=== PATIENT | female | born 1955 | race Caucasian/White ===

== ENCOUNTER 2020-09-01 14:34 | Outpatient (CLI) | payer BC, SELFPAY ==
--- NOTE | 2020-09-01 14:49 | XRR_ITS ---
PROCEDURE INFORMATION: Exam: XR Lumbosacral Spine, 2 or 3 Views Exam date and time: 09/01/2020 2:52 PM Age: 65 years old Clinical indication: Pain and injury or trauma; Blunt trauma (contusions or hematomas); Low back pain; Injury details: Frequent falls i the last 6 weeks; Prior surgery; Additional info: Acute back pain TECHNIQUE: Imaging protocol: XR of the lumbosacral spine, 2 or 3 views. COMPARISON: MRI Lumbar Spine w/o [id number] 05/10/2016 7:16 AM FINDINGS: Bones/joints: Extensive surgical hardware is seen in the lower lumbar spine. Anterior surgical fusion seen in the L4 and L5 and L5-S1 levels. Metallic screws are seen in the anterior aspect of these levels. Posterior transpedicular screws and rods are in place posterior to the L4-L5 and S1 levels. No acute fracture. Normal alignment. Soft tissues: Unremarkable. XR/XR lumbar spine 2-3V* [id number] IMPRESSION: 1. Extensive orthopedic hardware is seen in the lumbar spine. 2. Otherwise negative for acute bony abnormality
== END 2020-09-01 14:35 | disposition home or self-care (01) ==
LOC: RAD 14:46
PROVIDERS: Family Provider Family Medicine; PCP Family Medicine; Visit Provider Family Medicine
DX: M54.5 Low back pain (principal)
CPT/HCPCS: 72100

== ENCOUNTER 2020-11-02 15:57 | Emergency (ER) | payer BC, SELFPAY ==
[2020-11-02 16:09] VITALS: BP 158/117; PULSE 147; RESP 22; TEMP 36.6; O2SAT 95; BMI 37.8
--- NOTE | 2020-11-02 16:14 | XRR_ITS ---
PROCEDURE INFORMATION: Exam: XR Chest Exam date and time: 11/02/2020 4:18 PM Age: 65 years old Clinical indication: Shortness of breath; Additional info: Arrythmia, SOB TECHNIQUE: Imaging protocol: XR of the chest Views: 1 view. COMPARISON: No relevant prior studies available. FINDINGS: Lungs: The lungs are somewhat hyperinflated with increased interstitial markings, likely representing COPD. No evidence of focal consolidation to suggest pneumonia. Pleural spaces: Unremarkable. No pleural effusion. No pneumothorax. Heart/Mediastinum: Unremarkable. No cardiomegaly. Bones/joints: Unremarkable. XR/XR chest 1V portable [id number] IMPRESSION: No evidence of focal consolidation. COPD changes.
--- NOTE | 2020-11-02 16:19 | ECG_ITS ---
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 Measurements Intervals [place] Rate: 146 P: MI: QRS: 72 QRSD: 110 T: 78 QT: 318 QTc: 496 Interpretive Statements ATRIAL FLUTTER/TACHYCARDIA WITH RAPID VENTRICULAR RESPONSE ST DEPRESSION, CONSIDER SUBENDOCARDIAL INJURY [0.1+ mV ST DEPRESSION] INTERPRETATION BASED ON A DEFAULT AGE OF 40 YEARS No previous ECG available for comparison Electronically Signed On 11-02-2020 22:49:39 CDT by Lacy Kauffman M.D. [id number] f
--- NOTE | 2020-11-02 16:24 | W.ED.ARRPALP ---
HPI - Arrhythmia/Palpitations General: Chief Complaint: Arrhythmia/Palpitations Stated Complaint: SOB AND HIGH HEART RATE Time Seen by Provider: 11/02/20 16:13 Source: patient and family Mode of arrival: ambulatory Limitations: no limitations History of Present Illness: HPI narrative: Remote history of [id number] female woke up from a nap less than an hour ago with palpitations, lightheadedness, and shortness of breath. She has a history of SVT >5 years ago, was treated with metoprolol for period of time, but it was discontinued over 3 years ago. She currently is wearing a Holter monitor because of frequent palpitations. Denies any caffeine, [id number] decongestants, or other triggers. Has not been ill recently with GI or respiratory symptoms. No recent change in medications. She denies chest pain, diaphoresis, nausea/vomiting. She does have a remote history of DVT X 1, occured >20 years ago. smoked cigarettes at that time. MD complaint: rapid heart beat, heart racing , skipped beats , palpitations and irregular heart beat Onset (ago): hour(s) Duration: constant Severity: severe Context: occurred during rest and awoke with symptoms Arrhythmia history: SVT Associated symptoms: Reports pre-syncope and short of breath; Deny cough, diaphoresis, nausea, syncope or vomiting Treatments prior to arrival: vagal maneuvers Review of Systems General: Reports: 10 or more systems reviewed and unremarkable except in HPI and below Const: Denies: fever(s), chills, body aches, change in appetite, change in weight, fatigue, malaise, night sweats, diaphoresis or change in sleep pattern Eyes: Denies: change in vision, blurry vision or blind spots ENMT: Denies: odynophagia, disequilibrium, nasal congestion or nasal obstruction Card: Reports: palpitations, irregular heart rhythm, lightheadedness, pre-syncope, dyspnea on exertion and orthopnea; Denies: chest pain, edema, swelling of feet/ankles or syncope Resp: Reports: dyspnea; Denies: productive cough, non-productive cough, pain on inspiration or chest congestion GI: Denies: abdominal pain, nausea or vomiting : Denies: difficulty voiding, dysuria or urinary frequency Musc: Denies: neck pain, back pain, extremity pain or extremity swelling Skin/Breast: Denies: rash, pruritus or erythema Neuro: Denies: headache(s), numbness in extremities, weakness in extremities or lack of coordination PFSH ED PFSH: Medical History Anxiety Chronic GERD DVT (deep venous thrombosis) Hypercholesteremia Lichen sclerosus et atrophicus Spinal stenosis SVT (supraventricular tachycardia) Surgical History 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 Dx with endometriosis History of cholecystectomy (~1996) History of lumbar fusion (08/18/16) History of lung surgery (~2004) Social History Smoking and tobacco status: former smoker Quit status (tobacco): has quit using tobacco Year quit tobacco: 1989 Alcohol intake: current Physical Exam Const: COMMON NORMALS: patient oriented x3 and no limitations EXAM LIMITATIONS: altered mental status GENERAL APPEARANCE: cooperative, anxious and ill appearing; not frail appearing, not Limp noted, not diaphoretic and not Edematous ORIENTATION/CONSCIOUSNESS: Yes awake, Yes oriented to person, Yes oriented to place and Yes oriented to time HENMT: COMMON NORMALS: normocephalic and atraumatic HEAD & SCALP: normal to inspection, normocephalic and atraumatic FACE & SINUS: normal facial exam and face symmetric Eye: COMMON NORMALS: Equal, round and reactive pupils present, EOMs intact bilaterally, conjunctivae normal and no scleral icterus CONJUNCTIVA: Yes conjunctivae normal SCLERA: sclerae normal PUPIL: Yes Equal, round and reactive pupils present Neck/C-Spine: COMMON NORMALS: full ROM, no lymphadenopathy, supple, no JVD and Thyroid normal THYROID: Thyroid normal Chest: COMMONS NORMALS: normal inspection of the chest and normal palpation of entire chest wall Resp: COMMON NORMALS: normal respiratory effort, No use of accessory muscles and clear to auscultation bilaterally EFFORT & INSPECTION: Yes able to speak in complete sentences, No tachypneic, No respiratory distress, No labored, No stridor and No Actively coughing AUSCULTATION: clear to auscultation bilaterally Cardio: COMMON NORMALS: no JVD JUGULAR VENOUS DISTENTION: no JVD RATE: tachycardic RHYTHM: abnormal rhythm irregularly irregular GI: COMMON NORMALS: Normal to inspection, nondistended, normoactive bowel sounds present, Soft to palpation and non-tender PALPATION: Yes Soft to palpation Extremity: COMMON NORMALS: normal to inspection, full ROM, no clubbing, cyanosis or edema and no pedal edema Neuro: COMMON NORMALS: patient oriented x3, CN's II-XII intact bilaterally, moves all extremities, no focal motor deficits and no sensory deficits noted SENSORIUM/ORIENTATION: Yes oriented to person, Yes oriented to place and Yes oriented to time Skin: COMMON NORMALS: no rashes or lesions noted, no wounds and turgor normal GENERAL SKIN EXAM: no rashes or lesions noted and turgor normal Course Vital Signs: Vital signs: Vital Signs Temperature 97.9 F 11/02/20 16:09 Pulse Rate 62 11/02/20 18:19 Respiratory Rate 18 11/02/20 18:19 Blood Pressure 112/66 11/02/20 18:19 Pulse Oximetry 94 11/02/20 18:19 MDM - Arrhythmia/Palpitations MDM Narrative: Medical decision making narrative: 65-year-old female presenting with palpitations and lightheadedness that woke her up from a nap shortly before coming to the ED. Initial EKG showed atrial A. fib/flutter with RVR, rates in 140-160. Hypertensive. I reviewed the chest x-ray: No acute infiltrates, pleural effusions, or cardiomegaly. Given metoprolol 5 mg IV x1, with good results, but she was given a p.o. dose of 50 mg. She remained in sinus rhythm with heart rates 50-80 and normal blood pressure, symptoms resolved. Lab work otherwise unremarkable. TSH normal. UA clear. Normal troponin. Instructed to call her commercial insurance underwriter to schedule an appointment first thing tomorrow morning. Start metoprolol 25 mg twice daily. The onset of her arrhythmia was during sleep; so she may want to inquire about getting a sleep study. Lab Data: Labs: Lab Results 11/02/20 11/02/20 11/02/20 Range/Units 16:13 16:13 16:13 WBC 9.2 (4.0-10.0) 10^3/ uL RBC 4.47 (4.1-5.3) 10^6/u L Hgb 15.0 (11.5-15.3) g/dL Hct 44.2 (37.0-47.0) % MCV 98.9 (81-99) fL MCH 33.6 (28.0-34.0) pg MCHC 33.9 (30.0-36.0) g/dL RDW 13.4 (12.1-15.1) % Plt Count 254 (130-400) 10^3/c mm MPV 9.7 (7.4-10.4) fL Neut % (Auto) 52.3 % Lymph % (Auto) 33.6 % [place] % (Auto) 9.6 % Eos % (Auto) 3.8 % Baso % (Auto) 0.5 % Neut # (Auto) 4.80 (1.8-7.7) 10^3/u L Lymph # (Auto) 3.1 (0.8-4.8) 10^3/u L [place] # (Auto) 0.9 (0.2-0.9) 10^3/u L Eos # (Auto) 0.4 (0.0-0.8) 10^3/u L Baso # (Auto) 0.1 (0.0-0.1) 10^3/u L Nucleated RBC % (a uto) 0 % Nucleated RBCs # 0.0 /100WBC PT 13.70 (12.1-14.9) SECO NDS INR 1.02 (0.8-1.2) D-Dimer 0.47 (0-0.59) ug/mIFE U Sodium 143 (136-145) mmol/L Potassium 3.9 (3.5-5.1) mmol/L Chloride 109 H (98-107) mmol/L Carbon Dioxide 22 (22-29) mmol/L Anion Gap 15.9 (5-19) BUN 27 H (8-23) mg/dL Creatinine 0.5 (0.5-0.9) mg/dL GFR Calculation 123.8 (90-130) mL/min Glucose 109 (65-115) mg/dL Calculated Osmolal ity 302 H (285-295) mOsm/k g Calcium 9.5 (8.5-10.5) mg/dL Magnesium 1.9 (1.7-2.3) mg/dL Total Bilirubin 0.5 (0.15-1.2) mg/dL AST 15 (0-32) U/L ALT 12 (0-33) U/L Alkaline Phosphata se 77 (35-105) IU/L Troponin T Baselin e (0-10) ng/L Troponin T 120 Min hughes (0-10) ng/L Delta Troponin T (0-10) ABS# NT-Pro-B Natriuret Pep 70 (0-125) pg/mL Total Protein 6.5 L (6.6-8.7) g/dL Albumin 4.4 (3.5-5.2) g/dL Globulin 2.1 (1.3-4.6) g/dL TSH 1.09 (0.27-4.20) uIU/ mL Urine Color (Yellow) Urine Appearance (CLEAR) Urine pH (5-7) Ur Specific Gravit y (1.005-1.030) Urine Protein (Negative) Urine Glucose (UA) (Normal) Urine Ketones (Negative) Urine Blood (Negative) Urine Nitrate (Negative) Urine Bilirubin (Negative) Urine Urobilinogen (Negative) mg/dL Ur Leukocyte Katlyn ase (Negative) 11/02/20 11/02/20 11/02/20 Range/Units 16:13 16:47 18:30 WBC (4.0-10.0) 10^3/ uL RBC (4.1-5.3) 10^6/u L Hgb (11.5-15.3) g/dL Hct (37.0-47.0) % MCV (81-99) fL MCH (28.0-34.0) pg MCHC (30.0-36.0) g/dL RDW (12.1-15.1) % Plt Count (130-400) 10^3/c mm MPV (7.4-10.4) fL Neut % (Auto) % Lymph % (Auto) % [place] % (Auto) % Eos % (Auto) % Baso % (Auto) % Neut # (Auto) (1.8-7.7) 10^3/u L Lymph # (Auto) (0.8-4.8) 10^3/u L [place] # (Auto) (0.2-0.9) 10^3/u L Eos # (Auto) (0.0-0.8) 10^3/u L Baso # (Auto) (0.0-0.1) 10^3/u L Nucleated RBC % (a uto) % Nucleated RBCs # /100WBC PT (12.1-14.9) SECO NDS INR (0.8-1.2) D-Dimer (0-0.59) ug/mIFE U Sodium (136-145) mmol/L Potassium (3.5-5.1) mmol/L Chloride (98-107) mmol/L Carbon Dioxide (22-29) mmol/L Anion Gap (5-19) BUN (8-23) mg/dL Creatinine (0.5-0.9) mg/dL GFR Calculation (90-130) mL/min Glucose (65-115) mg/dL Calculated Osmolal ity (285-295) mOsm/k g Calcium (8.5-10.5) mg/dL Magnesium (1.7-2.3) mg/dL Total Bilirubin (0.15-1.2) mg/dL AST (0-32) U/L ALT (0-33) U/L Alkaline Phosphata se (35-105) IU/L Troponin T Baselin e 8 (0-10) ng/L Troponin T 120 Min hughes 6.00 (0-10) ng/L Delta Troponin T -2.00 L (0-10) ABS# NT-Pro-B Natriuret Pep (0-125) pg/mL Total Protein (6.6-8.7) g/dL Albumin (3.5-5.2) g/dL Globulin (1.3-4.6) g/dL TSH (0.27-4.20) uIU/ mL Urine Color Colorless (Yellow) Urine Appearance Clear (CLEAR) Urine pH 6 (5-7) Ur Specific Gravit y 1.005 (1.005-1.030) Urine Protein Neg (Negative) Urine Glucose (UA) Norm (Normal) Urine Ketones Negative (Negative) Urine Blood Neg (Negative) Urine Nitrate Negative (Negative) Urine Bilirubin Neg (Negative) Urine Urobilinogen Norm (Negative) mg/dL Ur Leukocyte Katlyn ase Negative (Negative) Discharge Plan Discharge Patient Disposition: Home Clinical Impression: Palpitations, Ventricular premature beats Atrial flutter Qualifiers: Atrial flutter type: unspecified Qualified Code(s): I48.92 - Unspecified atrial flutter Condition: Stable Prescriptions: New metoprolol tartrate 25 mg tablet 25 mg PO BID Qty: 30 RF: 0 metoprolol tartrate 25 mg tablet 25 mg PO BID Qty: 30 RF: 0 Continued omeprazole 20 mg capsule,delayed release(DR/EC) 20 mg PO DAILY RF: 0 acetaminophen [Tylenol Extra Strength] 500 mg tablet 500 mg PO Q6H PRNRF: 0 glucosamine-chondroitin 900 mg tablet PO RF: 0 tramadol 50 mg tablet 50 mg PO DAILY RF: 0 alprazolam [Xanax] 0.5 mg tablet 0.5 mg PO DAILY PRNRF: 0 multivitamin Capsule 1 cap PO DAILY RF: 0 meloxicam 15 mg tablet,disintegrating 15 mg PO DAILY RF: 0 clobetasol 0.05 % ointment 1 applic TOPICAL BID 14 Days Qty: 45 RF: 2 fluconazole [Diflucan] 150 mg tablet 150 mg PO Q3D Qty: 2 RF: 0 Discharge Orders: Discharge ED (Routine); Ordered 11/02/20 Ordered By: Mary Cabrera Referrals: Malcolm Somers MD [Primary Care Provider] - Discharge Diet: Advance as tolerated Discharge Activity: Increase activity as tolerated Patient Instructions: Supraventricular Tachycardia (ED), Palpitations (ED), Opioid Safety Activity Restrictions/Additional Instructions: Call your commercial insurance underwriter tomorrow morning to request a follow-up appointment as soon as possible. Until then take metoprolol 25 mg twice daily. Avoid caffeine, decongestants, or other triggers. Ask about getting a sleep study. Return immediately to the ER if you develop chest pain, recurrent palpitations or dizziness, difficulty breathing, nausea, vomiting, or any other worsening symptoms. Coding Level of Care Code ED Payloader Machine Operator for Dianelys Fwd Exam Comprehensive
[2020-11-02 16:29] LABS: Basophils # 0.1 10^3/uL (0.0-0.1); Basophils % 0.5 %; Eosinophils # 0.4 10^3/uL (0.0-0.8); Eosinophils % 3.8 %; Hematocrit 44.2 % (37.0-47.0); Lymphocytes # 3.1 10^3/uL (0.8-4.8); Lymphocytes % 33.6 %; Mean Corpuscular HGB Conc 33.9 g/dL (30.0-36.0); Mean Corpuscular Hemoglobin 33.6 pg (28.0-34.0); Mean Corpuscular Volume 98.9 fL (81-99); Mean Platelet Volume 9.7 fL (7.4-10.4); Monocytes # 0.9 10^3/uL (0.2-0.9); Monocytes % 9.6 %; Neutrophils % 52.3 %; Nucleated Red Blood Cells % 0 %; Platelet Count 254 10^3/cmm (130-400); Red Blood Count 4.47 10^6/uL (4.1-5.3); Red Cell Distribution Width 13.4 % (12.1-15.1); White Blood Count 9.2 10^3/uL (4.0-10.0)
[2020-11-02] MEDS: metoprolol tartrate 1 mg/1 mL SDV 5 mL 5 MG IV (16:32)
[2020-11-02 16:38] LABS: INR 1.02 (0.8-1.2)
[2020-11-02 16:42] LABS: D Dimer 0.47 ug/mIFEU (0-0.59)
[2020-11-02 16:55] LABS: Add Urine Microscopic? NO
[2020-11-02 16:56] LABS: Bilirubin Urine Neg (Negative); Blood Urine Neg (Negative); Glucose Urine UA Norm (Normal); Ketones Urine Negative (Negative); Leukocyte Esterase Urine Negative (Negative); Nitrate Urine Negative (Negative); Protein Urine Neg (Negative); Specific Gravity, Urine 1.005 (1.005-1.030); Urine Appearance Clear (CLEAR); Urine Color Colorless (Yellow); Urobilinogen Urine Norm (Negative); pH Urine 6 (5-7)
[2020-11-02 16:58] LABS: Alanine Aminotransferase 12 U/L (0-33); Albumin Level 4.4 g/dL (3.5-5.2); Alkaline Phosphatase 77 IU/L (35-105); Anion Gap 15.9 (5-19); Aspartate Amino Transferase 15 U/L (0-32); Blood Urea Nitrogen 27 mg/dL (8-23); Calcium 9.5 mg/dL (8.5-10.5); Carbon Dioxide 22 mmol/L (22-29); Chloride 109 mmol/L (98-107); Globulin 2.1 g/dL (1.3-4.6); Glomerular Filtration Rate 123.8 mL/min (90-130); Glucose 109 mg/dL (65-115); Magnesium 1.9 mg/dL (1.7-2.3); NT Pro B Type Natriuretic Pept 70 pg/mL (0-125); Osmolality Calculated 302 mOsm/kg (285-295); Potassium 3.9 mmol/L (3.5-5.1); Sodium 143 mmol/L (136-145); Thyroid Stimulating Hormone 1.09 uIU/mL (0.27-4.20); Total Bilirubin 0.5 mg/dL (0.15-1.2); Total Protein 6.5 g/dL (6.6-8.7)
[2020-11-02] MEDS: metoprolol tartrate 50 mg Tablet PO (17:10)
[2020-11-02 17:15] VITALS: BP 115/73; PULSE 73; RESP 18; O2SAT 98
[2020-11-02 17:27] LABS: Troponin(5th) Baseline 8 ng/L (0-10)
[2020-11-02 18:19] VITALS: BP 112/66; PULSE 62; RESP 18; O2SAT 94
[2020-11-02 19:15] VITALS: BP 110/74; PULSE 70; RESP 18; O2SAT 98
== END 2020-11-02 19:16 | disposition home or self-care (01) ==
PROVIDERS: Emergency Provider Family Medicine; PCP Family Medicine
DX: I49.3 Ventricular premature depolarization (principal); I48.92 Unspecified atrial flutter; Z87.891 Personal history of nicotine dependence
CPT/HCPCS: 71045; 80053; 81003; 83735; 83880; 84443; 84484; 85025; 85378; 85610; 93005; 96374; 99284; J3490

== ENCOUNTER 2020-11-06 09:29 | Outpatient (CLI) | payer BC, SELFPAY ==
[2020-11-06 10:29] VITALS: BMI 39.1
--- NOTE | 2020-11-06 10:29 | ECG_ITS ---
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 Interpretive Statements NAME OF STUDY: LEXISCAN SESTAMIBI STRESS TEST INDICATION: Chest Pain, PROCEDURE: At the baseline, the EKG revealed sinus bradycardia with a rate of 55 bpm. 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 The baseline blood pressure was 130/80 mm Hg with a heart rate of 55 beats/min. Lexiscan was infused over a period of 20 seconds. A total of 0.4 milligrams of Lexiscan was infused. The stress phase was continued for a total of 5 minutes. Heart rate at the end of the stress phase was 73 with a blood pressure 119/72. The EKG at the peak infusion revealed no significant changes. Sestamibi was injected 20 seconds after the Lexiscan infusion. Blood pressure at the end of the recovery phase was 116/70 with a heart rate of 70 per minute. CONCLUSION: 1. No significant EKG changes with the LexiScan infusion 2. No LexiScan induced chest pain or cardiac arrhythmia 3. Normal blood pressure and heart rate response 4. Sestamibi/sestamibi perfusion scan pending; see separate report. Electronically Signed On 11-10-2020 23:22:00 CDT by Lacy Kauffman M.D. [id number]
--- NOTE | 2020-11-06 10:30 | NMCV_ITS ---
NM edwin perf SPECT r/s* [id number] BarrazaNathan Age: 65 Gender: F : 1955 Exam Date: 11/06/2020 11:06 Ordering Phys: Malcolm Somers MD Technologist: BASIA Fuller Exam Location: [facility] Indications: CHEST PAIN STRESS TEST [facility] IMAGE PROTOCOL Rest/Stress 1 Lexiscan Day Radiopharmaceutical Dose (mCi) Administration Site Administered by Rest: Tc-99m 10.8 IV BASIA Gupta Sestamibi Stress:Tc-99m 32.6 IV BASIA Fuller Sestamiyoanna Rest: 06-Nov-2020 60 Discovery 630 Stress: 06-Nov-2020 30 Discovery 630 0.4mg Lexiscan. Images obtained in supine and prone position. SPECT RESULTS Technical Quality: Excellent Raw Data Analysis: Normal Image Corrections: No attenuation or motion correction applied Summed Stress Score: 1 Summed Rest Score: 0 Summed Difference Score: 1 PERFUSION FINDINGS A small area of decreased tracer uptake in the LV apex with reversibility, based on the polar plots. However no reversible defects were noted with the SPECT imaging. No other significant perfusion abnormalities were noted . FUNCTIONAL RESULTS (calculated via Gated SPECT) Stress Image LV EF (%): 75 Stress EDV (mL):71 TID: 0.89 Stress ESV (mL):18 FUNCTIONAL FINDINGS: Segmental wall motion analysis revealed mild hypokinesia of the LV apex IMPRESSIONS 1. Myocardial perfusion imaging revealing a very small area of inconsistent reversible defect in the LV apex, most likely artifactual. 2. Normal LV ejection fraction of 75%. 3. LV wall motion analysis revealing mild hypokinesia of the LV apex. 4. Normal LV volume. Possibly no significant coronary ischemia, based on the above findings Dr Lacy Kauffman MD [facility]IN [facility] (Electronically Signed) Final Date: 06 November 2020 20:12 S
[2020-11-06 12:02] VITALS: BP 116/70; PULSE 70
[2020-11-06] MEDS: regadenoson 0.4 Mg/5 ml Syringe IVP (12:04)
== END 2020-11-06 09:30 | disposition home or self-care (01) ==
PROVIDERS: PCP Family Medicine; Visit Provider Family Medicine
DX: R07.9 Chest pain, unspecified (principal)
CPT/HCPCS: 78452; 93017; A9500; J2785

== ENCOUNTER 2020-11-20 19:37 | Inpatient (IN) | payer BC, MEDICARE, SELFPAY ==
[2020-11-20] VITALS (8 sets, daily range): BP systolic 93–157; BP diastolic 61–81; PULSE 84–125; RESP 16–21; TEMP 36.3; O2SAT 95–99; BMI 38.2
--- NOTE | 2020-11-20 20:00 | ECG_ITS ---
[facility] Test Date: 2020-11-20 Pat Name: Nathan Barraza Department: Room: Gender: Female Arch Support Maker: : 1955 Requested By: Delvis Gonzalez Order Number: [id number] Wall MD: Renetta Petty M.D. Measurements Intervals [place] Rate: 127 P: MS: QRS: 60 QRSD: 88 T: -49 QT: 282 QTc: 411 Interpretive Statements ATRIAL FIBRILLATION WITH RAPID VENTRICULAR RESPONSE NONSPECIFIC ST & T-WAVE ABNORMALITY Compared to ECG 11/02/2020 16:03:05 T-wave abnormality now present Atrial flutter no longer present ST (T wave) deviation no longer present Electronically Signed On 11-22-2020 5:21:03 CDT by Renetta Petty M.D. [id number] f
--- NOTE | 2020-11-20 20:00 | XR_ITS ---
WS: [id number] Portable AP upright chest, 11/20/2020 Clinical Data: palpitations Comparison: Portable chest, 11/02/2020. Findings: No nodules, masses or effusions are seen. The heart is normal. The pulmonary vascularity is not increased. No pneumonia or pneumothorax is seen. XR/XR chest 1V portable [id number] Impression: Negative chest.
--- NOTE | 2020-11-20 20:18 | W.ED.ARRPALP ---
HPI - Arrhythmia/Palpitations General: Chief Complaint: Arrhythmia/Palpitations Stated Complaint: RACING HEART, LIGHT HEADED Time Seen by Provider: 11/20/20 20:04 History of Present Illness: HPI narrative: The patient is a 65-year-old female with past medical history of coronary artery disease and remote history of SVT comes to the ER complaining of symptomatic palpitations. She was seen here earlier this month and diagnosed with A. fib RVR, given a single dose of metoprolol which converted her heart rhythm to normal sinus rhythm. She was discharged with metoprolol 50 mg twice daily. 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 Kauffman reduce that to 25 mg twice daily. She has been fine until 7 PM today she began to have palpitations again. On arrival to the ER she is in atrial fibrillation with a rate in the 130s. Denies chest pain. complaint: palpitations Duration: constant Severity: moderate Arrhythmia history: atrial fibrillation and SVT Associated symptoms: Reports no associated symptoms; Deny anxiety Review of Systems General: Reports: 10 or more systems reviewed and unremarkable except in HPI and below Const: Denies: fatigue Eyes: Denies: change in vision, blurry vision or eye redness ENMT: Denies: throat pain, swelling of lips/tongue, ear or mastoid pain or nasal congestion Card: Reports: palpitations; Denies: chest pain, irregular heart rhythm, edema, dyspnea on exertion or orthopnea Resp: Denies: dyspnea, productive cough or non-productive cough GI: Denies: abdominal pain, diarrhea or GI cramping : Denies: flank pain, difficulty voiding, urinary frequency or urinary urgency Musc: Denies: neck pain, back pain, extremity pain, joint pain, joint redness, limited range of motion or muscle weakness Skin/Breast: Denies: rash, pruritus, erythema, skin pain or skin tenderness Neuro: Denies: headache(s), numbness in extremities, weakness in extremities, sensory changes, difficulty walking, dizziness, confusion or Slurred speech present Psych: Denies: anxiety or depression Endo: Denies: polyuria All/Imm: Denies: urticaria, throat swelling or tongue swelling PFSH ED PFSH: Medical History Anxiety Chronic GERD DVT (deep venous thrombosis) Dyspnea on exertion Endometriosis Fatigue Gastric cardia ulcer Hypercholesteremia Lichen sclerosus et atrophicus Palpitations Spinal stenosis SVT (supraventricular tachycardia) Trigeminal neuralgia Weakness Surgical History 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 Dx with endometriosis History of cholecystectomy (~1996) History of lumbar fusion (08/18/16) History of lung surgery (~2004) Family History Mother Cancer Sister Cancer Schizophrenia Father Stroke CAD (coronary artery disease) Brother CAD (coronary artery disease) Bleeding disorder Clotting disorder Brother CAD (coronary artery disease) Grandmother Stroke Denies family history of Diabetes Dementia Chronic kidney disease (CKD) Suicide Anesthesia complication Lung disease Social History Smoking and tobacco status: former smoker Quit status (tobacco): has quit using tobacco Year quit tobacco: 1989 Alcohol intake: current Physical Exam Const: COMMON NORMALS: no acute distress, average body habitus, patient oriented x3, no limitations, healthy appearing, alert and well nourished GENERAL APPEARANCE: cooperative, comfortable, well kempt, well developed and anxious ORIENTATION/CONSCIOUSNESS: Yes awake, Yes oriented to person, Yes oriented to place and Yes oriented to time HENMT: COMMON NORMALS: normocephalic, external ears normal and Normal external nose present HEAD & SCALP: normal to inspection and normocephalic NOSE: Normal external nose present EXTERNAL EAR: Yes external ears normal MOUTH: Normal oral and palatal mucosa present THROAT: posterior oropharynx normal Eye: COMMON NORMALS: Equal, round and reactive pupils present and EOMs intact bilaterally GENERAL EYE: appearance normal, both eyes and all related structures PUPIL: Yes Equal, round and reactive pupils present Neck/C-Spine: COMMON NORMALS: full ROM, no lymphadenopathy, no meningeal signs and no JVD GENERAL: Yes normal visual inspection Lymph: LYMPHATIC: no lymphadenopathy noted Chest: COMMONS NORMALS: normal inspection of the chest and normal palpation of entire chest wall Resp: COMMON NORMALS: normal respiratory effort, No retractions, No use of accessory muscles, clear to auscultation bilaterally and percussion normal EFFORT & INSPECTION: Yes able to speak in complete sentences AUSCULTATION: clear to auscultation bilaterally PERCUSSION: percussion normal Cardio: COMMON NORMALS: no JVD, S1 normal heart sound present, S2 normal heart sound present and Peripheral pulses 2+ throughout RATE: tachycardic RHYTHM: abnormal rhythm irregularly irregular HEART SOUNDS: S1 normal heart sound present and S2 normal heart sound present PERIPHERAL PULSES: Peripheral pulses 2+ throughout OTHER: A. fib RVR rate 120s to 130s. GI: COMMON NORMALS: Normal to inspection, nondistended, normoactive bowel sounds present, Soft to palpation, non-tender and no masses INSPECTION: Yes normal to inspection PALPATION: Yes Soft to palpation : COMMON NORMALS: Yes no CVA tenderness BLADDER/KIDNEY EXAM: Yes no CVA tenderness Back/Pelvis: COMMON NORMALS: no CVA tenderness, thoracic and lumbar spine normal to inspection, no thoracic nor lumbar tenderness and thoraco-lumbar ROM normal Extremity: COMMON NORMALS: normal to inspection, full ROM, capillary refill normal, no joint enlargement and no pedal edema GENERAL: Yes normal exam except as noted Neuro: COMMON NORMALS: patient oriented x3, CN's II-XII intact bilaterally, moves all extremities, no focal motor deficits, no sensory deficits noted and gait normal SENSORIUM/ORIENTATION: Yes alert, Yes oriented to person, Yes oriented to place and Yes oriented to time MENINGEAL SIGNS: Yes no meningeal signs Psych: COMMON NORMALS: mental status grossly normal, Normal thought process present, cooperative, normal affect and speech normal APPEARANCE: Yes well kempt ATTITUDE: Yes calm SPEECH: Yes normal speech THOUGHT PROCESS: Normal thought process present Skin: COMMON NORMALS: no rashes or lesions noted GENERAL SKIN EXAM: no rashes or lesions noted Course Vital Signs: Vital signs: Vital Signs Temperature 97.4 F L 11/20/20 19:50 Pulse Rate 84 11/20/20 23:06 Respiratory Rate 20 H 11/20/20 23:06 Blood Pressure 122/81 11/20/20 23:06 Pulse Oximetry 98 11/20/20 23:06 MDM - Arrhythmia/Palpitations MDM Narrative: Medical decision making narrative: Patient came to the ER complaining of palpitations which she is symptomatic of. She has a history of coronary artery disease and recently had a nuclear stress test which did show a small area of reversible ischemia at the apex versus artifact. She came in in A. fib RVR and was recently seen for the same complaint, given a dose of IV metoprolol and discharged with 50 mg twice daily of metoprolol. The dose had since been reduced to 25 mg twice daily as it made her feel lethargic at the higher dose. Today her symptoms started and she was in A. fib with rapid ventricular rate. She was given a fluid bolus which did reduce her rate to the low 100s. Discussed with Dr. Petty who recommended giving her an amiodarone bolus and admitting to the CSU. This was done and Dr. Heath accepted to CSU. Lab Data: Labs: Lab Results 11/20/20 11/20/20 11/20/20 Range/Units 20:30 20:30 20:30 WBC 10.7 H (4.0-10.0) 10^3/ uL RBC 4.39 (4.1-5.3) 10^6/u L Hgb 14.4 (11.5-15.3) g/dL Hct 43.2 (37.0-47.0) % MCV 98.4 (81-99) fL MCH 32.8 (28.0-34.0) pg MCHC 33.3 (30.0-36.0) g/dL RDW 13.2 (12.1-15.1) % Plt Count 259 (130-400) 10^3/c mm MPV 10.0 (7.4-10.4) fL Neut % (Auto) 57.7 % Lymph % (Auto) 30.7 % [place] % (Auto) 8.1 % Eos % (Auto) 2.7 % Baso % (Auto) 0.5 % Neut # (Auto) 6.16 (1.8-7.7) 10^3/u L Lymph # (Auto) 3.3 (0.8-4.8) 10^3/u L [place] # (Auto) 0.9 (0.2-0.9) 10^3/u L Eos # (Auto) 0.3 (0.0-0.8) 10^3/u L Baso # (Auto) 0.1 (0.0-0.1) 10^3/u L Nucleated RBC % (a uto) 0 % Nucleated RBCs # 0.0 /100WBC D-Dimer 0.38 (0-0.59) ug/mIFE U Sodium 141 (136-145) mmol/L Potassium 3.8 (3.5-5.1) mmol/L Chloride 106 (98-107) mmol/L Carbon Dioxide 26 (22-29) mmol/L Anion Gap 12.8 (5-19) BUN 23 (8-23) mg/dL Creatinine 0.7 (0.5-0.9) mg/dL GFR Calculation 84.0 L (90-130) mL/min Glucose 138 H (65-115) mg/dL Calculated Osmolal ity 298 H (285-295) mOsm/k g Calcium 8.9 (8.5-10.5) mg/dL Total Bilirubin 0.3 (0.15-1.2) mg/dL AST 20 (0-32) U/L ALT 22 (0-33) U/L Alkaline Phosphata se 85 (35-105) IU/L Creatine Kinase 95 (26-192) U/L Troponin T Baselin e (0-10) ng/L Troponin T 120 Min [place] (0-10) ng/L Delta Troponin T (0-10) ABS# NT-Pro-B Natriuret Pep 116 (0-125) pg/mL Total Protein 6.0 L (6.6-8.7) g/dL Albumin 4.1 (3.5-5.2) g/dL Globulin 1.9 (1.3-4.6) g/dL Urine Color (Yellow) Urine Appearance (CLEAR) Urine pH (5-7) Ur Specific Gravit y (1.005-1.030) Urine Protein (Negative) Urine Glucose (UA) (Normal) Urine Ketones (Negative) Urine Blood (Negative) Urine Nitrate (Negative) Urine Bilirubin (Negative) Urine Urobilinogen (Negative) mg/dL Ur Leukocyte Kat[place] ase (Negative) Urine RBC (0-2) /hpf Urine WBC (0-5) /hpf Ur Squamous Epith Cells (0-5) /hpf Amorphous Sediment Urine Bacteria (NONE) /hpf 11/20/20 11/20/20 11/20/20 Range/Units 20:30 20:45 22:36 WBC (4.0-10.0) 10^3/ uL RBC (4.1-5.3) 10^6/u L Hgb (11.5-15.3) g/dL Hct (37.0-47.0) % MCV (81-99) fL MCH (28.0-34.0) pg MCHC (30.0-36.0) g/dL RDW (12.1-15.1) % Plt Count (130-400) 10^3/c mm MPV (7.4-10.4) fL Neut % (Auto) % Lymph % (Auto) % [place] % (Auto) % Eos % (Auto) % Baso % (Auto) % Neut # (Auto) (1.8-7.7) 10^3/u L Lymph # (Auto) (0.8-4.8) 10^3/u L [place] # (Auto) (0.2-0.9) 10^3/u L Eos # (Auto) (0.0-0.8) 10^3/u L Baso # (Auto) (0.0-0.1) 10^3/u L Nucleated RBC % (a uto) % Nucleated RBCs # /100WBC D-Dimer (0-0.59) ug/mIFE U Sodium (136-145) mmol/L Potassium (3.5-5.1) mmol/L Chloride (98-107) mmol/L Carbon Dioxide (22-29) mmol/L Anion Gap (5-19) BUN (8-23) mg/dL Creatinine (0.5-0.9) mg/dL GFR Calculation (90-130) mL/min Glucose (65-115) mg/dL Calculated Osmolal ity (285-295) mOsm/k g Calcium (8.5-10.5) mg/dL Total Bilirubin (0.15-1.2) mg/dL AST (0-32) U/L ALT (0-33) U/L Alkaline Phosphata se (35-105) IU/L Creatine Kinase (26-192) U/L Troponin T Baselin e 10 (0-10) ng/L Troponin T 120 Min [place] 9.24 (0-10) ng/L Delta Troponin T -0.76 L (0-10) ABS# NT-Pro-B Natriuret Pep (0-125) pg/mL Total Protein (6.6-8.7) g/dL Albumin (3.5-5.2) g/dL Globulin (1.3-4.6) g/dL Urine Color Yellow (Yellow) Urine Appearance Clear (CLEAR) Urine pH 5 (5-7) Ur Specific [place]it y 1.015 (1.005-1.030) Urine Protein Neg (Negative) Urine Glucose (UA) Norm (Normal) Urine Ketones Negative (Negative) Urine Blood Neg (Negative) Urine Nitrate Negative (Negative) Urine Bilirubin Neg (Negative) Urine Urobilinogen Norm (Negative) mg/dL Ur Leukocyte [place] ase 1+ H (Negative) Urine RBC 0-4 H (0-2) /hpf Urine WBC 0-4 H (0-5) /hpf Ur Squamous Epith Cells Rare (0-5) /hpf Amorphous Sediment Not Reportable Urine Bacteria Trace (NONE) /hpf Discharge Plan Discharge Patient Disposition: Admitted As Inpatient Clinical Impression: Atrial fibrillation with rapid ventricular response Condition: Stable Coding Level of Care Code ED Topstitcher Lockstitch for Dianelys Fisher
[2020-11-20 20:37] LABS: Basophils # 0.1 10^3/uL (0.0-0.1); Basophils % 0.5 %; Eosinophils # 0.3 10^3/uL (0.0-0.8); Eosinophils % 2.7 %; Hematocrit 43.2 % (37.0-47.0); Hemoglobin 14.4 g/dL (11.5-15.3); Lymphocytes # 3.3 10^3/uL (0.8-4.8); Lymphocytes % 30.7 %; Mean Corpuscular HGB Conc 33.3 g/dL (30.0-36.0); Mean Corpuscular Hemoglobin 32.8 pg (28.0-34.0); Mean Corpuscular Volume 98.4 fL (81-99); Monocytes # 0.9 10^3/uL (0.2-0.9); Monocytes % 8.1 %; Neutrophils # 6.16 10^3/uL (1.8-7.7); Neutrophils % 57.7 %; Nucleated Red Blood Cells % 0 %; Platelet Count 259 10^3/cmm (130-400); Red Blood Count 4.39 10^6/uL (4.1-5.3); Red Cell Distribution Width 13.2 % (12.1-15.1); White Blood Count 10.7 10^3/uL (4.0-10.0)
[2020-11-20 20:58] LABS: Add Urine Microscopic? YES; Bilirubin Urine Neg (Negative); Blood Urine Neg (Negative); Glucose Urine UA Norm (Normal); Ketones Urine Negative (Negative); Leukocyte Esterase Urine 1+ (Negative); Nitrate Urine Negative (Negative); Protein Urine Neg (Negative); Specific Gravity, Urine 1.015 (1.005-1.030); Urine Appearance Clear (CLEAR); Urine Color Yellow (Yellow); Urobilinogen Urine Norm (Negative); pH Urine 5 (5-7)
[2020-11-20 20:59] LABS: Troponin(5th) Baseline 10 ng/L (0-10)
[2020-11-20 21:00] LABS: Add Urine Culture? No; RBC Urine 0-4 /hpf (0-2); Squamous Epithelial Cell Urine RARE /hpf (0-5); WBC Urine 0-4 /hpf (0-5)
[2020-11-20 21:08] LABS: Alanine Aminotransferase 22 U/L (0-33); Albumin Level 4.1 g/dL (3.5-5.2); Alkaline Phosphatase 85 IU/L (35-105); Anion Gap 12.8 (5-19); Aspartate Amino Transferase 20 U/L (0-32); Blood Urea Nitrogen 23 mg/dL (8-23); Calcium 8.9 mg/dL (8.5-10.5); Carbon Dioxide 26 mmol/L (22-29); Chloride 106 mmol/L (98-107); Creatine Phosphokinase 95 U/L (26-192); Globulin 1.9 g/dL (1.3-4.6); Glucose 138 mg/dL (65-115); NT Pro B Type Natriuretic Pept 116 pg/mL (0-125); Osmolality Calculated 298 mOsm/kg (285-295); Potassium 3.8 mmol/L (3.5-5.1); Sodium 141 mmol/L (136-145); Total Bilirubin 0.3 mg/dL (0.15-1.2)
[2020-11-20] MEDS: sodium chloride 0.9% 1,000 ML 999 ML IV (21:18)
[2020-11-20 21:30] LABS: D Dimer 0.38 ug/mIFEU (0-0.59)
[2020-11-20 21:49] LABS: Bacteria Urine TRACE /hpf; Charge for UA Resulting for Rev
--- NOTE | 2020-11-20 22:00 | ECG_ITS ---
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 Measurements Intervals [place] Rate: 81 P: GA: QRS: 73 QRSD: 94 T: 52 QT: 365 QTc: 425 Interpretive Statements ATRIAL FIBRILLATION ABNORMAL RHYTHM ECG Compared to ECG 11/02/2020 16:03:05 Atrial flutter no longer present ST (T wave) deviation no longer present Electronically Signed On 11-22-2020 5:27:42 CDT by Renetta Petty M.D. [id number]
[2020-11-20] MEDS: amiodarone 50 mg/mL SDV 3 mL 150 MG IVP (22:41)
[2020-11-20 23:01] LABS: Troponin 5 2HR 9.24 ng/L (0-10)
[2020-11-20 23:11] LABS: Troponin 5 2HR Delta -0.76 ABS# (0-10)
--- NOTE | 2020-11-20 23:15 | PM.HP ---
Providers/Chief Complaint Primary Care Provider: Malcolm Somers MD Chief Complaint: RACING HEART, LIGHT HEADED History of Present Illness Nathan Barraza is a 65 year old female with past medical history of atrial flutter and atrial fibrillation, possible ischemic heart disease who presents to emergency room with complaints of palpitations for the last couple of days or so. On presentation EKG showed A. fib with RVR with heart rate of 130. She was given 1 L of IV fluids in the emergency room which improved her heart rate. Dr. Petty, cardiology was consulted by ER. She asked for amiodarone bolus and infusion. The patient currently feels much better. She denies any chest pain or shortness of breath. She reports tiredness for last several months at least and she thinks it was due to atrial fibrillation. Recently the dose of her metoprolol was decreased from 25 twice daily to 12.5 twice daily due to bradycardia. Her last stress test was done couple weeks ago and it showed possible ischemic defect in the apex. 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 Kauffman. Review of Systems General: Reports: 10 or more systems reviewed and unremarkable except in HPI and below Medications/Allergies Home Medications Medication Instructions Recorded Confirmed Last Taken Type acetaminophen 500 mg tablet 500 mg PO Q6H PRN 12/26/19 11/18/20 Unknown History antiarthritic combination no.2 900 mg PO 12/26/19 11/18/20 Unknown History mg tablet clobetasol 0.05 % topical ointment 1 applic TOPICAL BID 14 Days #45 gm 12/26/19 11/18/20 Unknown Rx meloxicam 15 mg disintegrating 15 mg PO DAILY 12/26/19 11/18/20 Unknown History tablet multivitamin 1 cap PO DAILY 12/26/19 11/18/20 Unknown History omeprazole 20 mg capsule,delayed 20 mg PO DAILY 12/26/19 11/18/20 Unknown History release tramadol 50 mg tablet 50 mg PO DAILY 12/26/19 11/18/20 Unknown History alprazolam 0.5 mg tablet 0.5 mg PO BID PRN tab 11/18/20 11/18/20 Unknown History cholecalciferol (vitamin D3) 25 50 mcg PO DAILY cap 11/18/20 11/18/20 Unknown History mcg (1,000 unit) capsule methocarbamol 500 mg tablet 500 mg PO BID tab 11/18/20 11/18/20 Unknown History metoprolol tartrate 25 mg tablet 12.5 mg PO BID tab 11/18/20 11/18/20 Unknown History pregabalin 50 mg capsule 50 mg PO DAILY 11/18/20 11/18/20 Unknown History Allergies Allergy/AdvReac Type Severity Reaction Status Date / Time ezetimibe [From Zetia] Allergy Severe unknown Verified 11/18/20 08:27 red yeast rice Allergy Severe unknown Verified 11/18/20 08:27 [id number] Reductase Allergy Severe unknown Verified 11/18/20 08:27 Inhibitor escitalopram [From Lexapro] Allergy Intermediate unknown Verified 11/18/20 08:27 gabapentin Allergy Intermediate unknown Verified 11/18/20 08:27 sulfamethoxazole Allergy Intermediate unknown Verified 11/18/20 08:27 [From Bactrim] trimethoprim [From Bactrim] Allergy Intermediate unknown Verified 11/18/20 08:27 codeine Allergy Unknown Verified 11/18/20 08:27 Penicillins Allergy Unknown Verified 11/18/20 08:27 prochlorperazine Allergy Unknown Verified 11/18/20 08:27 [From Compazine] simvastatin Allergy unknown Verified 11/18/20 08:27 Sulfa (Sulfonamide Allergy Unknown Verified 11/18/20 08:27 Antibiotics) verapamil Allergy unknown Verified 11/18/20 08:27 PFSH Acute PFSH: Medical History Anxiety Chronic GERD DVT (deep venous thrombosis) Dyspnea on exertion Endometriosis Fatigue Gastric cardia ulcer Hypercholesteremia Lichen sclerosus et atrophicus Palpitations Spinal stenosis SVT (supraventricular tachycardia) Trigeminal neuralgia Weakness Surgical History 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 Dx with endometriosis History of cholecystectomy (~1996) History of lumbar fusion (08/18/16) History of lung surgery (~2004) Family History Mother Cancer Sister Cancer Schizophrenia Father Stroke CAD (coronary artery disease) Brother CAD (coronary artery disease) Bleeding disorder Clotting disorder Brother CAD (coronary artery disease) Grandmother Stroke Denies family history of Diabetes Dementia Chronic kidney disease (CKD) Suicide Anesthesia complication Lung disease Social History Smoking and tobacco status: former smoker Quit status (tobacco): has quit using tobacco Year quit tobacco: 1989 Alcohol intake: current Vitals/I&O/Wt Last Vital Signs Temp 97.4 F L 11/20/20 19:50 Pulse 84 11/20/20 23:06 Resp 20 H 11/20/20 23:06 BP 122/81 11/20/20 23:06 Pulse Ox 98 11/20/20 23:06 11/20/20 11/20/20 11/21/20 14:59 22:59 06:59 Intake Total 1000 / 1000 Balance 1000 / 1000 Weight last 48 hrs Weight 101.151 kg Physical Exam Narrative: EXAM NARRATIVE: Awake alert oriented. No acute distress. Mood and affect are appropriate. Responses are adequate. Skin is warm and dry. Moist mucous nares Neck supple. No JVD Lungs clear to auscultation bilaterally. No wheeze or crackles Heart S1, S2, irregularly irregular Abdomen soft, nontender, bowel sounds are present Extremities no edema cyanosis or calf tenderness bilaterally Neurologic examination is nonfocal. Data : 11/20/20 20:30 11/20/20 20:30 Other Labs: Laboratory Results WBC 10.7 10^3/uL (4.0-10.0) H 11/20/20 20:30 RBC 4.39 10^6/uL (4.1-5.3) 11/20/20 20:30 Hgb 14.4 g/dL (11.5-15.3) 11/20/20 20:30 Hct 43.2 % (37.0-47.0) 11/20/20 20:30 MCV 98.4 fL (81-99) 11/20/20 20:30 MCH 32.8 pg (28.0-34.0) 11/20/20 20:30 MCHC 33.3 g/dL (30.0-36.0) 11/20/20 20:30 RDW 13.2 % (12.1-15.1) 11/20/20 20:30 Plt Count 259 10^3/cmm (130-400) 11/20/20 20:30 MPV 10.0 fL (7.4-10.4) 11/20/20 20:30 Neut % (Auto) 57.7 % 11/20/20 20:30 Lymph % (Auto) 30.7 % 11/20/20 20:30 Early % (Auto) 8.1 % 11/20/20 20: Eos % (Auto) 2.7 % 11/20/20 20: Baso % (Auto) 0.5 % 11/20/20 20: Neut # (Auto) 6.16 10^3/uL (1.8-7.7) 11/20/20 20: Lymph # (Auto) 3.3 10^3/uL (0.8-4.8) 11/20/20 20: Early # (Auto) 0.9 10^3/uL (0.2-0.9) 11/20/20 20: Eos # (Auto) 0.3 10^3/uL (0.0-0.8) 11/20/20 20: Baso # (Auto) 0.1 10^3/uL (0.0-0.1) 11/20/20 20: Nucleated RBC % (auto) 0 % 11/20/20 20: Nucleated RBCs # 0.0 /100WBC 11/20/20 20:30 D-Dimer 0.38 ug/mIFEU (0-0.59) 11/20/20 20:30 Sodium 141 mmol/L (136-145) 11/20/20 20: Potassium 3.8 mmol/L (3.5-5.1) 11/20/20 20: Chloride 106 mmol/L (98-107) 11/20/20 20: Carbon Dioxide 26 mmol/L (22-29) 11/20/20 20: Anion Gap 12.8 (5-19) 11/20/20 20:30 BUN 23 mg/dL (8-23) 11/20/20 20:30 Creatinine 0.7 mg/dL (0.5-0.9) 11/20/20 20: GFR Calculation 84.0 mL/min (90-130) L 11/20/20 20:30 Glucose 138 mg/dL (65-115) H 11/20/20 20:30 Calculated Osmolality 298 mOsm/kg (285-295) H 11/20/20 20: Calcium 8.9 mg/dL (8.5-10.5) 11/20/20 20:30 Total Bilirubin 0.3 mg/dL (0.15-1.2) 11/20/20 20: AST 20 U/L (0-32) 11/20/20 20:30 ALT 22 U/L (0-33) 11/20/20 20:30 Alkaline Phosphatase 85 IU/L (35-105) 11/20/20 20: Creatine Kinase 95 U/L (26-192) 11/20/20 20: Troponin T Baseline 10 ng/L (0-10) 11/20/20 20: Troponin T 120 Minute 9.24 ng/L (0-10) 11/20/20 22:36 Delta Troponin T -0.76 ABS# (0-10) L 11/20/20 22:36 NT-Pro-B Natriuret Pep 116 pg/mL (0-125) 11/20/20 20: Total Protein 6.0 g/dL (6.6-8.7) L 11/20/20 20: Albumin 4.1 g/dL (3.5-5.2) 11/20/20 20: Globulin 1.9 g/dL (1.3-4.6) 11/20/20 20:30 Urine Color Yellow (Yellow) 11/20/20 20:45 Urine Appearance Clear (CLEAR) 11/20/20 20:45 Urine pH 5 (5-7) 11/20/20 20:45 Ur Specific [place] 1.015 (1.005-1.030) 11/20/20 20:45 Urine Protein Neg (Negative) 11/20/20 20:45 Urine Glucose (UA) Norm (Normal) 11/20/20 20:45 Urine Ketones Negative (Negative) 11/20/20 20:45 Urine Blood Neg (Negative) 11/20/20 20:45 Urine Nitrate Negative (Negative) 11/20/20 20:45 Urine Bilirubin Neg (Negative) 11/20/20 20:45 Urine Urobilinogen Norm mg/dL (Negative) 11/20/20 20:45 Ur Leukocyte Esterase 1+ (Negative) H 11/20/20 20:45 Urine RBC 0-4 /hpf (0-2) H 11/20/20 20:45 Urine WBC 0-4 /hpf (0-5) H 11/20/20 20:45 Ur Squamous Epith Cells Rare /hpf (0-5) 11/20/20 20:45 Amorphous Sediment Not Reportable 11/20/20 20:45 Urine Bacteria Trace /hpf (NONE) 11/20/20 20:45 A&P Additional A&P Information 65-year-old female with past medical history of atrial flutter and fibrillation, possible ischemic heart disease who presents with complaints of palpitations and is found to have A. fib with RVR. Tachycardia improved with IV fluids. Currently the patient is being initiated on amiodarone protocol. Cardiology is called. A. fib with RVR. We will continue amiodarone drip after the bolus. Will wait for additional recommendations from the cardiology. She has recent history of bradycardia induced by beta-blockers. We will check her TSH. DVT prophylaxis. Lovenox. CODE STATUS. She wants to be full code. The plan of care was discussed with the patient and the family member. They verbalized understanding and agreement. Attestations Medical Necessity Statement*: Based on my assessment of her current condition and presenting findings I expect that the patient will spend more than 3 days in the hospital. Coding Level of Care Code Acute Sonography Technologist for Dianelys Fisher
[2020-11-21] VITALS (22 sets, daily range): BP systolic 107–142; BP diastolic 59–81; PULSE 54–101; RESP 15–24; TEMP 36.4–36.7; O2SAT 91–99
[2020-11-21] MEDS: enoxaparin 40 mg/0.4 mL Syringe SUBCUT (00:51)
--- NOTE | 2020-11-21 02:00 | ECG_ITS ---
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 Measurements Intervals [place] Rate: 62 P: 59 AL: 154 QRS: 68 QRSD: 95 T: 42 QT: 438 QTc: 445 Interpretive Statements SINUS RHYTHM Compared to ECG 11/20/2020 23:34:31 Atrial fibrillation no longer present Electronically Signed On 11-22-2020 5:27:19 CDT by Renetta Petty M.D. [id number]
[2020-11-21] MEDS: sodium chloride 0.9% 1,000 ML 75 ML IV (02:56)
[2020-11-21 02:59] LABS: Troponin 5 6HR 11.56 ng/L (0-10); Troponin 5 6HR Delta 1.56 ng/L (0-12)
[2020-11-21 03:06] LABS: Anion Gap 11.5 (5-19); Blood Urea Nitrogen 19 mg/dL (8-23); Calcium 8.1 mg/dL (8.5-10.5); Carbon Dioxide 26 mmol/L (22-29); Chloride 107 mmol/L (98-107); Glomerular Filtration Rate 123.8 mL/min (90-130); Glucose 114 mg/dL (65-115); Magnesium 1.7 mg/dL (1.7-2.3); Osmolality Calculated 295 mOsm/kg (285-295); Potassium 3.5 mmol/L (3.5-5.1); Sodium 141 mmol/L (136-145); Thyroid Stimulating Hormone 1.26 uIU/mL (0.27-4.20)
--- NOTE | 2020-11-21 03:06 | PC.NURSE ---
Report received from ED. Pt is A/O x4. Patient does not complain of pain or any other needs at this time. Amiodarone drip running at 1mg/min until 5 am. Currently NSR, rate 55-65. Dr. Heath informed. Received VORB to continue Amiodarone.
--- NOTE | 2020-11-21 09:00 | PM.CONSULT ---
Providers/Reason For Consult Consulting Physican/Specialty*: Dr. Petty, Cardiology Reason for Consult*: Symptomatic Atrial fibrillation Attending Physician: Yousif Lakhani MD Primary Care Provider: Malcolm Somers MD History of Present Illness History of Present Illness Nathan Barraza is a 65 year old female with PMHx of SVT for about 30 years ago, hypertension, fatigue, h/o trigeminal neuralgia, high cholesterol, periphearl neuropathy,lichen sclerosis and gastric ulcers severe years back. She was previously on a beta-piper and was taken off this medication as she had no recurrent SVT episodes.She was experiencing dizziness and low blood pressure and hence was placed on bus driver/monitor by Dr. Sanchez. She had a prolonged episode of palpitation on the october for which she was seen in the emergency room. The EKG performed at that time revealed atrial flutter with rapid ventricular rate. She was given 5 mg of IV Lopressor and she converted to sinus rhythm in the emergency room. Subsequently she was discharged from the emergency room with a metoprolol 50 mg p.o. twice daily. According the patient, she got extremely fatigued with the 50 mg dose of metoprolol. For that reason, the dose was cut back to 25 mg p.o. twice daily and then 2 days back to 12.5 mg twice a day. Her myocardial perfusion imaging revealed an area of inconsistent reversible defect in the left ventricular apex. The event monitor was completed last week and was reviewed and there is no recurrent episode since 11/02. Full report pending. She has gained around 42 pounds over the last 1 year Patient has a strong family history for premature atherosclerotic heart disease. One of her brothers had a myocardial infarction at the age of 38. Another brother had open heart surgery at age of 42. Father had open heart surgeries in his 40s and at the age of 55. Around 7 pm she felt palpitations and SOB and presented to ER for further evaluation. She was in atrial flutter with RVR and received fluid. She was started on amiodarone gtt and converted to NSR/SB. She feels well this morning. Review of Systems General: Reports: 10 or more systems reviewed and unremarkable except in HPI and below Const: Reports: change in weight and snoring; Denies: fever(s) or chills Eyes: Denies: blurry vision or eye redness ENMT: Denies: nasal congestion or epistaxis Card: Reports: palpitations, irregular heart rhythm and dyspnea on exertion; Denies: chest pain, edema or swelling of feet/ankles Resp: Denies: non-productive cough, wheezing or hemoptysis GI: Denies: abdominal pain, hematochezia, melena or mucus in stool : Denies: dysuria or hematuria Musc: Denies: extremity pain or extremity swelling Skin/Breast: Denies: rash Neuro: Denies: frequent falls, dizziness or Slurred speech present Psych: Reports: anxiety; Denies: depression Endo: Denies: tired all the time Richie/Lymph: Denies: easy bruising or easy bleeding Meds/Allergies Home Medications and Allergies Home Medications Medication Instructions Recorded Confirmed Last Taken Type clobetasol 0.05 % topical ointment 1 applic TOPICAL BID 14 Days #45 gm 12/26/19 11/21/20 11/20/20 Rx omeprazole 20 mg capsule,delayed 20 mg PO DAILY 12/26/19 11/21/20 11/20/20 08:00 History release tramadol 50 mg tablet 50 mg PO DAILY 12/26/19 11/21/20 11/20/20 12:00 History alprazolam 0.5 mg tablet 0.5 mg PO BID PRN tab 11/18/20 11/21/20 11/20/20 08:00 History cholecalciferol (vitamin D3) 25 50 mcg PO DAILY cap 11/18/20 11/21/20 11/20/20 08:00 History mcg (1,000 unit) capsule methocarbamol 500 mg tablet 500 mg PO BID tab 11/18/20 11/21/20 10/22/20 History metoprolol tartrate 25 mg tablet 12.5 mg PO BID tab 11/18/20 11/21/20 11/20/20 21:00 History biotin 10,000 mcg PO DAILY 11/21/20 11/21/20 11/20/20 08:00 History meloxicam 15 mg PO DAILY 11/21/20 11/21/20 11/20/20 08:00 History multivitamin 1 tab PO DAILY 11/21/20 11/21/20 11/20/20 08:00 History pregabalin [Lyrica] 50 mg PO BEDTIME 04/11/21/20 11/19/20 21:00 History vit [id number] 1 tab PO DAILY 11/21/20 11/21/20 11/20/20 08:00 History [Bioflex] Allergies Allergy/AdvReac Type Severity Reaction Status Date / Time ezetimibe [From Zetia] Allergy Severe unknown Verified 11/18/20 08:27 red yeast rice Allergy Severe unknown Verified 11/18/20 08:27 [id number]-Fqh-Xth Reductase Allergy Severe unknown Verified 11/18/20 08:27 Inhibitor escitalopram [From Lexapro] Allergy Intermediate unknown Verified 11/18/20 08:27 gabapentin Allergy Intermediate unknown Verified 11/18/20 08:27 sulfamethoxazole Allergy Intermediate unknown Verified 11/18/20 08:27 [From Bactrim] trimethoprim [From Bactrim] Allergy Intermediate unknown Verified 11/18/20 08:27 codeine Allergy Unknown Verified 11/18/20 08:27 Penicillins Allergy Unknown Verified 11/18/20 08:27 prochlorperazine Allergy Unknown Verified 11/18/20 08:27 [From Compazine] simvastatin Allergy unknown Verified 11/18/20 08:27 Sulfa (Sulfonamide Allergy Unknown Verified 11/18/20 08:27 Antibiotics) verapamil Allergy unknown Verified 11/18/20 08:27 Current Medications Current Medications Generic Name Dose Route Start Last Admin Trade Name Freq PRN Reason Stop Dose Admin Enoxaparin Sodium 40 mg 11/20/20 23:15 11/21/20 00:51 Enoxaparin 40 Mg/0.4 Ml Syringe SUBCUT 40 mg Q24H JACK Administration Amiodarone HCl 900 mg/ 518 mls @ 0 mls/hr 11/20/20 22:30 11/21/20 04:57 Dextrose/ IV Miscellaneous IV 0.5 mg/min Supplies .Q0M JACK 17.3 mls/hr Titration Protocol Per Protocol Sodium Chloride 1,000 mls @ 75 mls/hr 11/20/20 23:15 11/21/20 02:56 Sodium Chloride 0.9% IV 75 mls/hr .[id number] JACK Administration PFSH Acute PFSH: Medical History Anxiety Chronic GERD DVT (deep venous thrombosis) Dyspnea on exertion Endometriosis Fatigue Gastric cardia ulcer Hypercholesteremia Lichen sclerosus et atrophicus Palpitations Spinal stenosis SVT (supraventricular tachycardia) Trigeminal neuralgia Weakness Surgical History 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 Dx with endometriosis History of cholecystectomy (~1996) History of lumbar fusion (08/18/16) History of lung surgery (~2004) Family History Mother Cancer Sister Cancer Schizophrenia Father Stroke CAD (coronary artery disease) Brother CAD (coronary artery disease) Bleeding disorder Clotting disorder Brother CAD (coronary artery disease) Grandmother Stroke Denies family history of Diabetes Dementia Chronic kidney disease (CKD) Suicide Anesthesia complication Lung disease Social History Smoking and tobacco status: former smoker Quit status (tobacco): has quit using tobacco Year quit tobacco: 1989 Alcohol intake: current Vitals/I&O/Wt Last Vital Signs Temp 97.6 F 11/21/20 07:29 Pulse 64 11/21/20 07:29 Resp 17 11/21/20 07:29 BP 133/73 11/21/20 07:29 Pulse Ox 98 11/21/20 07:29 11/20/20 11/21/20 11/21/20 22:59 06:59 14:59 Intake Total 1000 / 1000 207.575 / 1207.575 Balance 1000 / 1000 207.575 / 1207.575 Weight last 48 hrs Weight 223 lb Physical Exam Narrative: EXAM NARRATIVE: Gen: obese white woman sitting in NAD HEENT: PERRL, EOMI, No JVD Chest: No scar or reproducible chest pain CVS: S1, S2 regular; No murmur or gallop RS: CTAB/L, No wheezing or rales PA: soft, NTND, BS+ EXECUTIVE RECRUITER: AAOx 3, No FND Skin: No rash or lesions Psych: Normal mood and affect A&P Assessment and plan (1) Atrial flutter by electrocardiogram: Paroxysmal A flutter: [id number]= 2/, 1 for age and 1 for female sex -start on Flecainide 50 mg twice a day -Possibly add low dose metoprolol if BP and HR allows. -f/u on echo; Normal TSH. -Possible discharge tomorrow morning if she remain in SR. -A flutter/fib ablation was discussed in detail. She would like to be referred to Dr. Bernabe Schrader at [facility] in -I will plan for the referral as outpatient from our office. Status: Acute (2) Atrial fibrillation with rapid ventricular response: Status: Acute (3) SVT (supraventricular tachycardia): Status: Acute Additional A&P Information Obesity : advised on weight loss Anxiety Family h/o CAD Suspect sleep apnea based on symptoms : plan for home sleep study as outpatient. Thank you for allowing me to participate in patient' care. Please feel free to call with questions or concerns. Consult Attestations Time Spent in Patient Care: Greater than 35 minutes (>than 50% of time spent in counselling and/or direct pt care on unit). Coding Level of Care Code Acute Film Processing Shift Supervisor for Dianelys Fisher Diagnoses Atrial flutter by electrocardiogram I48.92 Atrial fibrillation with rapid ventricular response I48.91 SVT (supraventricular tachycardia) I47.1
--- NOTE | 2020-11-21 09:40 | USCV_ITS ---
Nathan Barraza Age: 65 Gender: F : 1955 Exam Date: 11/21/2020 14:47 Ordering Phys: Renetta Petty MD Technologist: Charisma Gauthier Exam Location: [facility] [place] Indication: AFIB BP: / HR: Rhythm: Sinus Technical Quality: Adequate MEASUREMENTS (Male / Female) Normal Values 2D ECHO LV Diastolic Diameter PLAX 3.3 cm 4.2 - 5.9 / 3.9 - 5.3 cm LV Systolic Diameter PLAX 2.4 cm IVS Diastolic Thickness 1.2 cm 0.6 - 1.0 / 0.6 - 0.9 cm IVS Systolic Thickness 1.1 cm LVPW Diastolic Thickness 2.0 cm 0.6 - 1.0 / 0.6 - 0.9 cm LVPW Systolic Thickness 1.9 cm LVOT Diameter 2.0 cm LV Ejection Fraction 2D Teich 55.4 % LV Ejection Fraction MOD 2C 66.0 % LV Ejection Fraction 2C AL 67.3 % LA Diameter 2.9 cm LA Width 2.7 cm LA Height 4.6 cm RA Width 2.8 cm RA Height 3.6 cm Aorta at Sinotubular Diameter 1.8 cm M-MODE LV Diastolic Diameter MM 4.6 cm 4.2 - 5.9 / 3.9 - 5.3 cm LV Systolic Diameter MM 2.7 cm LV Ejection Fraction MM Teich 72.9 % IVS Diastolic Thickness MM 0.8 cm 0.6 - 1.0 / 0.6 - 0.9 cm IVS Systolic Thickness MM 1.2 cm LVPW Diastolic Thickness MM 0.6 cm 0.6 - 1.0 / 0.6 - 0.9 cm LVPW Systolic Thickness MM 1.3 cm Aortic Annulus Diameter 2.4 cm LA Ao Ratio MM 1.3 MV E Point Septal Separation 0.6 cm DOPPLER AV Peak Velocity 169.0 cm/s LVOT Peak Velocity 120.7 cm/s AV Area Cont Eq vti 2.2 cm squared AV Area Cont Eq pk 2.3 cm squared MV Area PHT 3.1 cm squared Mitral E to A Ratio 1.0 MV E' Velocity 53.0 cm/s Mitral E to MV E' Ratio 7.6 Mitral E to LV E' Lateral Ratio 7.4 Mitral E to LV E' Septal Ratio 7.9 TR Peak Velocity 192.5 cm/s TR Peak Gradient 14.8 mmHg TV Peak E Velocity 62.0 cm/s Right Atrial Pressure 3.0 mmHg Pulmonary Artery Systolic Pressu 17.8 mmHg PV Peak Velocity 101.0 cm/s RV Acceleration Time 0.2 s RV Ejection Time 0.4 s RV AcT/ET 0.5 FINDINGS Left Ventricle Normal left ventricular size, systolic function and wall thickness, with no regional wall motion abnormalities. Left ventricular ejection fraction is estimated at 65-70 %. Normal diastolic function. Right Ventricle Normal right ventricular size and systolic function. Right ventricular systolic pressure 17.8 mmHg. Right Atrium Normal right atrial size. Left Atrium Normal left atrial size. Mitral Valve Structurally normal mitral valve. No mitral valve stenosis. Trace mitral valve regurgitation. Aortic Valve Mildly thickened trileaflet aortic valve. No aortic valve stenosis. No aortic valve regurgitation. Tricuspid Valve Structurally normal tricuspid valve. No tricuspid valve stenosis. Trace tricuspid valve regurgitation. Pulmonic Valve Pulmonic valve not well visualized. No pulmonary valve stenosis. Trace pulmonary valve regurgitation. Pericardium No pericardial effusion. Aorta Normal size aortic root and proximal ascending aorta. CONCLUSIONS 1. Normal left ventricular size, systolic function and wall thickness, with no regional wall motion abnormalities. Left ventricular ejection fraction is estimated at 65-70 %. Normal diastolic function. 2. Normal right ventricular size and systolic function. 3. No significant valvular abnormality. 4. Normal pulmonary artery pressure. 5. No prior similar studies to compare. Renetta Petty MD (Electronically Signed) Final Date: 21 November 2020 16:03 S
--- NOTE | 2020-11-21 09:43 | PC.NURSE ---
Amiodarone on hold Dr. Petty discuss to stop amiodarone drip.
[2020-11-21] MEDS: TRAMadol 50 mg Tablet PO (10:50)
[2020-11-21] MEDS: pantoprazole DR 40 mg Tablet PO (10:51)
[2020-11-21] MEDS: pregabalin 50 mg Capsule PO ×2 (10:51→20:42)
--- NOTE | 2020-11-21 11:11 | PM.PN ---
Subjective Subjective: Interval history: Admitted overnight. Patient got an amiodarone bolus in the ER. On examination patient has converted back to normal sinus rhythm. Avenue infusion not started. Examination patient walking around without any difficulty breathing, headache, dizziness. Currently in sinus rhythm 70 bpm. Vitals/I&O/Wt Last Vital Signs Temp 97.6 F 11/21/20 07:29 Pulse 64 11/21/20 07:29 Resp 17 11/21/20 07:29 BP 133/73 11/21/20 07:29 Pulse Ox 98 11/21/20 07:29 11/20/20 11/21/20 11/21/20 22:59 06:59 14:59 Intake Total 1000 / 1000 207.575 / 1207.575 80.157 / 80.157 Balance 1000 / 1000 207.575 / 1207.575 80.157 / 80.157 Weight last 48 hrs Weight 101.151 kg Physical Exam Narrative: EXAM NARRATIVE: Gen: obese white woman sitting in NAD HEENT: PERRL, EOMI, No JVD Chest: No scar or reproducible chest pain CVS: S1, S2 regular; No murmur or gallop RS: CTAB/L, No wheezing or rales PA: soft, NTND, BS+ SUPERVISOR PARACHUTE MANUFACTURING: AAOx 3, No FND Skin: No rash or lesions Psych: Normal mood and affect Data : 11/20/20 20:30 11/21/20 02:22 A&P Assessment and plan (1) Palpitations: Status: Acute (2) Atrial fibrillation with rapid ventricular response: Status: Acute (3) Atrial flutter by electrocardiogram: Status: Acute (4) Obesity: Status: Acute Additional A&P Information Atrial fibrillation and flutter with rapid ventricular response: Converted to sinus rhythm on examination. Cardiology recommendations appreciated. Echocardiogram ordered results awaited. TSH normal. Started on flecainide 50 mg twice a day. Derrek vas score 2/9: Start patient on aspirin 81 mg daily. Patient is already had a talk with Dr. Kauffman who is outpatient heat engineering teacher regarding no anticoagulation for now. Patient requesting referral to see custodial services manager in [place]. Continue other chronic medication including methocarbamol, alprazolam as needed, pregabalin, tramadol as needed. Full code. Cardiac diet. Lovenox for DVT prophylaxis. Attestations Medical Necessity Statement*: Patient referred hospitalization for management of atrial fibrillation flutter while starting on new antiarrhythmic medications. Time Spent in Patient Care: Greater than 35 minutes (>than 50% of time spent in counselling and/or direct pt care on unit). Coding Level of Care Code Acute Collar Padder Blindstitch for Gabyg Fwd Diagnoses Palpitations R00.2 Atrial fibrillation with rapid ventricular response I48.91 Atrial flutter by electrocardiogram I48.92 Obesity E66.9
[2020-11-21] MEDS: flecainide 100 mg Tablet 50 MG PO ×2 (12:05→20:40)
[2020-11-21] MEDS: aspirin 81 mg EC Tablet PO (12:08)
--- NOTE | 2020-11-21 12:26 | PC.NURSE ---
to [facility] for hida scan.
--- NOTE | 2020-11-21 13:08 | PC.CHAP ---
Pastoral Care Encounter/Spiritual Assessment Type of Contact [] Declined credit control manager visit [] Patient/Family/Request visit [] Outpatient visit [] Follow-up visit [] Physician referral [] Code/Alert [xx] Routine visit [] Staff referral [] Actively dying [] Patient sleeping [] Family support [] [] Out of room [] Palliative care [] [] Receiving care in room [] Pre-surgical visit [] Trauma [] Long length of stay [] ICU visit [] Other: Relational/Emotional Strength [xx] Patient feels connected with others/family/visitors/staff [] Distress [] Loneliness/isolation [] Abandonment Spirituality of Patient [xx] Person of Sophia [xx] Attends Church of their Sophia [xx] Believes in Prayer [xx] Reads Bible or Protestant materials [] There are Spiritual issues to be addressed Equities Analyst Interventions [xx] Prayer [xx] Active listening [xx] Non-anxious presence [] Spiritual/emotional support [] Crisis/trauma care [] Spiritual counseling [] Bereavement support [] Provided bereavement packet [] Provided Bible/devotional materials [] Provided toy/stuffed animal, coloring book to patient or family member [] Provided Communion [] Anointing/[place] [] Salvation [xx] Completed spiritual assessment [] Other: Impact on Illness or Injury [] Angry [] Fearful [] Anxious [] Often cries [] Exhaustion [] Unable to work [] Unable to attend nondenominational [] Unable to walk/stand [] Unable to read [] Unable to drive [] Unable to eat/drink [] Unable to sleep [] Unable to be with family [] Patient intubated [] Other: Summary Patient's spouse, Jeison, was present. First thing, patient requested credit control manager find some blank paper so she could make notes before memory loss. Equities Analyst complied with copy paper from nurses' station. Once patient had written down her notes, she requested prayer for self and spouse. Equities Analyst also had a short visit with both people. Time spent with patient 7 minutes
[2020-11-21] MEDS: ALPRAZolam 0.5 mg Tablet PO (20:41)
[2020-11-22] VITALS (7 sets, daily range): BP systolic 117–140; BP diastolic 67–80; PULSE 59–82; RESP 13–18; TEMP 36.4–37.2; O2SAT 92–98
[2020-11-22] MEDS: enoxaparin 40 mg/0.4 mL Syringe SUBCUT (02:22)
[2020-11-22] MEDS: acetaminophen 325 mg Tablet 650 MG PO (04:22)
[2020-11-22] MEDS: pantoprazole DR 40 mg Tablet PO (08:31)
[2020-11-22] MEDS: aspirin 81 mg EC Tablet PO (08:31)
--- NOTE | 2020-11-22 09:31 | ECG_ITS ---
[facility] Test Date: 2020-11-22 Pat Name: Nathan Barraza Department: Room: 104 Gender: Female Prehemmer: : 1955 Requested By: Yousif Lakhani Order Number: [id number] Reading MD: IRINA GORDON Measurements Intervals Bivalve Rate: 67 P: 52 WV: 138 QRS: 53 QRSD: 85 T: 36 QT: 401 QTc: 426 Interpretive Statements SINUS RHYTHM Compared to ECG 11/21/2020 02:17:18 No significant changes Electronically Signed On 11-22-2020 19:19:41 CDT by IRINA GORDON [email or web address]
--- NOTE | 2020-11-22 10:22 | P.DS_ITS ---
Discharge Providers Date of Admission: 11/21/20 00:46 Date of Discharge: November 22, 2020 Attending Provider at Admission: All Heath Attending Provider at Discharge: Yousif Lakhani MD Consults: Cardiology: Dr. Petty Primary Care Provider: Malcolm Somers MD Diagnoses at Discharge Discharge Diagnosis (1) Palpitations: Status: Acute (2) Atrial fibrillation with rapid ventricular response: Status: Acute (3) Atrial flutter by electrocardiogram: Status: Acute (4) Obesity: Status: Acute Reason for Visit Reason for Visit: RACING HEART, LIGHT HEADED Hospital Course Hospital Course K Victoria Barraza is a 65 year old female with PMHx of SVT for about 30 years ago, hypertension, fatigue, h/o trigeminal neuralgia, high cholesterol, periphearl neuropathy,lichen sclerosis and gastric ulcers severe years back. She was previously on a beta-piper and was taken off this medication as she had no recurrent SVT episodes.She was experiencing dizziness and low blood pressure and hence was placed on monitoring manager by Dr. Sanchez. She had a prolonged episode of palpitation on the october for which she was seen in the emergency room. The EKG performed at that time revealed atrial flutter with rapid ventricular rate. She was given 5 mg of IV Lopressor and she converted to sinus rhythm in the emergency room. Subsequently she was discharged from the emergency room with a metoprolol 50 mg p.o. twice daily. According the patient, she got extremely fatigued with the 50 mg dose of metoprolol. For that reason, the dose was cut back to 25 mg p.o. twice daily and then 2 days back to 12.5 mg twice a day. Her myocardial perfusion imaging revealed an area of inconsistent reversible defect in the left ventricular apex. The event monitor was completed last week and was reviewed and there is no recurrent episode since 11/02. Full report pending. She has gained around 42 pounds over the last 1 year Patient has a strong family history for premature atherosclerotic heart disease. One of her brothers had a myocardial infarction at the age of 38. Another brother had open heart surgery at age of 42. Father had open heart surgeries in his 40s and at the age of 55. Around 7 pm she felt palpitations and SOB and presented to ER for further evaluation. She was in atrial flutter with RVR and received fluid. She was started on amiodarone gtt and converted to NSR/SB. She was admitted under observation in hospital at cardiac stepdown unit. She was started on new antiarrhythmic with flecainide. Overnight she remained normal sinus rhythm both at rest and on ambulation. Repeat EKG was done next morning to monitor for QTC and QRS intervals. Return provider within a week for possible sleep study as an outpatient and with Dr. Kauffman in 2 weeks. Physical Exam Narrative: EXAM NARRATIVE: Gen: obese white woman sitting in NAD HEENT: PERRL, EOMI, No JVD Chest: No scar or reproducible chest pain CVS: S1, S2 regular; No murmur or gallop RS: CTAB/L, No wheezing or rales PA: soft, NTND, BS+ NET SORTER: AAOx 3, No FND Skin: No rash or lesions Psych: Normal mood and affect Discharge Data Data Completed and Pending: Completed Studies During Hospitalization Category Date Time Status XR chest 1V jodi ble [id number] Stat Exams 11/20/20 20:00 Completed CV echo complete* [id number] Routine Ultrasound 11/21/20 09:40 Completed Addt'l Data from Hospital Stay: Laboratory Results WBC 10.7 10^3/uL (4.0 -10.0) H 11/20/20 20:30 RBC 4.39 10^6/uL (4.1 -5.3) 11/20/20 20:30 Hgb 14.4 g/dL (11.5-1 5.3) 11/20/20 20:30 Hct 43.2 % (37.0-47.0 ) 11/20/20 20:30 MCV 98.4 fL (81-99) 11/20/20 20:30 MCH 32.8 pg (28.0-34. 0) 11/20/20 20:30 MCHC 33.3 g/dL (30.0-3 6.0) 11/20/20 20:30 RDW 13.2 % (12.1-15.1 ) 11/20/20 20:30 Plt Count 259 10^3/cmm (130 -400) 11/20/20 20:30 MPV 10.0 fL (7.4-10.4 ) 11/20/20 20:30 Neut % (Auto) 57.7 % 11/20/20 20:30 Lymph % (Auto) 30.7 % 11/20/20 20:30 [place] % (Auto) 8.1 % 11/20/20 20:30 Eos % (Auto) 2.7 % 11/20/20 20:30 Baso % (Auto) 0.5 % 11/20/20 20:30 Neut # (Auto) 6.16 10^3/uL (1.8 -7.7) 11/20/20 20:30 Lymph # (Auto) 3.3 10^3/uL (0.8- 4.8) 11/20/20 20:30 [place] # (Auto) 0.9 10^3/uL (0.2- 0.9) 11/20/20 20:30 Eos # (Auto) 0.3 10^3/uL (0.0- 0.8) 11/20/20 20:30 Baso # (Auto) 0.1 10^3/uL (0.0- 0.1) 11/20/20 20:30 Nucleated RBC % (a uto) 0 % 11/20/20 20: Nucleated RBCs # 0.0 /100WBC 11/20/20 20:30 D-Dimer 0.38 ug/mIFEU (0- 0.59) 11/20/20 20:30 Sodium 141 mmol/L (136-1 45) 11/21/20 02:22 Potassium 3.5 mmol/L (3.5-5 .1) 11/21/20 02: Chloride 107 mmol/L (98-10 7) 11/21/20 02: Carbon Dioxide 26 mmol/L (22-29) 11/21/20 02:22 Anion Gap 11.5 (5-19) 11/21/20 02:22 BUN 19 mg/dL (8-23) 11/21/20 02:22 Creatinine 0.5 mg/dL (0.5-0. 9) 11/21/20 02:22 GFR Calculation 123.8 mL/min (90- 130) 11/21/20 02:22 Glucose 114 mg/dL (65-115 ) 11/21/20 02:22 Calculated Osmolal ity 295 mOsm/kg (285- 295) 11/21/20 02:22 Calcium 8.1 mg/dL (8.5-10 .5) L 11/21/20 02: Magnesium 1.7 mg/dL (1.7-2. 3) 11/21/20 02: Total Bilirubin 0.3 mg/dL (0.15-1 .2) 11/20/20 20:30 AST 20 U/L (0-32) 11/20/20 20:30 ALT 22 U/L (0-33) 11/20/20 20:30 Alkaline Phosphata se 85 IU/L (35-105) 11/20/20 20: Creatine Kinase 95 U/L (26-192) 11/20/20 20:30 Troponin T Baselin e 10 ng/L (0-10) 11/20/20 20: Troponin T 120 Min [place] 9.24 ng/L (0-10) 11/20/20 22:36 Delta Troponin T -0.76 ABS# (0-10) L 11/20/20 22:36 Troponin T Hi Sens 6Hr 11.56 ng/L (0-10) H 11/21/20 02: Troponin T Hi Sens 6Hr Delta 1.56 ng/L (0-12) 11/21/20 02: NT-Pro-B Natriuret Pep 116 pg/mL (0-125) 11/20/20 20:30 Total Protein 6.0 g/dL (6.6-8.7 ) L 11/20/20 20:30 Albumin 4.1 g/dL (3.5-5.2 ) 11/20/20 20: Globulin 1.9 g/dL (1.3-4.6 ) 11/20/20 20:30 TSH 1.26 uIU/mL (0.27 -4.20) 11/21/20 02: Urine Color Yellow (Yellow) 11/20/20 20:45 Urine Appearance Clear (CLEAR) 11/20/20 20:45 Urine pH 5 (5-7) 11/20/20 20:45 Ur Specific Gravit y 1.015 (1.005-1.0 30) 11/20/20 20:45 Urine Protein Neg (Negative) 11/20/20 20:45 Urine Glucose (UA) Norm (Normal) 11/20/20 20:45 Urine Ketones Negative (Negati ve) 11/20/20 20:45 Urine Blood Neg (Negative) 11/20/20 20:45 Urine Nitrate Negative (Negati ve) 11/20/20 20:45 Urine Bilirubin Neg (Negative) 11/20/20 20:45 Urine Urobilinogen Norm mg/dL (Negat carol) 11/20/20 20:45 Ur Leukocyte Katlyn ase 1+ (Negative) H 11/20/20 20:45 Urine RBC 0-4 /hpf (0-2) H 11/20/20 20:45 Urine WBC 0-4 /hpf (0-5) H 11/20/20 20:45 Ur Squamous Epith Cells Rare /hpf (0-5) 11/20/20 20:45 Amorphous Sediment Not Reportable 11/20/20 20:45 Urine Bacteria Trace /hpf (NONE) 11/20/20 20:45 Impressions Chest X-Ray 11/20/20 20:00 Impression: Negative chest. Echocardiogram: CONCLUSIONS 1. Normal left ventricular size, systolic function and wall thickness, with no regional wall motion abnormalities. Left ventricular ejection fraction is estimated at 65-70 %. Normal diastolic function. 2. Normal right ventricular size and systolic function. 3. No significant valvular abnormality. 4. Normal pulmonary artery pressure. 5. No prior similar studies to compare. Renetta Petty MD (Electronically Signed) Final Date: 21 November 2020 16:03 Vitals: Last Vital Signs Temp 97.5 F L 11/22/20 08:00 Pulse 69 11/22/20 10:15 Resp 13 11/22/20 08:00 BP 117/67 11/22/20 08:00 Pulse Ox 97 11/22/20 10:15 Discharge Plan Discharge Patient Disposition: Home Condition: Stable Prescriptions: New flecainide 100 mg Tablet 50 mg PO Q12H Qty: 60 RF: 0 aspirin 325 mg tablet,delayed release (DR/EC) 325 mg PO DAILY Qty: 30 RF: 0 Continued omeprazole 20 mg capsule,delayed release(DR/EC) 20 mg PO DAILY RF: 0 tramadol 50 mg tablet 50 mg PO DAILY RF: 0 clobetasol 0.05 % ointment 1 applic TOPICAL BID 14 Days Qty: 45 RF: 2 alprazolam [Xanax] 0.5 mg tablet 0.5 mg PO BID PRN (Reason: Anxiety) RF: 0 methocarbamol 500 mg tablet 500 mg PO BID RF: 0 cholecalciferol (vitamin D3) [Vitamin D3] 25 mcg (1,000 unit) capsule 50 mcg PO DAILY RF: 0 biotin 10,000 mcg Capsule 10,000 mcg PO DAILY RF: 0 Lyrica 50 mg Capsule 50 mg PO BEDTIME RF: 0 Bioflex [id number] mg Tablet 1 tab PO DAILY RF: 0 meloxicam 15 mg Tablet 15 mg PO DAILY RF: 0 multivitamin Tablet 1 tab PO DAILY RF: 0 Discontinued metoprolol tartrate 25 mg tablet 12.5 mg PO BID RF: 0 Discharge Orders: Discharge Order (Routine); Ordered 11/22/20 Ordered By: Yousif Lakhani Other Ambulatory Orders: Sleep Study W Sleep Stage (Routine) Timeframe: 1 Week Location: None Selected Ordered By: Yousif Lakhani Referrals: Lacy Kauffman MD [Physician] - 2 weeks Malcolm Somers MD [Primary Care Provider] - 1 week Discharge Diet: Cardiac Discharge Activity: Resume usual activity Patient Instructions: Opioid Safety Activity Restrictions/Additional Instructions: Please take flecainide as discussed. If you have palpitations again check your heart rate more than 120 you have been take 12.5 mg of metoprolol after that if your heart rate does not settle please come to the ER. Please follow-up with Dr. Kauffman in 2 weeks. Please follow-up with Dr. Somers in a week for possible sleep study as an outpatient. Discharge Attestations Time Spent in Discharge Care*: greater than 30 min Specific Discharge Activities: educating patient, educating and/or supporting family/caregiver, discussing with pcp/other providers, discussing with casework specialist/social workers/dc planners and evaluating patient/reviewing data Status at Discharge: Cognitive status at discharge: cognitively intact , Behavioral status at discharge: cooperative , Functional status at discharge: independent ambulation Overall status at discharge: patient is back to baseline Quality Metrics Clinical Quality Measures During this hospital stay, did patient experience: None Coding Level of Care Code Acute Chg FW DC note Diagnoses Palpitations R00.2 Atrial fibrillation with rapid ventricular response I48.91 Atrial flutter by electrocardiogram I48.92 Obesity E66.9
--- NOTE | 2020-11-22 10:28 | P.PN_ITS ---
Subjective Subjective: Interval history: Remains in sinus rhythm after flecainide. Twelve-lead EKG this morning performed did not show any prolongation of VA, QRS and QT interval. Vitals/I&O/Wt Last Vital Signs Temp 97.5 F L 11/22/20 08:00 Pulse 69 11/22/20 10:15 Resp 13 11/22/20 08:00 BP 117/67 11/22/20 08:00 Pulse Ox 97 11/22/20 10:15 11/21/20 11/22/20 11/22/20 22:59 06:59 14:59 Intake Total 240 / 680.157 240 / 240 Balance 240 / 680.157 240 / 240 Weight last 48 hrs Weight 223 lb Physical Exam Narrative: EXAM NARRATIVE: GENERAL: Patient is alert, awake and oriented x3. NECK: No jugular vein distension. HEENT: No cyanosis. No icterus. No pallor. HEART: Regular S1 and S2. No murmur, rub or gallop. LUNGS: Clear to auscultate bilaterally. ABDOMEN: Soft, nontender and nondistended. Positive bowel sounds. No guarding, rebound or tenderness. CENTRAL NERVOUS SYSTEM: Grossly nonfocal. EXTREMITIES: Lower extremities without edema bilaterally. Data : 11/20/20 20:30 11/21/20 02:22 A&P Assessment and plan (1) Atrial flutter by electrocardiogram: Patient is in sinus rhythm. Flecainide was started at 50 mg twice daily QRS complex VA interval and QT remained stable. Patient is walking around without any difficulty. [id number] score less than 2. Patient was offered anticoagulation, she declined and would like to only take full dose aspirin 325 mg. She understand the risk of stroke TIA. Discussed in detail regarding side effects of flecainide. Patient has been advised to follow-up with Dr. Kauffman. Status: Acute (2) SVT (supraventricular tachycardia): Patient remained sinus rhythm Status: Acute Additional A&P Information Obesity : advised on weight loss Anxiety Family h/o CAD Suspect sleep apnea based on symptoms : plan for home sleep study as outpatient. Thank you for allowing me to participate in patient' care. Please feel free to call with questions or concerns. Attestations Medical Necessity Statement*: Patient can be discharged home. Coding Level of Care Code Acute Director Dietetics Department for Chg Fwd History Detailed Exam Detailed Medical Decision Making Moderate Complexity Diagnoses Atrial flutter by electrocardiogram I48.92 SVT (supraventricular tachycardia) I47.1
[2020-11-22] MEDS: flecainide 100 mg Tablet 50 MG PO (11:01)
--- NOTE | 2020-11-22 12:46 | PC.NURSE ---
meds to bed they brought pt's new Rx at bedside.
[2020-11-22] MEDS: TRAMadol 50 mg Tablet PO (12:53)
[2020-11-22] MEDS: ALPRAZolam 0.5 mg Tablet PO (12:53)
--- NOTE | 2020-11-22 13:30 | PC.NURSE ---
Discharge to home w/caregiver Instructed pt to follow-up with her pcp and replenishment analyst. informed pt that she will have an outpt sleep study. 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 Discharge packet provided to pt.
== END 2020-11-22 13:15 | disposition home or self-care (01) | DRG 310 ==
LOC: ER 23:42 → CSU 11-21 00:47
PROVIDERS: Admitting Provider Internal Medicine; Emergency Provider Family Medicine; PCP Family Medicine; Visit Provider Student in an Organized Health Care Education/Training Program
DX: I48.91 Unspecified atrial fibrillation (principal); I48.92 Unspecified atrial flutter; I47.1 Supraventricular tachycardia; F41.9 Anxiety disorder, unspecified; K21.9 Gastro-esophageal reflux disease without esophagitis; M48.00 Spinal stenosis, site unspecified; E66.9 Obesity, unspecified; E78.00 Pure hypercholesterolemia, unspecified; L90.0 Lichen sclerosus et atrophicus; Z86.718 Personal history of other venous thrombosis and embolism; Z82.49 Family history of ischemic heart disease and other diseases of the circulatory system; Z87.891 Personal history of nicotine dependence; Z68.38 Body mass index [BMI] 38.0-38.9, adult; Z87.11 Personal history of peptic ulcer disease
CPT/HCPCS: 36415; 71045; 80048; 80053; 81001; 81003; 82550; 83735; 83880; 84443; 84484; 85025; 85378; 93005; 93306; 96361; 96365; 96372; 96375; 99285; J0282; J1650; J7030; J7060

== ENCOUNTER 2021-01-21 20:00 | Outpatient (CLI) | payer BC, SELFPAY | END 2021-01-21 20:01 | disposition home or self-care (01) | LOC: SLEEP 01-22 12:22 | PROVIDERS: PCP Family Medicine; Visit Provider Nurse Practitioner Family | DX: G47.10 Hypersomnia, unspecified (principal); R06.83 Snoring; R53.83 Other fatigue; G47.33 Obstructive sleep apnea (adult) (pediatric) | CPT/HCPCS: 95810 ==

== ENCOUNTER 2021-04-15 10:59 | Outpatient (CLI) | payer BC, SELFPAY ==
--- NOTE | 2021-04-15 11:09 | XR_ITS ---
WS: [id number] XR foot RT 2V [id number] REASON FOR EXAM: RT FOOT PAIN FINDINGS: Within the forefoot there is subluxation of the MIP joints, without weightbearing. There does not ronald ear to be significant arthropathy within these joints. No fracture or dislocation. Within the mid foot there is narrowing of the joint spaces with subchondral sclerosis. No erosions. N o soft tissue abnormality. No fracture or dislocation. The Lisfranc joint is not well visualized but appears intact. Joint spaces of the hindfoot are intact and relatively well-preserved. Enthesophytes from the calcane us at the Achilles tendon and plantar ligament insertion. XR/XR foot RT 2V [id number] IMPRESSION: Degenerative arthropathy with no acute abnormality identified.
--- NOTE | 2021-04-15 11:09 | XR_ITS ---
WS: [id number] XR ankle RT 2V [id number] REASON FOR EXAM: RIGHT FOOT PAIN FINDINGS: The ankle mortise is preserved but is somewhat narrowed anteriorly. Fragmented ossifications and enthesophytes adjacent to the malleolar regions are indicative of old me dial and lateral collateral ligament injuries. No fracture is identified. Massive lower right leg with subcutaneous varices identified. XR/XR ankle RT 2V [id number] IMPRESSION: Degenerative arthropathy in the ankle as above. No acute abnormality identified .
== END 2021-04-15 11:00 | disposition home or self-care (01) ==
PROVIDERS: PCP Family Medicine; Visit Provider Family Medicine
DX: M79.671 Pain in right foot (principal); M12.871 Other specific arthropathies, not elsewhere classified, right ankle and foot
CPT/HCPCS: 73600; 73620

== ENCOUNTER → 2021-06-15 08:57 | Outpatient (BNVA) | payer BC, SELFPAY | PROVIDERS: PCP Family Medicine; Visit Provider Internal Medicine Cardiovascular Disease | DX: E78.5 Hyperlipidemia, unspecified (principal) | CPT/HCPCS: 80061 ==

== ENCOUNTER 2021-07-06 08:24 | Outpatient (CLI) | payer BC, SELFPAY ==
--- NOTE | 2021-07-06 08:45 | USCV_ITS ---
Nathan Barraza Age: 66 Gender: F : 1955 Exam Date: 07/06/2021 09:15 Ordering Phys: Lacy Kauffman MD ([email or web address]) Technologist: Damian Ye Exam Location: [facility] [place] Indication: HISTORY: Diameter (cm) AP x Transverse x Length Velocity (cm/s) Waveform Prox Aorta: 2.06 x 2.08 x 53.70 Mid Aorta: 1.66 x 1.66 x 95.00 Distal Aorta: 1.23 x 1.65 x 80.20 Right Iliac Prox: 0.95 x 1.05 x 166.30 Left Iliac Prox: 0.91 x 1.15 x 188.50 Stent Prox Landing x x Aneurysmal Sac Max x x Lt Lat Sac Dim Rt Lat Sac Dim Stent Dist Landing x x Right Iliac Stent x x Left Iliac Stent x x Right Renal Art Left Renal Art FINDINGS: Normal abdominal aortic dimensions Normal proximal, iliac artery dimensions Near normal Doppler velocities CONCLUSIONS No evidence of any abdominal aortic aneurysm. No significant arterial obstruction in the proximal common iliac arteries, based on the above findings Dr Lacy Kauffman MD [facility] (Electronically Signed) Final Date: 06 July 2021 19:27 S
--- NOTE | 2021-07-06 09:30 | USCV_ITS ---
Nathan Barraza Age: 66 Gender: F : 1955 Exam Date: 07/06/2021 08:41 Ordering Phys: Lacy Kauffman MD ([email or web address]) Technologist: Damian Ye Exam Location: [facility] [place] Indication: CARDIOMYOPATHY BP: 104 / 70 HR: 62 Rhythm: Other Technical Quality: Adequate MEASUREMENTS (Male / Female) Normal Values 2D ECHO LV Diastolic Diameter PLAX 4.4 cm 4.2 - 5.9 / 3.9 - 5.3 cm LV Systolic Diameter PLAX 2.9 cm IVS Diastolic Thickness 0.8 cm 0.6 - 1.0 / 0.6 - 0.9 cm IVS Systolic Thickness 1.3 cm LVPW Diastolic Thickness 1.2 cm 0.6 - 1.0 / 0.6 - 0.9 cm LVPW Systolic Thickness 1.3 cm LVOT Diameter 2.0 cm LV Ejection Fraction 2D Teich 63.5 % LV Ejection Fraction MOD 2C 66.7 % LV Ejection Fraction 2C AL 66.1 % LA Diameter 3.0 cm LA Width 3.0 cm LA Height 4.5 cm RA Width 3.1 cm RA Height 4.2 cm Aorta at Sinotubular Diameter 2.2 cm M-MODE Aortic Annulus Diameter 2.5 cm LA Ao Ratio MM 1.2 MV E Point Septal Separation 0.8 cm FINDINGS Left Ventricle Normal left ventricular size and systolic function, EF 65 %. No regional wall motion abnormalities. Right Ventricle The right ventricle is normal in size and function. Right Atrium The right atrium is normal in size. Left Atrium The left atrium is normal in size. Mitral Valve Thickened mitral valve. Mild mitral annular calcification. Aortic Valve Thickened aortic valve. Tricuspid Valve No gross abnormalities noted Pulmonic Valve No gross abnormalities noted Pericardium Normal pericardium without effusion. Aorta Normal ascending aorta dimension. CONCLUSIONS Normal left ventricular size and systolic function, EF 65 %. No regional wall motion abnormalities. Thickened mitral valve. Mild mitral annular calcification. Thickened aortic valve. There is no pericardial effusion. There are no intracardiac masses. Compared to the previous study from 11/21/2020, there may not be a significant change Dr Lacy Kauffman MD [facility] (Electronically Signed) Final Date: 06 July 2021 19:25 S
== END 2021-07-06 08:25 | disposition home or self-care (01) ==
LOC: US 08:25
PROVIDERS: PCP Family Medicine; Visit Provider Internal Medicine Cardiovascular Disease
DX: I42.9 Cardiomyopathy, unspecified (principal); E78.5 Hyperlipidemia, unspecified; I08.0 Rheumatic disorders of both mitral and aortic valves
CPT/HCPCS: 93308; 93978

== ENCOUNTER 2021-07-16 20:55 | Emergency (ER) | payer BC, SELFPAY ==
[2021-07-16 21:09] VITALS: BP 153/78; PULSE 153; RESP 16; TEMP 36.3; O2SAT 98
--- NOTE | 2021-07-16 21:13 | XRR_ITS ---
PROCEDURE INFORMATION: Exam: XR Chest Exam date and time: 07/16/2021 9:13 PM Age: 66 years old Clinical indication: Dyspnea; Prior surgery; Surgery type: Lung in 2006 TECHNIQUE: Imaging protocol: XR of the chest. Views: 1 view. COMPARISON: CR XR chest 1V portable [id number] 11/20/2020 8:31 PM FINDINGS: Lungs: Calcified pulmonary nodule/nodules, consistent with prior granulomatous disease. Pleural spaces: Unremarkable. No pleural effusion. No pneumothorax. Heart/Mediastinum: Unremarkable. No cardiomegaly. Bones/joints: Unremarkable. XR/XR chest 1V portable [id number] IMPRESSION: No acute disease.
[2021-07-16] MEDS: metoprolol tartrate 50 mg Tablet PO (21:30)
--- NOTE | 2021-07-16 21:30 | ED_ITS ---
HPI - General Adult General: Chief complaint: Chest Pain Stated complaint: sob, A-fib Time Seen by Provider: 07/16/21 21:13 History of Present Illness: HPI narrative: Patient is a 66-year-old female with history of paroxysmal atrial fibrillation not on AC, anxiety, DVT presenting to the emergency room for evaluation of sudden onset of palpitations at 6 PM. Patient says that her heart appears to be racing decided come to the emergency room for evaluation. Patient has no complaints of lightheadedness, exertional chest pain or shortness breath, chest pain at rest, palpitation, history of thyroid issues, nausea/vomiting, diarrhea. Patient has a history a trial fibrillation in the past that responded to metoprolol. Of note, patient states that she has been going down her metoprolol dose to 12.5mg daily now. Patient denies any cough, runny nose, sore throat, diarrhea, melena/hematochezia, complaints or abdominal complaints at this time. Patient was able to look up at around 8:30 PM, patient noticed that her heart rate became atrial flutter on her iwatch. Onset: 6pm Duration:3 hrs ago Location:home Severity:moderate Review of Systems Narrative: Constitutional: No fever, no chills. HEENT: No vision changes CV: No chest pain, +palpitations PULM: no cough, no dyspnea. GI: No abdominal pain, no N/V/D. : No dysuria MSKEL: No muscle pain SKIN: No new rashes, no lesions. NEURO: No headache, no focal weakness. HEME: No visible bruises PSYCH: Normal mood PFSH ED PFSH: Medical History Anxiety Chronic GERD DVT (deep venous thrombosis) Dyspnea on exertion Endometriosis Fatigue Gastric cardia ulcer Hypercholesteremia Hypersomnolence Lichen sclerosus et atrophicus Malaise Palpitations Spinal stenosis SVT (supraventricular tachycardia) Trigeminal neuralgia Weakness Surgical History 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 Dx with endometriosis History of cholecystectomy (~1996) History of lumbar fusion (08/18/16) History of lung surgery (~2004) Family History Mother Cancer Sister Cancer Schizophrenia Father Stroke CAD (coronary artery disease) Brother CAD (coronary artery disease) Bleeding disorder Clotting disorder Brother CAD (coronary artery disease) Grandmother Stroke Denies family history of Diabetes Dementia Chronic kidney disease (CKD) Suicide Anesthesia complication Lung disease Social History Quit status (tobacco): has quit using tobacco Year quit tobacco: 1989 Alcohol intake: current Physical Exam Narrative: EXAM NARRATIVE: Head: Atraumatic Eyes: PERRL, conjunctiva without injection ENT: Mucous membrane moist NECK: Supple, ROM intact LUNGS: LCTAB, no crackles/rhonchi CV: Regular tachycardia ABDOMEN: Soft, nontender in all quadrants EXTREMITY: Normal ROM SKIN: No rash or erythema NEURO: Awake and alert, no focal motor deficits PSYCH: Normal mood and affect Course Vital Signs: Vital signs: Vital Signs Temperature 97.3 F L 07/16/21 21:09 Pulse Rate 72 07/16/21 22:39 Respiratory Rate 18 07/16/21 22:39 Blood Pressure 153/81 07/16/21 22:39 Pulse Oximetry 97 07/16/21 22:39 MDM - General Adult MDM Narrative: Medical decision making narrative: 66-year-old female presented to emergency room for evaluation of palpitation. On arrival, patient is irregular tachycardic to the 150s. EKG showed the patient is an 4:1 atrial flutter with rate of 152. Patient is age-adjusted D-dimer is within normal limit (though lab reported slightly higher). Rates improved after 5 mg of metoprolol IV and 50 mg of metoprolol p.o. Lab work-up largely within normal limit. Patient reports anxiety and was given 1mg of ativan and 1L of IVF. HR improved to 64. Instructed to be on metoprolol 25 mg until cleared by Cardiology I have given patient follow up with our case investigator to be seen by our [employer] Sales Agent outpatient for management of atrial flutter. Patient aware of a call from our case investigator to schedule for appointment(s) and verbalizes understanding of the importance of following up. Rx metoprolol 25mg daily for 14 days if patient is out of prescription. Disposition: Discharge. Patient counseled regarding diagnostic impression, treatment plan. Patient given ED strict return precautions to return for continuation, worsening, or development of new symptoms. Instructed to f/u w/ PCP regarding symptoms today. Patient verbalized understanding. Lab Data: Labs: Lab Results 07/16/21 07/16/21 07/16/21 21:30 21:30 21:30 WBC 11.6 10^3/uL H 10 ^3/uL (4.0-10.0) RBC 4.39 10^6/uL 10^6 /uL (4.1-5.3) Hgb 14.0 g/dL g/dL (11.5-15.3) Hct 41.7 % % (37.0-47.0) MCV 95.0 fl fl (81-99) MCH 31.9 pg pg (28.0-34.0) MCHC 33.6 g/dL g/dL (30.0-36.0) RDW 12.8 % % (12.1-15.1) Plt Count 310 10^3/cmm 10^3 /cmm (130-400) MPV 9.0 fL fL (7.4-10.4) Neut % (Auto) 61.5 % % Lymph % (Auto) 25.8 % % [place] % (Auto) 8.8 % % Eos % (Auto) 3.2 % % Baso % (Auto) 0.5 % % Neut # (Auto) 7.17 10^3/uL 10^3 /uL (1.8-7.7) Lymph # (Auto) 3.0 10^3/uL 10^3/ uL (0.8-4.8) [place] # (Auto) 1.0 10^3/uL H 10^ 3/uL (0.2-0.9) Eos # (Auto) 0.4 10^3/uL 10^3/ uL (0.0-0.8) Baso # (Auto) 0.1 10^3/uL 10^3/ uL (0.0-0.1) Nucleated RBC % (a uto) 0 % % Nucleated RBCs # 0.0 /100WBC /100W BC D-Dimer 0.63 ug/mIFEU H u g/mIFEU (0-0.59) Sodium 142 mmol/L mmol/L (136-145) Potassium 3.7 mmol/L mmol/L (3.5-5.1) Chloride 105 mmol/L mmol/L (98-107) Carbon Dioxide 22 mmol/L mmol/L (22-29) Anion Gap 18.7 (5-19) BUN 14 mg/dL mg/dL (8-23) Creatinine 0.5 mg/dL mg/dL (0.5-0.9) GFR Calculation 123.4 mL/min mL/m in (90-130) Glucose 123 mg/dL H mg/dL (65-115) Calculated Osmolal ity 296 mOsm/kg H mOs m/kg (285-295) Calcium 8.9 mg/dL mg/dL (8.5-10.5) Magnesium 1.9 mg/dL mg/dL (1.7-2.3) Troponin T Baselin e TSH 1.61 uIU/mL uIU/m L (0.27-4.20) Free T4 1.03 ng/dL ng/dL (0.82-1.77) 07/16/21 21:30 WBC RBC Hgb Hct MCV MCH MCHC RDW Plt Count MPV Neut % (Auto) Lymph % (Auto) [place] % (Auto) Eos % (Auto) Baso % (Auto) Neut # (Auto) Lymph # (Auto) [place] # (Auto) Eos # (Auto) Baso # (Auto) Nucleated RBC % (a uto) Nucleated RBCs # D-Dimer Sodium Potassium Chloride Carbon Dioxide Anion Gap BUN Creatinine GFR Calculation Glucose Calculated Osmolal ity Calcium Magnesium Troponin T Baselin e 7 ng/L ng/L (0-10) TSH Free T4 Discharge Plan Discharge Patient Disposition: Home Clinical Impression: Atrial flutter Condition: Stable Prescriptions: New metoprolol succinate 25 mg tablet extended release 24 hr 25 mg PO DAILY PRN (Reason: fast heart rate) Qty: 14 RF: 0 No Action Repatha Syringe 140 mg/mL syringe 140 mg SUBCUT .bi weekly 180 Days Qty: 1 RF: 5 omeprazole 20 mg capsule,delayed release(DR/EC) 20 mg PO DAILY RF: 0 alprazolam [Xanax] 0.5 mg tablet 0.5 mg PO BID PRN (Reason: Anxiety) RF: 0 tramadol 50 mg tablet 50 mg PO DAILY PRNRF: 0 cholecalciferol (vitamin D3) [Vitamin D3] 25 mcg (1,000 unit) capsule 50 mcg PO DAILY RF: 0 methocarbamol 500 mg tablet 500 mg PO BID PRNRF: 0 docusate sodium 100 mg capsule 100 mg PO DAILY RF: 0 Brilinta 90 mg tablet 90 mg PO BID RF: 0 aspirin [Adult Aspirin Regimen] 81 mg tablet,delayed release (DR/EC) 81 mg PO DAILY RF: 0 metoprolol succinate 25 mg tablet extended release 24 hr 12.5 mg PO DAILY RF: 0 biotin 10,000 mcg Capsule 10,000 mcg PO DAILY RF: 0 Lyrica 50 mg Capsule 50 mg PO BEDTIME RF: 0 Bioflex [id number] mg Tablet 1 tab PO DAILY RF: 0 multivitamin Tablet 1 tab PO DAILY RF: 0 Discharge Orders: Discharge ED (Routine); Ordered 07/16/21 Ordered By: Jeffrey Singh Referrals: Malcolm Somers MD [Primary Care Provider] - Discharge Diet: Advance as tolerated Discharge Activity: Resume usual activity Patient Instructions: Atrial Flutter (ED) Activity Restrictions/Additional Instructions: Please come back to the emergency room if your heart rate is fast again, or have any new or concerning complaints. Come back to the emergency room for any chest pain, shortness breath, palpitation, lightheadedness, or any new concerning complaints. Coding Level of Care Code ED Practical Nursing Instructor for Dianelys Fisher
[2021-07-16 21:37] VITALS: BP 195/132; PULSE 187; O2SAT 98
[2021-07-16 21:39] LABS: Basophils # 0.1 10^3/uL (0.0-0.1); Basophils % 0.5 %; Eosinophils # 0.4 10^3/uL (0.0-0.8); Eosinophils % 3.2 %; Hematocrit 41.7 % (37.0-47.0); Lymphocytes % 25.8 %; Mean Corpuscular HGB Conc 33.6 g/dL (30.0-36.0); Mean Corpuscular Hemoglobin 31.9 pg (28.0-34.0); Monocytes % 8.8 %; Neutrophils # 7.17 10^3/uL (1.8-7.7); Neutrophils % 61.5 %; Nucleated Red Blood Cells % 0 %; Platelet Count 310 10^3/cmm (130-400); Red Blood Count 4.39 10^6/uL (4.1-5.3); Red Cell Distribution Width 12.8 % (12.1-15.1); White Blood Count 11.6 10^3/uL (4.0-10.0)
[2021-07-16] MEDS: metoprolol tartrate 1 mg/1 mL SDV 5 mL 5 MG IVP (21:41)
[2021-07-16] MEDS: sodium chloride 0.9% 1,000 ML 999 ML IV (21:47)
[2021-07-16 22:03] LABS: D Dimer 0.63 ug/mIFEU (0-0.59)
[2021-07-16 22:08] LABS: Troponin(5th) Baseline 7 ng/L (0-10)
[2021-07-16 22:17] LABS: Anion Gap 18.7 (5-19); Blood Urea Nitrogen 14 mg/dL (8-23); Calcium 8.9 mg/dL (8.5-10.5); Carbon Dioxide 22 mmol/L (22-29); Chloride 105 mmol/L (98-107); Free T4 Free Thyroxine 1.03 ng/dL (0.82-1.77); Glomerular Filtration Rate 123.4 mL/min (90-130); Magnesium 1.9 mg/dL (1.7-2.3); Potassium 3.7 mmol/L (3.5-5.1); Sodium 142 mmol/L (136-145); Thyroid Stimulating Hormone 1.61 uIU/mL (0.27-4.20)
[2021-07-16 22:23] LABS: Glucose 123 mg/dL (65-115); Osmolality Calculated 296 mOsm/kg (285-295)
[2021-07-16 22:39] VITALS: BP 153/81; PULSE 72; RESP 18; O2SAT 97
[2021-07-16] MEDS: LORazepam 1 mg Tablet PO (22:49)
[2021-07-16 23:00] VITALS: BP 173/87; PULSE 66; O2SAT 99
--- NOTE | 2021-07-21 11:03 | PC.SOCIAL ---
Addendum entered by Radha Alegre 09/03/21 16:31: Patient had a follow up appointment scheduled for 08.04.21 with [facility] - patient did attend appointment. Addendum entered by Mary Marin RN 07/21/21 14:59: Victoria returned call and is aware of appt with Blanquita DE LEÓN at [facility] on 08/04/2021 with arrival time of 1:45pm. She has followed up at PCP clinic and may end up cancelling this appt. She will wait till after Lefor to decide depending on how she feels. Original Note: Referral from ED for cardiology appt received. Spoke to Martina at [facility] and appt made for 08/04/2020 at 1:45pm with Blanquita DE LEÓN. Tried to reach patient but unable to reach left message. CAlled and he is working and indicates pt is at Cardiac rehab. Per Him she will call back or I should try her again later to update of appointment. This nurse will follow up.
== END 2021-07-16 23:03 | disposition home or self-care (01) ==
PROVIDERS: Emergency Provider Emergency Medicine; PCP Family Medicine
DX: I48.92 Unspecified atrial flutter (principal); Z79.82 Long term (current) use of aspirin; Z87.891 Personal history of nicotine dependence
CPT/HCPCS: 71045; 80048; 83735; 84439; 84443; 84484; 85025; 85378; 96361; 96374; 99284; J3490; J7030

== ENCOUNTER 2021-07-21 14:26 | Outpatient (RCR) | payer BC, SELFPAY | END 2021-07-31 23:59 | disposition home or self-care (01) | LOC: CR 14:26 | PROVIDERS: Family Provider Family Medicine; PCP Family Medicine; Referring Provider Internal Medicine Cardiovascular Disease; Visit Provider Internal Medicine Cardiovascular Disease | DX: Z95.5 Presence of coronary angioplasty implant and graft (principal) | CPT/HCPCS: 93798 ==

== ENCOUNTER 2021-08-17 11:41 | Outpatient (RCR) | payer BC, SELFPAY | END 2021-08-31 23:59 | disposition home or self-care (01) | LOC: CR 11:41 | PROVIDERS: Family Provider Family Medicine; PCP Family Medicine; Referring Provider Internal Medicine Cardiovascular Disease; Visit Provider Internal Medicine Cardiovascular Disease | DX: Z95.5 Presence of coronary angioplasty implant and graft (principal) | CPT/HCPCS: 93798 ==

== ENCOUNTER 2021-09-01 11:44 | Outpatient (RCR) | payer BC, SELFPAY | END 2021-09-28 23:59 | disposition home or self-care (01) | LOC: CR 11:44 | PROVIDERS: Family Provider Family Medicine; PCP Family Medicine; Referring Provider Internal Medicine Cardiovascular Disease; Visit Provider Internal Medicine Cardiovascular Disease | DX: Z95.5 Presence of coronary angioplasty implant and graft (principal) | CPT/HCPCS: 93798 ==

== ENCOUNTER 2021-10-06 10:32 | Outpatient (RCR) | payer BC, SELFPAY | END 2021-10-29 23:59 | disposition home or self-care (01) | LOC: CR 10:32 | PROVIDERS: Family Provider Family Medicine; PCP Family Medicine; Referring Provider Internal Medicine Cardiovascular Disease; Visit Provider Internal Medicine Cardiovascular Disease | DX: Z95.5 Presence of coronary angioplasty implant and graft (principal) | CPT/HCPCS: 93798 ==

== ENCOUNTER 2021-10-30 09:55 | Outpatient (RCR) | payer BC, SELFPAY | END 2021-11-28 23:59 | disposition home or self-care (01) | LOC: CR 09:55 | PROVIDERS: Family Provider Family Medicine; PCP Family Medicine; Referring Provider Internal Medicine Cardiovascular Disease; Visit Provider Internal Medicine Cardiovascular Disease | DX: Z95.5 Presence of coronary angioplasty implant and graft (principal) | CPT/HCPCS: 93798 ==

== ENCOUNTER 2021-11-04 10:30 | Outpatient (CLI) | payer BC, SELFPAY ==
--- NOTE | 2021-11-04 | US_ITS ---
WS: [id number] ULTRASOUND RENAL TECHNIQUE: Ultrasound examination of both kidneys. CLINICAL INFORMATION: HEMATURIA COMPARISON: None. FINDINGS: RIGHT: Right kidney is normal in size and appearance. Echogenicity: Normal. Cortical thickness: 1.5 cm; Normal. Hydronephrosis: None. Perinephric fluid: None. Right kidney measures: 9.8 cm x 5.3 cm x 4.4 cm. LEFT: Left kidney is normal in size and appearance. Echogenicity: Normal. Cortical thickness: 1.7 cm; Normal. Hydronephrosis: None. Perinephric fluid: None. Left kidney measures: 10.1 cm x 4.5 cm x 4.7 cm. Normal visualized aorta. Mild diffuse bladder wall thickening can be seen with chronic cystitis.Small amount of debris in the bladder. Recommend correlation with UTI. In addition, bladder diverticulum i n the LEFT dome of the bladder measuring 0.97 x 2.5 cm US/US renal BI* [id number] IMPRESSION: 1. No hydronephrosis in either kidney. Kidneys are normal in appearance. 2. Mild diffuse bladder wall thickening can be seen with chronic cystitis. Sma ll amount of debris in the bladder. Recommend correlation for UTI. 3. Wide neck bladder diverticulum in the LEFT dome of the bladder measuring 9. 7 x 2.5 cm
== END 2021-11-04 10:31 | disposition home or self-care (01) ==
PROVIDERS: PCP Family Medicine; Visit Provider Family Medicine
DX: R31.9 Hematuria, unspecified (principal); N32.3 Diverticulum of bladder
CPT/HCPCS: 76770

== ENCOUNTER 2021-11-16 07:03 | Outpatient (CLI) | payer BC, SELFPAY ==
[2021-11-16 07:59] LABS: Chol HDL Ratio 2.96 mg/dL (0.0-4.40); Cholesterol 198 mg/dL (0-200); HDL Cholesterol 67 mg/dL (60-100); LDL Cholesterol Calculated 112 mg/dL (50-129); LDL HDL Ratio 1.67 RATIO (0.00-3.22); Triglycerides 93 mg/dL (0-150)
== END 2021-11-16 07:04 | disposition home or self-care (01) ==
LOC: LAB 07:05
PROVIDERS: PCP Family Medicine; Visit Provider Internal Medicine Cardiovascular Disease
DX: E78.5 Hyperlipidemia, unspecified (principal)
CPT/HCPCS: 36415; 80061

== ENCOUNTER 2021-11-30 10:48 | Outpatient (RCR) | payer SELFPAY | END 2021-12-29 23:59 | disposition home or self-care (01) | LOC: CR 10:48 | PROVIDERS: Family Provider Family Medicine; PCP Family Medicine; Referring Provider Internal Medicine Cardiovascular Disease; Visit Provider Internal Medicine Cardiovascular Disease | DX: Z95.5 Presence of coronary angioplasty implant and graft (principal) ==

== ENCOUNTER 2021-12-30 09:43 | Outpatient (RCR) | payer SELFPAY | END 2022-01-28 23:59 | disposition home or self-care (01) | LOC: CR 09:43 | PROVIDERS: Family Provider Family Medicine; PCP Family Medicine; Referring Provider Internal Medicine Cardiovascular Disease; Visit Provider Internal Medicine Cardiovascular Disease | DX: Z95.5 Presence of coronary angioplasty implant and graft (principal) ==

== ENCOUNTER 2022-01-29 09:49 | Outpatient (RCR) | payer SELFPAY | END 2022-02-28 23:59 | disposition home or self-care (01) | LOC: CR 09:49 | PROVIDERS: Family Provider Family Medicine; PCP Family Medicine; Referring Provider Internal Medicine Cardiovascular Disease; Visit Provider Internal Medicine Cardiovascular Disease | DX: Z95.5 Presence of coronary angioplasty implant and graft (principal) ==

== ENCOUNTER 2022-02-11 11:33 | Outpatient (CLI) | payer BC, SELFPAY ==
--- NOTE | 2022-02-11 11:43 | MM_ITS ---
WS: [id number] SCREENING DIGITAL BREAST TOMOSYNTHESIS MAMMOGRAM WITH CAD HISTORY: SCREENING COMPARISON: 02/12/2019, 12/16/2017 Bilateral CC and MLO with tomosynthesis and synthetic mammography submitted. Computer aided detection analyzed. Breast composition: There are scattered areas of fibroglandular density. Asymmetry in the lateral LEF T breast is slightly more prominent than on prior studies. This is in the upper quadrant on the later al projection. Recommend spot compression views. The asymmetry in the RIGHT breast towards the upper outer quadrant is involuting normally. MM/[place] [id number] IMPRESSION: BI-RADS: 0-Incomplete: Need additional imaging evaluation FOLLOW UP: Need Additional Imaging LEFT breast: Spot compression views (CC and MLO). True ML. Ultrasound to follow if abnormality persists.
== END 2022-02-11 11:34 | disposition home or self-care (01) ==
PROVIDERS: Family Provider Family Medicine; PCP Family Medicine; Visit Provider Family Medicine
DX: Z12.31 Encounter for screening mammogram for malignant neoplasm of breast (principal)
CPT/HCPCS: 77063; 77067

== ENCOUNTER 2022-03-03 07:05 | Outpatient (CLI) | payer BC, SELFPAY ==
--- NOTE | 2022-03-03 07:19 | MM_ITS ---
WS: [id number] ADDITIONAL VIEWS LEFT MAMMOGRAM WITH DIGITAL BREAST TOMOSYNTHESIS. HISTORY: abnormal mammo COMPARISON: 02/11/2022, 02/12/2019 Spot compression views LEFT breast in CC, MLO projections and true ML submitted with digital breast t omosynthesis and SM. With additional spot compression views asymmetry upper-outer quadrant of the LEFT breast resolves. Th e asymmetry is now very similar to multiple prior examinations. No distortion. No calcification. MM/[place] [id number] IMPRESSION: BI-RADS: 2-Benign FOLLOW UP: 1 Year Follow-up
== END 2022-03-03 07:06 | disposition home or self-care (01) ==
LOC: RAD 07:06
PROVIDERS: PCP Family Medicine; Visit Provider Family Medicine
DX: R92.8 Other abnormal and inconclusive findings on diagnostic imaging of breast (principal)
CPT/HCPCS: 77061

== ENCOUNTER 2022-04-01 12:41 | Outpatient (RCR) | payer SELFPAY | END 2022-04-30 23:59 | disposition home or self-care (01) | LOC: CR 12:41 | PROVIDERS: PCP Family Medicine; Referring Provider Internal Medicine Cardiovascular Disease; Visit Provider Internal Medicine Cardiovascular Disease | DX: Z95.5 Presence of coronary angioplasty implant and graft (principal) ==

== ENCOUNTER 2022-05-05 12:26 | Outpatient (RCR) | payer SELFPAY | END 2022-05-31 23:59 | disposition home or self-care (01) | LOC: CR 12:26 | PROVIDERS: PCP Family Medicine; Referring Provider Internal Medicine Cardiovascular Disease; Visit Provider Internal Medicine Cardiovascular Disease | DX: Z95.5 Presence of coronary angioplasty implant and graft (principal) ==

== ENCOUNTER → 2022-05-24 14:16 | Outpatient (BNVA) | payer BC, SELFPAY | PROVIDERS: PCP Family Medicine; Referring Provider Family Medicine; Visit Provider Podiatrist Foot & Ankle Surgery | DX: M19.071 Primary osteoarthritis, right ankle and foot (principal); M19.072 Primary osteoarthritis, left ankle and foot; M24.571 Contracture, right ankle | CPT/HCPCS: 73630 ==

== ENCOUNTER 2022-06-04 14:46 | Outpatient (RCR) | payer SELFPAY | END 2022-06-30 23:59 | disposition home or self-care (01) | LOC: CR 14:46 | PROVIDERS: PCP Family Medicine; Referring Provider Internal Medicine Cardiovascular Disease; Visit Provider Internal Medicine Cardiovascular Disease | DX: Z95.5 Presence of coronary angioplasty implant and graft (principal) ==

== ENCOUNTER 2022-07-01 13:26 | Outpatient (RCR) | payer SELFPAY | END 2022-07-31 23:59 | disposition home or self-care (01) | LOC: CR 13:26 | PROVIDERS: PCP Family Medicine; Referring Provider Internal Medicine Cardiovascular Disease; Visit Provider Internal Medicine Cardiovascular Disease | DX: Z95.5 Presence of coronary angioplasty implant and graft (principal) ==

== ENCOUNTER 2022-07-15 08:55 | Day surgery (SDC) | payer BC, SELFPAY ==
[2022-07-14 14:54] VITALS: BMI 41.5
[2022-07-15] VITALS (11 sets, daily range): BP systolic 123–177; BP diastolic 74–95; PULSE 59–69; RESP 16–22; TEMP 36.2–36.6; O2SAT 95–99
[2022-07-15] MEDS: sodium chloride 0.9% 1,000 ML 30 ML IV (09:55)
--- NOTE | 2022-07-15 10:25 | ANES.PREANE2 ---
Pre-Anesthetic Assessment Height/Weight: Height 1.63 m Weight 109.769 kg Temp Pulse Resp BP Pulse Ox O2 Del Method 97.7 F 64 16 177/88 99 07/15/22 09:59 07/15/22 09:59 07/15/22 09:59 07/15/22 09:59 07/15/22 09:59 07/15/22 09:59 Preop Diagnosis: Left retromolar trigone/palate submucosal lesion Operation Date: 07/15/22 10:40 Proposed Procedures p 67332 - excision of left retromolar trigone and palate submucsal lesion - [address] with frozen section K13.70(Left) - Randall Segal MD Familial anesthetic complications: none Was Beta Brandon taken within 24 hours: N/A Was Clonidine taken within 24 hours: N/A Last intake: Intake Last Liquid Date 07/14/22 Last Liquid Time 23:15 Last Solid Date 07/14/22 Last Solid Time 21:00 Social No alcohol and No tobacco Exam alert, oriented x 3, clear to auscultation bilaterally and regular rate & rhythm Airway Mallampati: Class II Dentition: full Pulmonary Sleep Apnea CV/HEM Atrial Fibrillation, Arrythmia (SVT), Coronary Artery Disease, Deep Vein Thrombosis, Hypertension and Myocardial Infarction GI Gastroesophageal Reflux Disease and Peptic Ulcer Disease Metabolic Hyperlipidemia and Morbid Obesity Neuropsych trigeminal neuralgia Anesthetic Plan ASA status: 3 Anesthesia: General Risk of > 500 ml blood loss (7ml/kg in children): No Medications/Allergies Home Medications Medication Instructions Recorded Confirmed Last Taken Type cholecalciferol (vitamin D3) 25 50 mcg PO DAILY 11/18/20 07/14/22 07/14/22 History mcg (1,000 unit) capsule (Vitamin D3) multivitamin 1 tab PO DAILY 11/21/20 07/14/22 07/14/22 History vit 1 tab PO BID 11/21/20 07/14/22 07/14/22 History [id number] 500 mg-50 mg-25 mg-40 mg tablet (Bioflex) docusate sodium 100 mg capsule 100 mg PO DAILY 03/16/21 07/14/22 07/14/22 History tramadol 50 mg tablet 50 mg PO DAILY PRN Pain 03/16/21 07/14/22 07/14/22 History pantoprazole 40 mg tablet,delayed 40 mg PO DAILY 12/15/21 07/14/22 07/14/22 History release alprazolam 0.5 mg tablet (Xanax) 0.5 mg PO BID PRN Anxiety #60 tabs 05/26/22 07/14/22 07/13/22 Rx alirocumab 150 mg/mL subcutaneous 150 mg SUBCUT Q14D #2 mL 06/15/22 07/14/22 07/05/22 Rx pen injector (Praluent Pen) apixaban 5 mg tablet (Eliquis) 5 mg PO BID #90 tabs 06/15/22 07/14/22 07/14/22 Rx clobetasol 0.05 % topical ointment See Rx Instructions .Route 07/01/22 07/14/22 Unknown Rx .COMPLEX #45 grams methocarbamol 500 mg tablet 500 mg PO BID PRN spasms #60 tabs 07/13/22 07/14/22 07/14/22 Rx oxycodone-acetaminophen 7.5 mg-325 1 tab PO BID PRN pain 1 month #60 07/13/22 07/14/22 07/14/22 Rx mg tablet tabs Allergies Allergy/AdvReac Type Severity Reaction Status Date / Time ezetimibe [From Zetia] Allergy Severe unknown Verified 07/14/22 14:50 red yeast rice Allergy Severe unknown Verified 07/14/22 14:50 Rjbskmf-RPJ-ZmI Reductase Allergy Severe unknown Verified 07/14/22 14:50 Inhibitor [Owwsncz-Wjz-Jdq Reductase Inhibitor] escitalopram [From Lexapro] Allergy Intermediate unknown Verified 07/14/22 14:50 gabapentin Allergy Intermediate unknown Verified 07/14/22 14:50 sulfamethoxazole Allergy Intermediate unknown Verified 07/14/22 14:50 [From Bactrim] trimethoprim [From Bactrim] Allergy Intermediate unknown Verified 07/14/22 14:50 codeine Allergy Unknown Verified 07/14/22 14:50 Penicillins Allergy Unknown Verified 07/14/22 14:50 prochlorperazine Allergy Unknown Verified 07/14/22 14:50 [From Compazine] simvastatin Allergy unknown Verified 07/14/22 14:50 Sulfa (Sulfonamide Allergy Unknown Verified 07/14/22 14:50 Antibiotics) verapamil Allergy unknown Verified 07/14/22 14:50 PFS Anesthesia Medical History Anxiety Chronic GERD Coronary artery disease DVT (deep venous thrombosis) Dyspnea on exertion Endometriosis Fatigue Gastric cardia ulcer Hypercholesteremia Hypersomnolence Lichen sclerosus (~2018) Confirmed by biopsy in 2019 Malaise Myocardial infarction (~2020) No pertinent past medical history neghx: dm,thyroid,pe PCP: Dr. Somers Palpitations Spinal stenosis SVT (supraventricular tachycardia) Trigeminal neuralgia Surgical History H/O brain surgery (~2000) mvd for tgn H/O heart artery stent (~05/2021) Dr. Dunn in [place]-- LAD H/O knee surgery Total knee replacement Right--08/23/2017 Total knee replacement Left--05/18/2018 H/O: hysterectomy (~1989) TVH; ovaries spared. Dx with endometriosis History of atrial fibrillation (~02/22/22) cardiac ablation done History of cholecystectomy (~1996) History of lumbar fusion (08/18/16) History of lung surgery (~2004) nodule removal-- benign Family History Brother Heart disease x2 Stroke Brother Hypercholesteremia Grandmother Stroke Maternal Breast cancer Maternal--dx age 60 Father Stroke Heart disease Hypercholesteremia Family/Other Breast cancer Maternal aunt--dx age 37 Mother Colon cancer dx age 60 Denies family history of Ovarian cancer Diabetes Hypertension Uterine cancer Thyroid disease Social History Smoking and tobacco status: former smoker (1989) Quit status (tobacco): has quit using tobacco Year quit tobacco: 1989 Alcohol intake: current Data Anesthesia Cardiac Studies: Echocardiogram Limited Views 07/06/21 Echocardiogram Ultrasound 11/21/20 Sestamibi Stress Test (Cardiology) 11/06/20 Cardiac Event Monitor 10/21/20
--- NOTE | 2022-07-15 12:14 | W.PM.OPSUD ---
Surgery/Procedure H&P Update DATE OF PROCEDURE: July 15, 2022 DATE H&P PERFORMED: 06/16/22 H&P UPDATE INFORMATION: I have reviewed H&P completed within last 30 days, I have examined patient prior to procedure and No changes to prior documentation CHANGES TO PREVIOUS DOCUMENTATION: No changes PREOP DIAGNOSIS: Left retromolar trigone/palate submucosal lesion PRIMARY INDICATION FOR PROCEDURE: Left retromolar trigone/palate submucosal lesion PLANNED PROCEDURE: Operation Date: 07/15/22 10:40 Proposed Procedures p 90065 - excision of left retromolar trigone and palate submucsal lesion - 10232 with frozen section K13.70(Left) - Randall Segal MD
[2022-07-15] MEDS: azithromycin 500 MG in sodium chloride 0.9% 250 ML 250 MG IV (12:18)
[2022-07-15] MEDS: EPINEPHrine 1 mg/mL INJ 2 MG XX (12:59)
--- NOTE | 2022-07-15 13:13 | PM.OP ---
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 Procedure done: Excision of submucosal mucocele left palate/retromolar trigone area. Implants: No implants Specimens removed/disposition: Mucocele and minor salivary glands Pathology: Mucocele and minor salivary glands for permanent section only. Surgeon: Randall Segal MD Anesthesia: General and Local Estimated blood loss: 20 mL Complications: No complications encountered Findings: The patient had a left soft palate/retromolar trigone region bluish cystic mass present in varying sizes at various times. Does cause some discomfort. Patient very concerned that it could be a melanoma because of its coloration. Presents for excision. Brief History: 67-year-old female patient who has had a bluish cystic mass in the left soft palate/medial retromolar trigone region for months. It varies in size. Sometimes flatter than others. Suspected to be a ranula or mucocele. Patient very concerned because of its coloration. Wanted to make sure that it was not melanoma. Therefore patient being brought to the operating room at this time to undergo excision of this mass for diagnostic purposes. The procedure its risks and complications were explained in detail to the patient. She understood the risks to include bleeding infection numbness scarring swelling bruising and recurrence as well as allergic reaction and anesthetic risks. With these things understood informed consent was granted and witnessed. Procedure: Description of procedure: The patient was placed on the operating table in the supine position. Adequate general endotracheal tube anesthesia was obtained. She was given Zithromax for prophylaxis. A timeout was accomplished identifying the patient and date of and planned procedure allergies fire risk and medications given. With all in agreement the procedure continued. It was elected to rotate the table 90 degrees and position the patient as it would be for a tonsillectomy. The head was dropped 15 degrees to the horizontal. The eyes were taped shut. Head drape was applied. A Lucian Wesly mouthgag was inserted over the endotracheal tube and tongue ensuring that the upper incisors were in the guard. This was opened and suspended bended from a rolled towel placed on her chest. Evaluation of the mass reveals about a 1 cm bluish hue underneath the normal pink mucous membrane of the soft palate. A total of 1.7 mL of 2% Xylocaine with 1-100,000 epinephrine was used to infiltrate around the area. After several minutes past and incision was created over this mass and careful dissection was carried out around it. In spite of attempt to remove it with its entire contents in place it did rupture during the day dissection. It contained clear mucoid fluid. I removed the cyst lining and all attached minor salivary glands. This extended for approximately 2 cm superior to inferior and about 1 cm medial to lateral. Hemostasis was obtained with bipolar cautery and due to the patient being on Eliquis she had generalized ooze from several areas so I packed a small piece of Surgicel into the defect. That controlled the bleeding quickly. After rinsing the area and suctioning the incision was closed with a 3's of simple 4-0 Vicryl sutures. The throat was again irrigated and suctioned clean. The mouthgag was released and removed. The mouth was suctioned again with no sign of bleeding. The patient was then returned to anesthesia for wake-up and extubation. The patient tolerated the procedure well and estimated blood loss of 20 mL and arrived in recovery in stable condition. At 1 point during the procedure I did apply a tonsil sponge soaked in 1-1000 epinephrine and that failed to control the generalized ooze.
--- NOTE | 2022-07-15 13:37 | SUR.PHASEI ---
1326 PT TO PACU 5 AWAKES TO VOICE ORIENTED X 3 GOOD RESP EFFORT NOTED MONITOR SR WITH NO ECTPOPY NOTED IV TO RT HAND PATENT OF NS 500 ML AT KVO RATE PER GRAVITY, PT INCISION IS ORAL WITH NO DRESSING, SITE PINK WITH NO ACTIVE BLEEDING NOTED, PT HAS BILAT SCDS ON AND WORKING, PT COUGHS OCCASIONALLY. 1339 PT AWAKE ALERT TAKING ICE CHIPS PT STATES SOME PAIN TO MOUTH ( STATES LITTLE BIT) THEN QUICKLY BACK TO SLEEP FACE SCALE 2.
[2022-07-15] MEDS: fentaNYL 50 mcg/mL INJ 2mL IVP (13:45)
--- NOTE | 2022-07-15 13:49 | SUR.PHASEI ---
SEE PAIN MED GIVEN PER PROTOCOL, PT AWAKE ALERT TAKING ICE CHIPS AND ASKING PERTINENT QUESTIONS.
[2022-07-15] MEDS: HYDROcodone-acetaminophen 7.5-325 mg Tablet 1 TAB PO (14:15)
[2022-07-15] MEDS: cetylpyridinium Lozenge 1 EACH MUCOUS MEM (14:49)
--- NOTE | 2022-07-15 15:56 | ANE.PACU2 ---
Inpatient post-anesthesia follow up: Airway intact: Yes Vital signs: Temperature 97.9 F Pulse Rate 62 Respiratory Rate 16 Blood Pressure 149/78 Pulse Oximetry 96 Oxygen Delivery Me thod Room Air Oxygen Flow Rate Fraction of Inspir ed Oxygen Hydration adequate: Yes Nausea and vomiting: No Pain level: 1 Mental status: Baseline
== END 2022-07-15 15:30 | disposition home or self-care (01) ==
PROVIDERS: PCP Family Medicine; Visit Provider Otolaryngology
PROC: (CPT 42120; principal; 2022-07-15 10:30)
DX: K13.70 Unspecified lesions of oral mucosa (principal); G47.30 Sleep apnea, unspecified; I48.91 Unspecified atrial fibrillation; I25.10 Atherosclerotic heart disease of native coronary artery without angina pectoris; Z86.718 Personal history of other venous thrombosis and embolism; I10 Essential (primary) hypertension; I25.2 Old myocardial infarction; K21.9 Gastro-esophageal reflux disease without esophagitis; Z87.11 Personal history of peptic ulcer disease; E78.5 Hyperlipidemia, unspecified; E66.01 Morbid (severe) obesity due to excess calories; Z68.24 Body mass index [BMI] 24.0-24.9, adult; Z87.891 Personal history of nicotine dependence
CPT/HCPCS: 42120; J0171; J0456; J1100; J2405; J2704; J3010; J3490; J7030; J7050

== ENCOUNTER 2022-08-04 14:19 | Outpatient (RCR) | payer SELFPAY | END 2022-08-31 23:59 | disposition home or self-care (01) | LOC: CR 14:19 | PROVIDERS: PCP Family Medicine; Referring Provider Internal Medicine Cardiovascular Disease; Visit Provider Internal Medicine Cardiovascular Disease | DX: Z95.5 Presence of coronary angioplasty implant and graft (principal) ==

== ENCOUNTER → 2022-08-11 09:30 | Outpatient (BNVA) | payer MEDICARE, OTHER, SELFPAY | PROVIDERS: PCP Family Medicine; Visit Provider Podiatrist Foot & Ankle Surgery | DX: M21.371 Foot drop, right foot (principal); M19.071 Primary osteoarthritis, right ankle and foot; M19.072 Primary osteoarthritis, left ankle and foot; M24.571 Contracture, right ankle | CPT/HCPCS: 99214 ==

== ENCOUNTER 2022-08-18 07:42 | Emergency (ER) | payer MEDICARE, OTHER, SELFPAY ==
[2022-08-18 07:50] VITALS: BP 140/80; PULSE 80; RESP 18; TEMP 36.8; O2SAT 96; BMI 41.1
--- NOTE | 2022-08-18 07:55 | XRR_ITS ---
PROCEDURE INFORMATION: Exam: XR Left Shoulder Exam date and time: 08/18/2022 8:10 AM Age: 67 years old Clinical indication: Injury or trauma; Blunt trauma (contusions or hematomas); Injury date: 08/18/22; Patient HX: Fall going to PT today. PT landed on RT knee and hit left shoulder on water fountain, pain with moving left shoulder; Additional info: Trauma/injury TECHNIQUE: Imaging protocol: Radiologic exam of the Left shoulder. Views: 2 or more views. COMPARISON: CR (CHEST, ) 07/16/2021 9:22 PM FINDINGS: Bones/joints: Normal. Soft tissues: Normal. XR/XR shoulder LT min 2V* [id number] IMPRESSION: No acute findings.
--- NOTE | 2022-08-18 07:55 | XRR_ITS ---
PROCEDURE INFORMATION: Exam: XR Right Knee Exam date and time: 08/18/2022 8:06 AM Age: 67 years old Clinical indication: Injury or trauma; Blunt trauma; Injury date: 08/18/22; Prior surgery; Patient HX: Fall going to PT today. PT landed on RT knee and hit left shoulder on water fountain, pain with moving left shoulder; Additional info: Trauma/injury/fall TECHNIQUE: Imaging protocol: Radiologic exam of the Right knee. Views: 3 views. COMPARISON: MR knee RT wo con* [id number] 12/28/2016 6:46 AM FINDINGS: Bones/joints: The patient is status post right total knee arthroplasty with patellar resurfacing. No fracture or dislocation. Soft tissues: Normal. XR/XR knee RT 3V* [id number] IMPRESSION: No acute injury.
--- NOTE | 2022-08-18 07:55 | W.ED.FALL ---
HPI - Fall General: Chief Complaint: Fall Stated Complaint: fall, left shoulder and right knee pain Time Seen by Provider: 08/18/22 07:45 Source: patient Mode of arrival: wheelchair Limitations: no limitations History of Present Illness: Patient is a 67-year-old female who presents to ED today following a fall. Patient states she was headed to cardiac rehabilitation when she accidentally tripped and fell. Patient states she injured her left shoulder and her right knee. She states she has been able to bear weight on the right lower leg/knee. Her main concern seems to be her shoulder as she has virtually no range of motion secondary to discomfort. She denies striking her head or LOC. She has no other complaints at this time. MD complaint: fall Onset (ago): hour(s) Fall from: standing Fall witnessed: yes, by family and yes, by bystander Place fall occurred: other (hospital-headed to cardiac rehab) Loss of consciousness: None Prolonged down time: no Symptoms prior to fall: none Context: tripped/slipped Location of injury - extremities: Left: shoulder and Right: knee Severity: moderate Associated symptoms-after fall: Reports no associated symptoms; Denies chest pain, headache(s), lightheadedness or neck pain Review of Systems Eyes: Denies: change in vision Card: Denies: chest pain, palpitations, lightheadedness, syncope or pre-syncope Resp: Denies: dyspnea Musc: Reports: joint pain (R knee, L shoulder); Denies: neck pain, back pain, extremity pain, extremity swelling or joint swelling Neuro: Denies: headache(s), numbness in extremities, weakness in extremities or sensory changes [facility] ED PFSH: Medical History Anxiety Chronic GERD Coronary artery disease DVT (deep venous thrombosis) Dyspnea on exertion Endometriosis Fatigue Gastric cardia ulcer Hypercholesteremia Hypersomnolence Lichen sclerosus (~2018) Confirmed by biopsy in 2019 Malaise Myocardial infarction (~2020) No pertinent past medical history neghx: dm,thyroid,pe PCP: Dr. Somers Palpitations Spinal stenosis SVT (supraventricular tachycardia) Trigeminal neuralgia Surgical History H/O brain surgery (~2000) mvd for tgn H/O heart artery stent (~05/2021) Dr. Dunn in [place]-- LAD H/O knee surgery Total knee replacement Right--08/23/2017 Total knee replacement Left--05/18/2018 H/O: hysterectomy (~1989) TVH; ovaries spared. Dx with endometriosis History of atrial fibrillation (~02/22/22) cardiac ablation done History of cholecystectomy (~1996) History of lumbar fusion (08/18/16) History of lung surgery (~2004) nodule removal-- benign Family History Brother Heart disease x2 Stroke Brother Hypercholesteremia Grandmother Stroke Maternal Breast cancer Maternal--dx age 60 Father Stroke Heart disease Hypercholesteremia Family/Other Breast cancer Maternal aunt--dx age 37 Mother Colon cancer dx age 60 Denies family history of Ovarian cancer Diabetes Hypertension Uterine cancer Thyroid disease Social History Smoking and tobacco status: former smoker (1989) Quit status (tobacco): has quit using tobacco Year quit tobacco: 1989 Alcohol intake: current Physical Exam Const: COMMON NORMALS: patient oriented x3, no limitations and alert GENERAL APPEARANCE: cooperative HENMT: COMMON NORMALS: normocephalic and atraumatic HEAD & SCALP: normal to inspection, normocephalic and atraumatic Extremity: COMMON NORMALS: capillary refill normal GENERAL: Yes normal exam except as noted LEFT UPPER EXTREMITY: Yes shoulder joint (exquisitely tender; very limited ROM secondary to pain) Left shoulder joint: Yes neurovascular exam (normal) RIGHT LOWER EXTREMITY: Yes knee joint (TTP mainly medially; maintains fairly good ROM) Right knee: Yes neurovascular exam (normal) Neuro: MICAH COMA SCALE: document GCS findings Micah coma scale eye opening: Spontaneous Micah coma scale verbal response: Orientated Micah coma scale motor response: Obey commands Micah coma scale total score: 15 COMMON NORMALS: patient oriented x3, moves all extremities, no focal motor deficits and no sensory deficits noted SENSORIUM/ORIENTATION: Yes alert Skin: COMMON NORMALS: no rashes or lesions noted GENERAL SKIN EXAM: no rashes or lesions noted Course Vital Signs: Vital signs: Vital Signs Temperature 98.3 F 08/18/22 07:50 Pulse Rate 80 08/18/22 07:50 Respiratory Rate 18 08/18/22 07:50 Blood Pressure 140/80 08/18/22 07:50 Pulse Oximetry 96 08/18/22 07:50 Oxygen Delivery Me thod 08/18/22 07:50 MDM - Fall Medical Decision Making XRs negative. Recommend conservative treatment at home. Follow-up with primary care if pain does not seem to be improving over the next 1 to 2 weeks. Lab Data Radiology Impressions Knee X-Ray 08/18/22 07:55 IMPRESSION: No acute injury. Shoulder X-Ray 08/18/22 07:55 IMPRESSION: No acute findings. Discharge Plan Discharge Patient Disposition: Home Clinical Impression: Fall from slip, trip, or stumble Qualifiers: Encounter type: initial encounter Qualified Code(s): W01.0XXA - Fall on same level from slipping, tripping and stumbling without subsequent striking against object, initial encounter Injury of left shoulder Qualifiers: Encounter type: initial encounter Qualified Code(s): S49.92XA - Unspecified injury of left shoulder and upper arm, initial encounter Injury of right knee Qualifiers: Encounter type: initial encounter Qualified Code(s): S89.91XA - Unspecified injury of right lower leg, initial encounter Condition: Stable Prescriptions: No Action cholecalciferol (vitamin D3) [Vitamin D3] 25 mcg (1,000 unit) capsule 50 mcg PO DAILY docusate sodium 100 mg capsule 100 mg PO DAILY methocarbamol 500 mg tablet 500 mg PO BID PRN (Reason: spasms) Qty: 60 11RF oxycodone-acetaminophen 7.5-325 mg tablet 1 tab PO Q6H PRN (Reason: pain) 30 Days Qty: 120 0RF (DME) AFO brace See Rx Instructions .Route .MEDSUPPLY Qty: 1 0RF Rx Instructions: As directed Praluent Pen 150 mg/mL pen injector 150 mg SUBCUT Q14D Qty: 2 11RF Rx Instructions: inject into abdomen, thigh, or upper arm (deltoid muscle); rotate sites Eliquis 5 mg tablet 5 mg PO BID Qty: 90 3RF alprazolam [Xanax] 0.5 mg tablet 0.5 mg PO BID PRN (Reason: Anxiety) Qty: 60 5RF clobetasol 0.05 % ointment See Rx Instructions .ROUTE .COMPLEX Qty: 45 1RF Dose Instruction: apply topically TWICE DAILY NEEDED FOR lichen sclerosis Rx Instructions: apply topically TWICE DAILY NEEDED FOR lichen sclerosis pantoprazole 40 mg tablet,delayed release (DR/EC) See Rx Instructions .ROUTE .COMPLEX Qty: 90 3RF Dose Instruction: TAKE 1 TABLET BY MOUTH EVERY DAY Rx Instructions: TAKE 1 TABLET BY MOUTH EVERY DAY tramadol 50 mg tablet 50 mg PO DAILY PRN (Reason: Pain) Qty: 120 5RF Rx Instructions: four times daily as needed Bioflex 771-91-77-40 mg Tablet 1 tab PO BID multivitamin Tablet 1 tab PO DAILY Discharge Orders: Discharge ED (Routine); Ordered 08/18/22 Ordered By: Carmen Perez Referrals: Malcolm Somers MD [Primary Care Provider] - Coding Level of Care Code ED Manager Marketing Sales for Chg Fwd Exam Detailed
--- NOTE | 2022-08-18 07:56 | PC.NURSE ---
Applied ice to R knee and L shoulder.
== END 2022-08-18 09:03 | disposition home or self-care (01) ==
PROVIDERS: Emergency Provider Physician Assistant; PCP Family Medicine
DX: S49.92XA Unspecified injury of left shoulder and upper arm, initial encounter (principal); S89.91XA Unspecified injury of right lower leg, initial encounter; Z79.01 Long term (current) use of anticoagulants; W01.0XXA Fall on same level from slipping, tripping and stumbling without subsequent striking against object, initial encounter; Y92.239 Unspecified place in hospital as the place of occurrence of the external cause; I25.10 Atherosclerotic heart disease of native coronary artery without angina pectoris; I25.2 Old myocardial infarction
CPT/HCPCS: 29240; 73030; 73562; 99284

== ENCOUNTER 2022-09-01 13:22 | Outpatient (RCR) | payer MEDICARE, OTHER, SELFPAY | END 2022-09-13 16:29 | disposition home or self-care (01) | LOC: SPT 13:22 | PROVIDERS: PCP Family Medicine; Visit Provider Podiatrist Foot & Ankle Surgery | DX: M21.371 Foot drop, right foot (principal) | CPT/HCPCS: 97110; 97161 ==

== ENCOUNTER 2022-09-01 15:36 | Outpatient (RCR) | payer SELFPAY | END 2022-09-28 23:59 | disposition home or self-care (01) | LOC: CR 15:36 | PROVIDERS: PCP Family Medicine; Referring Provider Internal Medicine Cardiovascular Disease; Visit Provider Internal Medicine Cardiovascular Disease | DX: Z95.5 Presence of coronary angioplasty implant and graft (principal) ==

== ENCOUNTER 2022-09-03 06:26 | Outpatient (CLI) | payer MEDICARE, OTHER, SELFPAY ==
--- NOTE | 2022-09-03 07:15 | MR_ITS ---
WS: [id number] MRI LEFT SHOULDER HISTORY: rotator cuff injury COMPARISON: Radiograph 08/18/2022 TECHNIQUE: Multiplanar sequences of the shoulder joint are submitted. Moderate AC joint arthritis. Joint space narrowing with osteophytes involving the distal clavicle and acromion. Small amount of fluid along the AC joint. Bone and soft tissue hypertrophy with encroachme nt upon the supraspinatus. 6 mm osteophyte with mild subacromial impingement. No os acromion. Biceps tendon in the bicipital groove. Subchondral cystic changes at the base of the reciprocal groove. Mild narrowing of the glenohumeral joint. No edema or atrophy of the rotator cuff muscles. There is a bnormal signal in the proximal subscapularis tendon and muscle. Increased T2 signal near the axillary pouch. The increased signal in the axillary pouch is most consistent with injury to the inferior gle nohumeral ligament. There is a small amount of tendinopathy in the adjacent subscapularis tendon. Axi llary pouch is thickened with adjacent edema and fluid. Intrasubstance degeneration in the labrum. Th ere are a few small loose bodies towards the axillary pouch which are probably related to the injury. MR/MR shoulder LT wo con* [id number] IMPRESSION: 1. Highly suspicious for inferior glenohumeral ligament complex injury. There is abnormal signal involving the inferior glenohumeral ligament with partial te ar most likely. Adjacent edema with a few small loose bodies in the fluid. The adjacent subscapularis tendon demonstrates tendinopathy. 2. Moderate AC joint arthritis. 3. Small amount of edema superior humeral head. 4. No fractures are identified. 5. Intrasubstance degeneration in the labrum. 6. Thickened axillary pouch.
== END 2022-09-03 06:27 | disposition home or self-care (01) ==
LOC: RAD 06:27
PROVIDERS: PCP Family Medicine; Visit Provider Family Medicine
DX: M75.102 Unspecified rotator cuff tear or rupture of left shoulder, not specified as traumatic (principal); R60.0 Localized edema; M13.812 Other specified arthritis, left shoulder
CPT/HCPCS: 73221

== ENCOUNTER → 2022-09-22 08:21 | Outpatient (BNVA) | payer MEDICARE, OTHER, SELFPAY | PROVIDERS: PCP Family Medicine; Visit Provider Podiatrist Foot & Ankle Surgery | DX: M19.071 Primary osteoarthritis, right ankle and foot (principal); M19.072 Primary osteoarthritis, left ankle and foot; M24.571 Contracture, right ankle; M21.371 Foot drop, right foot | CPT/HCPCS: 99213 ==

== ENCOUNTER 2022-09-29 15:18 | Outpatient (RCR) | payer SELFPAY | END 2022-10-29 23:59 | disposition home or self-care (01) | LOC: CR 15:18 | PROVIDERS: PCP Family Medicine; Referring Provider Internal Medicine Cardiovascular Disease; Visit Provider Internal Medicine Cardiovascular Disease | DX: Z95.5 Presence of coronary angioplasty implant and graft (principal) ==

== ENCOUNTER → 2022-10-04 06:45 | Outpatient (BNVA) | payer MEDICARE, OTHER, SELFPAY | PROVIDERS: PCP Family Medicine; Referring Provider Family Medicine; Visit Provider Student in an Organized Health Care Education/Training Program | DX: S43.432A Superior glenoid labrum lesion of left shoulder, initial encounter (principal); M19.012 Primary osteoarthritis, left shoulder; W01.198A Fall on same level from slipping, tripping and stumbling with subsequent striking against other object, initial encounter | CPT/HCPCS: 99204 ==

== ENCOUNTER → 2022-10-20 09:06 | Outpatient (BNVA) | payer MEDICARE, OTHER, SELFPAY | PROVIDERS: PCP Family Medicine; Visit Provider Podiatrist Foot & Ankle Surgery | DX: M21.371 Foot drop, right foot (principal); M19.071 Primary osteoarthritis, right ankle and foot; M19.072 Primary osteoarthritis, left ankle and foot | CPT/HCPCS: 20550; 73630 ==

== ENCOUNTER → 2022-10-29 09:13 | Outpatient (BNVA) | payer MEDICARE, OTHER, SELFPAY | PROVIDERS: PCP Family Medicine; Visit Provider Student in an Organized Health Care Education/Training Program | DX: M19.012 Primary osteoarthritis, left shoulder (principal); S43.432A Superior glenoid labrum lesion of left shoulder, initial encounter; X58.XXXA Exposure to other specified factors, initial encounter; M24.012 Loose body in left shoulder; M75.102 Unspecified rotator cuff tear or rupture of left shoulder, not specified as traumatic | CPT/HCPCS: 20610; 77002; 99213 ==

== ENCOUNTER → 2022-11-01 08:51 | Outpatient (BNVA) | payer MEDICARE, OTHER, SELFPAY | PROVIDERS: PCP Family Medicine; Visit Provider Family Medicine | DX: I25.10 Atherosclerotic heart disease of native coronary artery without angina pectoris (principal); E78.5 Hyperlipidemia, unspecified; I48.92 Unspecified atrial flutter; E66.01 Morbid (severe) obesity due to excess calories; Z68.41 Body mass index [BMI] 40.0-44.9, adult | CPT/HCPCS: 80053; 80061; 85025 ==

== ENCOUNTER 2022-11-01 13:59 | Outpatient (RCR) | payer SELFPAY | END 2022-11-28 23:59 | disposition home or self-care (01) | LOC: CR 13:59 | PROVIDERS: PCP Family Medicine; Referring Provider Internal Medicine Cardiovascular Disease; Visit Provider Internal Medicine Cardiovascular Disease | DX: Z95.5 Presence of coronary angioplasty implant and graft (principal) | CPT/HCPCS: 80053; 80061; 85025 ==

== ENCOUNTER 2022-12-04 19:58 | Emergency (ER) | payer MEDICARE, OTHER, SELFPAY ==
[2022-12-04 20:08] VITALS: BP 138/87; PULSE 86; RESP 17; TEMP 36.7; O2SAT 97; BMI 48.0
--- NOTE | 2022-12-04 20:57 | XRR_ITS ---
PROCEDURE INFORMATION: Exam: XR Chest Exam date and time: 12/04/2022 10:00 PM Age: 67 years old Clinical indication: Shortness of breath; Additional info: SOB TECHNIQUE: Imaging protocol: Radiologic exam of the chest. Views: 1 view. COMPARISON: CR (CHEST, ) 07/16/2021 9:22 PM FINDINGS: Lungs: Lungs are clear bilaterally. Pleural spaces: No pleural effusion. No pneumothorax. Heart/Mediastinum: The cardiac silhouette and mediastinal contours are unremarkable. Bones/joints: Unremarkable for age. XR/XR chest 1V portable [id number] IMPRESSION: No acute cardiopulmonary process.
--- NOTE | 2022-12-04 20:57 | ECG_ITS ---
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 Measurements Intervals [place] Rate: 83 P: 128 TN: 124 QRS: 103 QRSD: 86 T: 90 QT: 365 QTc: 430 Interpretive Statements SINUS RHYTHM ARM LEADS REVERSED [INVERTED P AND QRS IN I] Compared to ECG 11/22/2020 09:53:10 No significant changes Electronically Signed On 12-05-2022 10:20:52 CDT by Flex Epstein M.D. [id number]
[2022-12-04 21:34] VITALS: BP 183/89; PULSE 80; RESP 13; O2SAT 95
--- NOTE | 2022-12-04 21:45 | ECG_ITS ---
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 Measurements Intervals [place] Rate: 75 P: 60 WA: 141 QRS: 64 QRSD: 90 T: 42 QT: 404 QTc: 453 Interpretive Statements SINUS RHYTHM POSSIBLE LEFT ATRIAL ENLARGEMENT [-0.1mV P-WAVE IN V1/V2] NONSPECIFIC T-WAVE ABNORMALITY Compared to ECG 11/22/2020 09:53:10 T-wave abnormality now present Electronically Signed On 12-05-2022 10:21:42 CDT by Flex Epstein M.D. [id number]
[2022-12-04 22:20] LABS: Basophils # 0.1 10^3/uL (0.0-0.1); Basophils % 0.5 %; Eosinophils # 0.1 10^3/uL (0.0-0.8); Eosinophils % 1.3 %; Hematocrit 42.4 % (37.0-47.0); Hemoglobin 13.9 g/dL (11.5-15.3); Lymphocytes # 2.5 10^3/uL (0.8-4.8); Lymphocytes % 26.4 %; Mean Corpuscular HGB Conc 32.8 g/dL (30.0-36.0); Mean Corpuscular Hemoglobin 32.5 pg (28.0-34.0); Mean Corpuscular Volume 99.1 fl (81-99); Mean Platelet Volume 8.8 fL (7.4-10.4); Monocytes % 10.6 %; Neutrophils # 5.66 10^3/uL (1.8-7.7); Nucleated Red Blood Cells % 0 %; Platelet Count 322 10^3/cmm (130-400); Red Blood Count 4.28 10^6/uL (4.1-5.3); Red Cell Distribution Width 13.6 % (12.1-15.1); White Blood Count 9.3 10^3/uL (4.0-10.0)
[2022-12-04 22:34] LABS: INR 1.24 (0.8-1.2)
[2022-12-04 22:35] LABS: Partial Thromboplastin Time 34.2 SECONDS (23.9-36.7)
[2022-12-04 22:37] LABS: D Dimer <= 0.27 ug/mIFEU (0-0.59)
[2022-12-04 22:43] LABS: Troponin(5th) Baseline 9 ng/L (0-10)
[2022-12-04] MEDS: nitroglycerin 0.4 mg sublingual Tablet SUBLINGUAL (22:46)
[2022-12-04 23:13] LABS: Alanine Aminotransferase 18 U/L (0-33); Albumin Level 4.2 g/dL (3.5-5.2); Alkaline Phosphatase 107 U/L (35-105); Anion Gap 19.8 (5-19); Aspartate Amino Transferase 23 U/L (0-32); Blood Urea Nitrogen 18 mg/dL (8-23); Calcium 9.3 mg/dL (8.5-10.5); Carbon Dioxide 22 mmol/L (22-29); Chloride 100 mmol/L (98-107); Globulin 2.4 g/dL (1.3-4.6); Glomerular Filtration Rate 83.5 mL/min (90-130); Glucose 80 mg/dL (65-115); NT Pro B Type Natriuretic Pept 36 pg/mL (0-125); Osmolality Calculated 287 mOsm/kg (285-295); Potassium 3.8 mmol/L (3.5-5.1); Sodium 138 mmol/L (136-145); Total Bilirubin 0.3 mg/dL (0.15-1.2); Total Protein 6.6 g/dL (6.6-8.7)
[2022-12-05 00:46] VITALS: BP 116/89; PULSE 72; RESP 18; O2SAT 96
[2022-12-05 01:02] LABS: Troponin 5 2HR 8.21 ng/L (0-10)
[2022-12-05 01:41] LABS: Troponin 5 2HR Delta -0.79 ABS# (0-10)
--- NOTE | 2022-12-05 15:46 | ED_ITS ---
HPI - SOB/Dyspnea General: Chief Complaint: Shortness of Breath/Dyspnea Stated Complaint: SOB Time Seen by Provider: 12/04/22 21:11 History of Present Illness: HPI Narrative: 67 year old female with a history of coronary disease. She presents with shortness of breath, and a feeling of general unwellness today. She notes that these symptoms are similar to when she had her prior coronary interventions. She denies significant overt chest discomfort. She feels improved now from prior. She noted that her blood pressure seemed elevated, which is essentially never the case for her. She denies fever cough, increased swelling, or other significant symptoms. PFS ED PFSH: Medical History Anxiety Chronic GERD Coronary artery disease DVT (deep venous thrombosis) Dyspnea on exertion Endometriosis Fatigue Gastric cardia ulcer Hypercholesteremia Hypersomnolence Lichen sclerosus (~2018) Confirmed by biopsy in 2019 Malaise Myocardial infarction (~2020) No pertinent past medical history neghx: dm,thyroid,pe PCP: Dr. Somers Palpitations Spinal stenosis SVT (supraventricular tachycardia) Trigeminal neuralgia Surgical History H/O brain surgery (~2000) mvd for tgn H/O heart artery stent (~05/2021) Dr. Dunn in [place]-- LAD H/O knee surgery Total knee replacement Right--08/23/2017 Total knee replacement Left--05/18/2018 H/O: hysterectomy (~1989) TVH; ovaries spared. Dx with endometriosis History of atrial fibrillation (~02/22/22) cardiac ablation done History of cholecystectomy (~1996) History of lumbar fusion (08/18/16) History of lung surgery (~2004) nodule removal-- benign Family History Brother Heart disease x2 Stroke Brother Hypercholesteremia Grandmother Stroke Maternal Breast cancer Maternal--dx age 60 Father Stroke Heart disease Hypercholesteremia Family/Other Breast cancer Maternal aunt--dx age 37 Mother Colon cancer dx age 60 Denies family history of Ovarian cancer Diabetes Hypertension Uterine cancer Thyroid disease Social History Smoking and tobacco status: former smoker (1989) Quit status (tobacco): has quit using tobacco Year quit tobacco: 1989 Alcohol intake: current Substance/Drug Use: never Course Vital Signs: Vital signs: Vital Signs Temperature 98.1 F 12/04/22 20:08 Pulse Rate 72 12/05/22 00:46 Respiratory Rate 18 12/05/22 00:46 Blood Pressure 116/89 12/05/22 00:46 Pulse Oximetry 96 12/05/22 00:46 Oxygen Delivery Me thod Room Air 12/05/22 00:46 MDM - SOB/Dyspnea Medical Decision Making 67 year old female with a history of coronary disease, and with that history, minimal symptoms with coronary events requiring intervention. She feels improved currently. Her blood pressure was found to be significantly elevated, which was abnormal for her period nitroglycerin sublingual improved both her symptoms and her blood pressure. Her vitals are now stable period CBC is unremarkable. BMP is not remarkable. Troponin level was 9, and eight at 2 hours. BNP is normal. Liver enzymes are not elevated significantly. Chest X-ray is negative. D dimer is non detectable. With improvement in her symptoms, no significant ST changes on EKG, and benign laboratory, she feels much more comfortable going home. We offered outpatient stress testing, but she declined. She has a cardiology follow up later this month which she will keep. She knows to return immediately for any return of or worsening symptoms. As her BP was signficantly elevated at one po int, she will keep close track of her bp over the next few days. Lab Data 12/04/22 22:11 12/04/22 22:11 Labs/Radiology: Radiology Impressions Chest X-Ray 12/04/22 20:57 IMPRESSION: No acute cardiopulmonary process. Laboratory Results WBC 9.3 10^3/uL (4.0-10.0) 12/04/22 22:11 RBC 4.28 10^6/uL (4.1-5.3) 12/04/22 22:11 Hgb 13.9 g/dL (11.5-15.3) 12/04/22 22:11 Hct 42.4 % (37.0-47.0) 12/04/22 22:11 MCV 99.1 fl (81-99) H 12/04/22 22:11 MCH 32.5 pg (28.0-34.0) 12/04/22 22:11 MCHC 32.8 g/dL (30.0-36.0) 12/04/22 22:11 RDW 13.6 % (12.1-15.1) 12/04/22 22:11 Plt Count 322 10^3/cmm (130-400) 12/04/22 22:11 MPV 8.8 fL (7.4-10.4) 12/04/22 22:11 Neut % (Auto) 61.0 % 12/04/22 22:11 Lymph % (Auto) 26.4 % 12/04/22 22:11 [place] % (Auto) 10.6 % 12/04/22 22:11 Eos % (Auto) 1.3 % 12/04/22 22:11 Baso % (Auto) 0.5 % 12/04/22 22:11 Neut # (Auto) 5.66 10^3/uL (1.8-7.7) 12/04/22 22:11 Lymph # (Auto) 2.5 10^3/uL (0.8-4.8) 12/04/22 22:11 [place] # (Auto) 1.0 10^3/uL (0.2-0.9) H 12/04/22 22:11 Eos # (Auto) 0.1 10^3/uL (0.0-0.8) 12/04/22 22:11 Baso # (Auto) 0.1 10^3/uL (0.0-0.1) 12/04/22 22:11 Nucleated RBC % (auto) 0 % 12/04/22 22:11 Nucleated RBCs # 0.0 /100WBC 12/04/22 22:11 PT 16.00 SECONDS (12.1-14.9) H 12/04/22 22:11 INR 1.24 (0.8-1.2) H 12/04/22 22:11 APTT 34.2 SECONDS (23.9-36.7) 12/04/22 22:11 D-Dimer <= 0.27 ug/mIFEU (0-0.59) 12/04/22 22:11 Sodium 138 mmol/L (136-145) 12/04/22 22:11 Potassium 3.8 mmol/L (3.5-5.1) 12/04/22 22:11 Chloride 100 mmol/L (98-107) 12/04/22 22:11 Carbon Dioxide 22 mmol/L (22-29) 12/04/22 22:11 Anion Gap 19.8 (5-19) H 12/04/22 22:11 BUN 18 mg/dL (8-23) 12/04/22 22:11 Creatinine 0.7 mg/dL (0.5-0.9) 12/04/22 22:11 GFR Calculation 83.5 mL/min (90-130) L 12/04/22 22:11 Glucose 80 mg/dL (65-115) 12/04/22 22:11 Calculated Osmolality 287 mOsm/kg (285-295) 12/04/22 22:11 Calcium 9.3 mg/dL (8.5-10.5) 12/04/22 22:11 Total Bilirubin 0.3 mg/dL (0.15-1.2) 12/04/22 22:11 AST 23 U/L (0-32) 12/04/22 22:11 ALT 18 U/L (0-33) 12/04/22 22:11 Alkaline Phosphatase 107 U/L (35-105) H 12/04/22 22:11 Troponin T Baseline 9 ng/L (0-10) 12/04/22 22:11 Troponin T 120 Minute 8.21 ng/L (0-10) 12/05/22 00:39 Delta Troponin T -0.79 ABS# (0-10) L 12/05/22 00:39 NT-Pro-B Natriuret Pep 36 pg/mL (0-125) 12/04/22 22:11 Total Protein 6.6 g/dL (6.6-8.7) 12/04/22 22:11 Albumin 4.2 g/dL (3.5-5.2) 12/04/22 22:11 Globulin 2.4 g/dL (1.3-4.6) 12/04/22 22:11 Discharge Plan Discharge Patient Disposition: Home Clinical Impression: Acute dyspnea, Hypertension Condition: Stable Prescriptions: No Action cholecalciferol (vitamin D3) [Vitamin D3] 25 mcg (1,000 unit) capsule 50 mcg PO DAILY docusate sodium 100 mg capsule 100 mg PO DAILY methocarbamol 500 mg tablet 500 mg PO BID PRN (Reason: spasms) Qty: 60 11RF (DME) AFO brace See Rx Instructions .Route .MEDSUPPLY Qty: 1 0RF Rx Instructions: As directed Praluent Pen 150 mg/mL pen injector 150 mg SUBCUT Q14D Qty: 2 11RF Rx Instructions: inject into abdomen, thigh, or upper arm (deltoid muscle); rotate sites Eliquis 5 mg tablet 5 mg PO BID Qty: 90 3RF B Complex Plus Vitamin C 99-71-93-5-300 mg capsule 1 cap PO DAILY Rx Instructions: give with food (meal/snack) alprazolam [Xanax] 0.5 mg tablet 0.5 mg PO BID PRN (Reason: Anxiety) Qty: 60 5RF clobetasol 0.05 % ointment See Rx Instructions .ROUTE .COMPLEX Qty: 45 1RF Dose Instruction: apply topically TWICE DAILY NEEDED FOR lichen sclerosis Rx Instructions: apply topically TWICE DAILY NEEDED FOR lichen sclerosis pantoprazole 40 mg tablet,delayed release (DR/EC) See Rx Instructions .ROUTE .COMPLEX Qty: 90 3RF Dose Instruction: TAKE 1 TABLET BY MOUTH EVERY DAY Rx Instructions: TAKE 1 TABLET BY MOUTH EVERY DAY tramadol 50 mg tablet 50 mg PO DAILY PRN (Reason: Pain) Qty: 120 5RF Rx Instructions: four times daily as needed oxycodone-acetaminophen 7.5-325 mg tablet 1 tab PO Q6H PRN (Reason: pain) 30 Days Qty: 120 0RF Bioflex 754-76-56-40 mg Tablet 1 tab PO BID multivitamin Tablet 1 tab PO DAILY Discharge Orders: Discharge ED (Routine); Ordered 12/05/22 Ordered By: Tyler Gardner Referrals: Malcolm Somers MD [Primary Care Provider] - 1-3 days Patient Instructions: Dyspnea (ED), Hypertension (ED) Activity Restrictions/Additional Instructions: Continue to check your blood pressure twice daily. Report numbers to your physician, especially if they are elevated. Return immediately for chest discomfort, return of shortness of breath, any other concerning symptoms. See your doctor this week Coding Level of Care Code ED Audio Visual Director for Dianelys Fisher
== END 2022-12-05 02:24 | disposition home or self-care (01) ==
PROVIDERS: Emergency Provider Emergency Medicine; PCP Family Medicine
DX: R06.00 Dyspnea, unspecified (principal); I10 Essential (primary) hypertension; Z79.01 Long term (current) use of anticoagulants; Z87.891 Personal history of nicotine dependence; I25.10 Atherosclerotic heart disease of native coronary artery without angina pectoris; I25.2 Old myocardial infarction
CPT/HCPCS: 36415; 71045; 80053; 83880; 84484; 85025; 85378; 85610; 85730; 93005; 99285

== ENCOUNTER → 2022-12-08 10:42 | Outpatient (BNVA) | payer MEDICARE, OTHER, SELFPAY | PROVIDERS: PCP Family Medicine; Visit Provider Internal Medicine Cardiovascular Disease | DX: I25.10 Atherosclerotic heart disease of native coronary artery without angina pectoris (principal); R06.00 Dyspnea, unspecified; I10 Essential (primary) hypertension; G47.33 Obstructive sleep apnea (adult) (pediatric); I47.1 Supraventricular tachycardia; I48.92 Unspecified atrial flutter; Z79.01 Long term (current) use of anticoagulants; E66.01 Morbid (severe) obesity due to excess calories; Z68.41 Body mass index [BMI] 40.0-44.9, adult; Z87.891 Personal history of nicotine dependence | CPT/HCPCS: 99213 ==

== ENCOUNTER → 2022-12-09 10:18 | Outpatient (BNVA) | payer MEDICARE, OTHER, SELFPAY | PROVIDERS: PCP Family Medicine; Visit Provider Student in an Organized Health Care Education/Training Program | DX: M75.102 Unspecified rotator cuff tear or rupture of left shoulder, not specified as traumatic (principal); M24.012 Loose body in left shoulder; S43.432A Superior glenoid labrum lesion of left shoulder, initial encounter; X58.XXXA Exposure to other specified factors, initial encounter | CPT/HCPCS: 99213 ==

== ENCOUNTER 2022-12-14 09:06 | Observation (INO) | payer MEDICARE, OTHER, SELFPAY ==
[2022-12-14] VITALS (16 sets, daily range): BP systolic 112–162; BP diastolic 58–97; PULSE 54–79; RESP 18–20; TEMP 36.6; O2SAT 94–100; BMI 42.5
--- NOTE | 2022-12-14 06:00 | XACV_ITS ---
Exam Room: [id number] Ht: 163 cm Wt: 112 kg BSA: 2.31 m2 Gender: Female : 1955 Any Known Allergies: Codeine Exam Priority: Routine Procedure(s): Procedure Description: Diagnostic procedure Procedure Description: Left Heart Catheterization Procedure Description: Left ventriculography Procedure Description: Coronary Angiography Jamari JOHANSEN; Diagnostic Cath Status: Elective Diagnostic Findings * The left main is a medium caliber vessel with no significant stenotic lesions. * The left anterior descending artery is a medium caliber, highly tortuous vessel with patent stented segment proximally. The distal artery appears to be wrapping around the apex minimally. No significant stenotic lesions were noted. The first diagonal branch is a relatively small caliber vessel which was found to have an ostial around 50% narrowing.. * Intermedius artery is a medium caliber vessel which was found to have around 30% narrowing in the midsegment. No other significant stenotic lesions were noted. * The left circumflex artery is a medium caliber codominant vessel. The artery was found to be very tortuous proximally. No significant stenotic lesions were noted. * The right coronary artery is a small to medium caliber codominant vessel which was found to have a proximal around 30% segmental narrowing. The distal artery appears to have no significant stenotic lesions. Conclusions 1. Patient with history of coronary artery disease, status post PCI of the proximal LAD, is presenting with complaints of chest pain, shortness of breath and easy fatigability. In view of her ongoing symptoms, in order to further evaluate the coronary status, a cardiac catheterization was recommended. Patient underwent left heart catheterization of the left and right coronary angiogram and LV angiogram today. The findings are as follows.. 2. Normal left main. Patent stented segment in the proximal LAD. Around 50% lesion in the small to medium caliber first diagonal artery near the ostium. Around 30% narrowing in the intermedius artery of the mid segment. Codominant circumflex artery. Small to medium caliber codominant right coronary artery with a 30% proximal segmental narrowing. Normal LV ejection fraction of 55%. LVEDP of 6 mmHg. 3. Patient apparently had some catheter induced spasm at the ostium of the right coronary artery. Diagnostic RX Recommendation: medical therapy and/or counseling LV EDP: 6 mmHg Ventriculography Ejection Fraction: 55.0 % Left Ventriculography Findings: * The LV gram was performed in the DERAS projection. LV cavity appears to be of normal size. LV ejection fraction of 55%. No filling defects were noted. No significant mitral valve prolapse or mitral regurgitation. The LVEDP was 6 mmHg. Pressures Phase:Rest AO : 118 / 88 ( 104 ) @ 8:59:00 AM 135 / 62 ( 92 ) @ 9:07:00 AM 138 / 60 ( 91 ) @ 9:07:00 AM LV : 137 / -11 / 14 @ 9:06:00 AM 129 / -17 / 6 @ 9:07:00 AM 130 / -16 / 6 @ 9:07:00 AM Valves Phase:DefaultPhase AV : 0.0 @ 8:15:45 AM 0.0 @ 8:15:45 AM AV Mean Gradient: 0.0 @ 8:15:45 AM 0.0 @ 8:15:45 AM Clinical Evaluation EBL: 5mL-10mL Procedural Details Procedure Consent Obtained. Pre-Procedure Time Out. Identified patient by full name and date of as verbalized by the patient/guarantor. Does the consent match the physician's order: Yes. Accurate & Complete Informed Consent: Yes. Inpatient/Outpatient History & Physical on Chart: Yes. If H&P is completed, is and addenduem needed: No; If yes, is the addendum complete: N/A. Visualize and Verify Site with Patient/Guarantor: N/A. Relevant Radiology Images available: Yes. Pre-op teaching completed and patient verbalized understanding. The risks, benefits, and alternatives of sedation and/or procedure were discussed by physician. The patient agrees to continue. Procedure started. [facility] Clinical Fraility Score: 3: Managing Well. Supervisor Ovens Indications: Suspected CAD, Dyspnea. Chest Pain Symptom Assessment: Asymptomatic. Correct patient, site and procedure confirmed by cath team. Current diagnosis: SOB. PERRLA. Strong, equal hand feather maker bilaterally. Lungs clear x 5 lobes. IV Site on Arrival: 20 gauge in the right forearm. IV Fluids: 0.9% NaCl at KVO. 0 mL infused prior to biological lab technician. Pre Procedural Pulses: bilateral radial was 1+. Pre Procedural Pulses: bilateral posterior tibial was Doppled. Pre Procedural Pulses: bilateral dorsalis pedis was 2+. Oxygen started at 2liters/min via nasal canula. right groin was prepped with chloroprep then draped in the usual sterile fashion. right radial was prepped with chloroprep then draped in the usual sterile fashion. Physician notified. Baseline sample Acquired. HR: 61 BPM. Physician arrived. Physician scrubbed in. Immediate Pre-Procedure Time Out. Correct Patient: Yes; Correct Procedure: Yes; Correct Site: Yes; Correct Patient Position: Yes; Correct Supplies: Yes; Dried Flammable Prep: Yes; Blood Products Available: No;. Lidocaine 1% infiltrated to the right radial. Arterial access obtained. A 5 brit[place] islander Balwinder catheter in over wire. Admit Source: Out Patient. Multiple views taken of left coronary artery. Catheter redirected to the RCA. Catheter removed over the exchange wire. A 5 [place]rit[place] islander JR4 catheter in over wire. Multiple views taken of right coronary artery. Catheter removed over the exchange wire. A 5 brit[place] islander Angled Pig catheter in over wire. EDP Sample taken: LV 137/-12,14; HR: 58 BPM; SpO2: 100%. LV gram performed in DERAS @ 10 mL/second for a total of 30 mL. EDP Sample taken: LV 129/-18,6; HR: 58 BPM; SpO2: 100%. Pullback taken: LV 130/-17,6; AO 135/62(92); Mean: 0mmHg, Peak to Peak: 0mmHg, SEP: 6sec/min; HR: 58 BPM; SpO2: 100%. Catheter out. Physician scrubbed out. Physician review of cine films. A TR Band was successful obtaining hemostatsis at the Right Radial artery insertion site. Patient's family updated. Post Procedure: Pulses reassessed and unchanged. PERRLA. Strong, equal hand feather maker bilaterally. No VTE prophylaxis required. Medication's Wasted: Nitro = 49.6 mg. Medication's Wasted: Heparin = 1000 u. Medication's Wasted: Lidocaine 1% = 1 mL. Total IV fluids: 43 mL. Post-op diagnosis: Non Obstructive CAD. Complications: none. Estimated blood loss: 5mL-10mL. Responsiveness - Normal response to verbal stimuli; alert and oriented, PERRLA. Airway - Unaffected, no intervention required; spontaneous ventilation. Circulation: W/N/L, pulses unchanged. Nausea/Vomiting: No. Procedure completed. Patient transferred by wheelchair to CPRU. Vital chart was stopped. Access Site Site: Right Radial artery Sheath Size: 6 Fr Hemostasis Method: TR Band Hemostasis Success: Successful Procedure Medications Start: 7:47 AM Stop: 7:47 AM Medication: Versed Amount: 1 mg Route: I.V. Start: 7:48 AM Stop: 7:48 AM Medication: Fentanyl Amount: 50 mcg Route: I.V. Start: 7:50 AM Stop: 7:50 AM Medication: Versed Amount: 1 mg Route: I.V. Start: 7:53 AM Stop: 7:53 AM Medication: Fentanyl Amount: 50 mcg Route: I.V. Start: 7:53 AM Stop: 7:53 AM Medication: Nitrogylcerin Amount: 200 mcg Route: I.A. Start: 7:55 AM Stop: 7:55 AM Medication: Heparin Amount: 5000 units Route: I.V. Start: 8:03 AM Stop: 8:03 AM Medication: Nitrogylcerin Amount: 200 mcg Route: I.A. I, the attending physician, have reviewed and verified all procedure medications. Yes, all medications given per verbal order History/Risk Factors Hypertension: Yes Dyslipidemia: Yes Peripheral Arterial Disease (PAD): No Myocardial Infarction ([place]): Yes Obesity: Yes Renal Disease: No Tobacco Use: Former Prior Interventions PCI: Yes CABG: No Valve Surgery: No Date of PCI: 08/01/2020 Report Signatures Finalized by Dr Lacy Kauffman MD [facility] on 12/15/2022 10:48 AM
[2022-12-14] MEDS: diphenhydrAMINE 50 mg Capsule PO (06:20)
--- NOTE | 2022-12-14 07:44 | W.PM.OPSUD ---
Surgery/Procedure H&P Update DATE OF PROCEDURE: December 14, 2022 DATE H&P PERFORMED: 12/08/22 H&P UPDATE INFORMATION: I have reviewed H&P completed within last 30 days, I have examined patient prior to procedure and No changes to prior documentation PREOP DIAGNOSIS: ASHD PRIMARY INDICATION FOR PROCEDURE: CP/SOB/s/P PCI PLANNED PROCEDURE: Operation Date: 12/14/22 07:00 Proposed Procedures p [facility] w/ w/o 13027 R06.00(Left) - aLcy Kauffman MD PATIENT REASSESSED PRIOR TO SEDATION, WITH NO CHANGE NOTED: Yes PHYSICAL EXAM: alert, oriented x 3, clear to auscultation bilaterally and regular rate & rhythm AIRWAY EVAL/ANESTHESIA PLAN: normal airway, see other exam findings, ASA III, Monitored Anesthesia, Local Anesthesia, Risks, benefits & alternatives of sedation and/or procedure discussed and Patient agrees to continue as planned
--- NOTE | 2022-12-14 08:21 | PC.NURSE ---
Recovery Note Pt arrived post cath to CPRU 4. Pt alert and oriented X 3, breathing even and non-labored on room air. Denies pain at this time. Pt arrived with [address] No bleeding or hematoma noted. Nail beds slightly dusky. Pt denies pain, numbness or tingling to right arm. Will continue to monitor. Pt placed on bedside alarm security or surveillance monitor. Randi Palmer RN called bedside report to ARIEL Purdy.
--- NOTE | 2022-12-14 09:00 | PC.NURSE ---
Patient transferred to cardiac stepdown room 111-1 by w/c to finish post cath recovery. at bedside. TR bands remain in place to right wrist, to signs of bleeding or hematoma. Site checked with earl receiving RN.
[2022-12-14] MEDS: docusate sodium 100 mg Capsule PO (09:38)
[2022-12-14] MEDS: cyanocobalamin 1,000 mcg Tablet 2000 MCG PO (09:38)
[2022-12-14] MEDS: isosorbide mononitrate ER 30 mg Tablet PO (09:38)
[2022-12-14] MEDS: pantoprazole DR 40 mg Tablet PO (09:38)
[2022-12-14] MEDS: multivitamin therapeutic Tablet 1 TAB PO (09:38)
--- NOTE | 2022-12-14 09:58 | PC.NURSE ---
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 Two TR bands on right wrist, no signs of bleeding or hematoma. at bedside.
--- NOTE | 2022-12-14 18:21 | PC.NURSE ---
Patients vitals stable. Patient and given verbal and written discharge instructions, verbalized understanding. IV removed at 18:00, tolerated well. Patient taken out via wheelchair, left facility with at 18:15.
--- NOTE | 2022-12-14 18:43 | PC.NURSE ---
TR band removed at 17:50, No bleeding or hematoma, dressing placed. +3 radial pulse palpated. Patient educated on home care instructions and activity restrictions.
== END 2022-12-14 18:12 | disposition home or self-care (01) ==
LOC: CSU 09:06
PROVIDERS: Admitting Provider Internal Medicine Cardiovascular Disease; PCP Family Medicine; Visit Provider Internal Medicine Cardiovascular Disease
DX: I25.10 Atherosclerotic heart disease of native coronary artery without angina pectoris (principal); R06.00 Dyspnea, unspecified; Z95.5 Presence of coronary angioplasty implant and graft
CPT/HCPCS: 36415; 93458; 96361; 96365; 99152; 99153; C1769; C1887; C1894; G0378; J1644; J2250; J3010; J3490; J7030; Q0163; Q9967

== ENCOUNTER → 2022-12-22 08:24 | Outpatient (BNVA) | payer MEDICARE, OTHER, SELFPAY | PROVIDERS: PCP Family Medicine; Visit Provider Podiatrist Foot & Ankle Surgery | DX: I25.10 Atherosclerotic heart disease of native coronary artery without angina pectoris (principal); E78.5 Hyperlipidemia, unspecified; G47.33 Obstructive sleep apnea (adult) (pediatric); I48.92 Unspecified atrial flutter; I47.1 Supraventricular tachycardia; Z87.891 Personal history of nicotine dependence | CPT/HCPCS: 20600; 99214; J1100; J3301 ==

== ENCOUNTER 2022-12-31 13:59 | Outpatient (RCR) | payer SELFPAY | END 2023-01-28 23:59 | disposition home or self-care (01) | LOC: CR 13:59 | PROVIDERS: PCP Family Medicine; Referring Provider Internal Medicine Cardiovascular Disease; Visit Provider Internal Medicine Cardiovascular Disease | DX: Z95.5 Presence of coronary angioplasty implant and graft (principal) ==

== ENCOUNTER 2023-01-31 13:51 | Outpatient (RCR) | payer SELFPAY | END 2023-02-28 23:59 | disposition home or self-care (01) | LOC: CR 13:51 | PROVIDERS: PCP Family Medicine; Referring Provider Internal Medicine Cardiovascular Disease; Visit Provider Internal Medicine Cardiovascular Disease | DX: Z95.5 Presence of coronary angioplasty implant and graft (principal) ==

== ENCOUNTER 2023-02-14 15:12 | Outpatient (CLI) | payer MEDICARE, OTHER, SELFPAY ==
--- NOTE | 2023-02-14 15:30 | CTR_ITS ---
PROCEDURE INFORMATION: Exam: CT Neck With Contrast Exam date and time: 02/14/2023 3:56 PM Age: 67 years old Clinical indication: Mass, lump, or swelling in neck; Patient HX: Left side neck mass since yesterday-bb; Additional info: Left neck mass TECHNIQUE: Imaging protocol: Computed tomography of the neck with contrast. Radiation optimization: All CT scans at this facility use at least one of these dose optimization techniques: automated exposure control; mA and/or kV adjustment per patient size (includes targeted exams where dose is matched to clinical indication); or iterative reconstruction. Contrast material: OMNI 350; Contrast volume: 95 ml; Contrast route: INTRAVENOUS (IV); REPORTING DATA: Count of CT and Cardiac NM exams in prior 12 months: This patient has received 0 known CTs and 0 known cardiac nuclear medicine studies in the 12 months prior to the current study. COMPARISON: No relevant prior studies available. RADIATION DOSE METRICS: Total DLP (mGy-cm): 160.55 FINDINGS: Pharynx: Unremarkable. No significant tonsillar enlargement. Larynx: Unremarkable. Epiglottis is normal. Prevertebral and retropharyngeal spaces: Unremarkable. Salivary glands: The left submandibular salivary gland is enlarged and hyperenhancing in comparison with the normal right submandibular gland with slight edema of the adjacent fat compatible with acute sialadenitis. No abnormal dilatation of the duct, and no obvious obstructing stone in the duct. Bilateral parotid glands are unremarkable. Thyroid: 1.1 x 0.7 cm hypodense nodule noted superiorly in the left thyroid lobe. No follow-up imaging is recommended (see comment below). Lymph nodes: No lymphadenopathy. Trachea: Visualized trachea is unremarkable. Lungs: 3 mm noncalcified lung nodule noted posteriorly in the apex of the right upper lobe on series 4, image 86. Bones/joints: No acute fracture. No suspicious lytic or sclerotic bone lesions. Soft tissues: Unremarkable. CT/CT neck w con* [id number] IMPRESSION: Acute left submandibular sialadenitis with no evidence of obstructing stone. Incidental 3 mm lung nodule in the right lung apex. As per Fleischner Society 2017 guidelines for follow-up and management of pulmonary nodule smaller than 6 mm: For patients at low risk (minimal or absent history of smoking and of other known risk factors), no routine follow-up. For patient at high risk (history of smoking or of other known risk factors), recommend optional CT at 12 months. COMMENTS: Consistent with the [employer]'s Incidental Findings Committee white paper (J Am Kindra Radiol 2015): In patients aged 35 years and older with an incidental thyroid nodule equal to or greater than 1.[address], MRI or extrathyroidal US, further evaluation with dedicated thyroid US is recommended for patients with normal life expectancy and without comorbidities. For smaller nodules without suspicious features, no further evaluation or follow up is recommended.
[2023-02-14 15:55] LABS: Blood Urea Nitrogen 18 mg/dL (8-23); Glomerular Filtration Rate 62.5 mL/min (90-130)
[2023-02-14] MEDS: iohexol 350 mg/mL 500 mL Btl (per mL) IV (16:07)
== END 2023-02-14 15:13 | disposition home or self-care (01) ==
LOC: RAD 15:16
PROVIDERS: Radiology Neuroradiology; PCP Family Medicine; Visit Provider Emergency Medicine
DX: K11.21 Acute sialoadenitis (principal); R22.1 Localized swelling, mass and lump, neck
CPT/HCPCS: 70491; 82565; 84520; Q9967

== ENCOUNTER → 2023-02-17 07:48 | Outpatient (BNVA) | payer MEDICARE, OTHER, SELFPAY | PROVIDERS: PCP Family Medicine; Visit Provider Podiatrist Foot & Ankle Surgery | DX: M19.071 Primary osteoarthritis, right ankle and foot (principal) | CPT/HCPCS: 20550; 20600; J1100; J3301 ==

== ENCOUNTER 2023-03-01 14:53 | Outpatient (RCR) | payer SELFPAY | END 2023-03-31 23:59 | disposition home or self-care (01) | LOC: CR 14:53 | PROVIDERS: PCP Family Medicine; Referring Provider Internal Medicine Cardiovascular Disease; Visit Provider Internal Medicine Cardiovascular Disease | DX: Z95.5 Presence of coronary angioplasty implant and graft (principal) ==

== ENCOUNTER 2023-04-01 11:34 | Outpatient (RCR) | payer SELFPAY | END 2023-04-30 23:59 | disposition home or self-care (01) | LOC: CR 11:34 | PROVIDERS: PCP Family Medicine; Referring Provider Internal Medicine Cardiovascular Disease; Visit Provider Internal Medicine Cardiovascular Disease | DX: Z95.5 Presence of coronary angioplasty implant and graft (principal) ==

== ENCOUNTER 2023-04-20 13:01 | Outpatient (CLI) | payer MEDICARE, OTHER, SELFPAY ==
--- NOTE | 2023-04-20 13:27 | MM_ITS ---
WS: [id number] BILATERAL SCREENING DIGITAL TOMOSYNTHESIS MAMMOGRAM WITH CAD HISTORY: Z12.31 - Encounter for screening mammogram for malignant ... COMPARISON: 03/03/2022, 02/11/2022 and 02/12/2019 Bilateral CC and MLO views with tomosynthesis and synthetic mammography submitted. Computer aided det ection analyzed. Breast composition: There are scattered areas of fibroglandular density. No suspicious masses, microc alcifications or architectural distortion. Asymmetries and bilateral benign calcifications are stable . IMPRESSION: MM/[place] [id number] BI-RADS: 2-Benign FOLLOW UP: 1 Year Follow-up
== END 2023-04-20 13:02 | disposition home or self-care (01) ==
PROVIDERS: PCP Family Medicine; Visit Provider Nurse Practitioner Women's Health
DX: Z12.31 Encounter for screening mammogram for malignant neoplasm of breast (principal)
CPT/HCPCS: 77063; 77067

== ENCOUNTER 2023-05-02 15:54 | Outpatient (RCR) | payer SELFPAY | END 2023-05-31 23:59 | disposition home or self-care (01) | LOC: CR 15:54 | PROVIDERS: PCP Family Medicine; Referring Provider Internal Medicine Cardiovascular Disease; Visit Provider Internal Medicine Cardiovascular Disease | DX: Z95.5 Presence of coronary angioplasty implant and graft (principal) ==

== ENCOUNTER → 2023-05-19 08:49 | Outpatient (BNVA) | payer MEDICARE, OTHER, SELFPAY | PROVIDERS: PCP Family Medicine; Visit Provider Podiatrist Foot & Ankle Surgery | DX: M79.671 Pain in right foot (principal); M19.079 Primary osteoarthritis, unspecified ankle and foot | CPT/HCPCS: 20600; 73630 ==

== ENCOUNTER 2023-06-02 12:35 | Outpatient (RCR) | payer SELFPAY | END 2023-06-30 23:59 | disposition home or self-care (01) | LOC: CR 12:35 | PROVIDERS: PCP Family Medicine; Referring Provider Internal Medicine Cardiovascular Disease; Visit Provider Internal Medicine Cardiovascular Disease | DX: Z95.5 Presence of coronary angioplasty implant and graft (principal) ==

== ENCOUNTER → 2023-06-14 09:44 | Outpatient (BNVA) | payer MEDICARE, OTHER, SELFPAY | PROVIDERS: PCP Family Medicine; Visit Provider Family Medicine | DX: E66.01 Morbid (severe) obesity due to excess calories (principal); Z68.41 Body mass index [BMI] 40.0-44.9, adult; I25.10 Atherosclerotic heart disease of native coronary artery without angina pectoris; E78.5 Hyperlipidemia, unspecified; I48.92 Unspecified atrial flutter | CPT/HCPCS: 80053; 80061; 85025 ==

== ENCOUNTER 2023-08-02 10:20 | Outpatient (RCR) | payer SELFPAY | END 2023-08-31 23:59 | disposition home or self-care (01) | LOC: CR 10:20 | PROVIDERS: PCP Family Medicine; Referring Provider Internal Medicine Cardiovascular Disease; Visit Provider Internal Medicine Cardiovascular Disease | DX: Z95.5 Presence of coronary angioplasty implant and graft (principal) ==

== ENCOUNTER → 2023-08-09 07:28 | Outpatient (BNVA) | payer MEDICARE, OTHER, SELFPAY | PROVIDERS: PCP Family Medicine; Visit Provider Podiatrist Foot & Ankle Surgery | DX: M24.571 Contracture, right ankle (principal); M19.071 Primary osteoarthritis, right ankle and foot | CPT/HCPCS: 20600 ==

== ENCOUNTER 2023-09-01 11:32 | Outpatient (RCR) | payer SELFPAY | END 2023-09-29 23:59 | disposition home or self-care (01) | LOC: CR 11:32 | PROVIDERS: PCP Family Medicine; Referring Provider Internal Medicine Cardiovascular Disease; Visit Provider Internal Medicine Cardiovascular Disease | DX: Z95.5 Presence of coronary angioplasty implant and graft (principal) ==

== ENCOUNTER → 2023-09-20 09:43 | Outpatient (BNVA) | payer MEDICARE, OTHER, SELFPAY | PROVIDERS: PCP Family Medicine; Visit Provider Podiatrist Foot & Ankle Surgery | DX: M19.071 Primary osteoarthritis, right ankle and foot | CPT/HCPCS: 99213 ==

== ENCOUNTER 2023-09-30 12:29 | Outpatient (RCR) | payer SELFPAY | END 2023-10-30 23:59 | disposition home or self-care (01) | LOC: CR 12:29 | PROVIDERS: PCP Family Medicine; Referring Provider Internal Medicine Cardiovascular Disease; Visit Provider Internal Medicine Cardiovascular Disease | DX: Z95.5 Presence of coronary angioplasty implant and graft (principal) ==

== ENCOUNTER → 2023-10-11 10:53 | Outpatient (BNVA) | payer MEDICARE, OTHER, SELFPAY | PROVIDERS: PCP Family Medicine; Visit Provider Nurse Practitioner Family | DX: J02.9 Acute pharyngitis, unspecified (principal); J06.9 Acute upper respiratory infection, unspecified | CPT/HCPCS: 87400; 87880 ==

== ENCOUNTER → 2023-12-12 14:33 | Outpatient (BNVA) | payer MEDICARE, OTHER, SELFPAY | PROVIDERS: PCP Family Medicine; Visit Provider Internal Medicine Cardiovascular Disease | DX: I48.92 Unspecified atrial flutter (principal); I25.10 Atherosclerotic heart disease of native coronary artery without angina pectoris; E78.5 Hyperlipidemia, unspecified; Z87.891 Personal history of nicotine dependence; Z79.01 Long term (current) use of anticoagulants | CPT/HCPCS: 99214 ==

== ENCOUNTER 2024-01-30 15:14 | Outpatient (RCR) | payer SELFPAY | END 2024-02-29 23:59 | disposition home or self-care (01) | LOC: CR 15:14 | PROVIDERS: PCP Family Medicine; Referring Provider Internal Medicine Cardiovascular Disease; Visit Provider Internal Medicine Cardiovascular Disease | DX: Z95.5 Presence of coronary angioplasty implant and graft (principal) ==

== ENCOUNTER → 2024-02-14 07:44 | Outpatient (BNVA) | payer MEDICARE, OTHER, SELFPAY | PROVIDERS: PCP Family Medicine; Visit Provider Podiatrist Foot & Ankle Surgery | DX: M19.071 Primary osteoarthritis, right ankle and foot | CPT/HCPCS: 20550; J1100; J3301 ==

== ENCOUNTER 2024-03-01 10:16 | Outpatient (RCR) | payer SELFPAY | END 2024-04-05 09:02 | disposition home or self-care (01) | LOC: CR 10:16 | PROVIDERS: PCP Family Medicine; Referring Provider Internal Medicine Cardiovascular Disease; Visit Provider Internal Medicine Cardiovascular Disease | DX: Z95.5 Presence of coronary angioplasty implant and graft (principal) ==

== ENCOUNTER 2024-04-04 12:10 | Outpatient (RCR) | payer SELFPAY | END 2024-04-30 23:59 | disposition home or self-care (01) | LOC: CR 12:10 | PROVIDERS: PCP Family Medicine; Referring Provider Internal Medicine Cardiovascular Disease; Visit Provider Internal Medicine Cardiovascular Disease | DX: Z95.5 Presence of coronary angioplasty implant and graft (principal) ==

== ENCOUNTER 2024-04-06 07:10 | Inpatient (IN) | payer MEDICARE, OTHER, SELFPAY ==
[2024-04-06] VITALS (11 sets, daily range): BP systolic 119–178; BP diastolic 75–91; PULSE 57–80; RESP 16–20; TEMP 36.4–36.6; O2SAT 95–98
--- NOTE | 2024-04-06 07:27 | W.ED.NEUROSD ---
HPI - Neuro Symptoms/Deficit General: Chief Complaint: Weakness Stated Complaint: weakness & ams Time Seen by Provider: 04/06/24 07:19 History of Present Illness: 60-year-old female brought in with her complaining of sudden onset of right sided weakness right-sided facial droop confusion difficulty with forming words around 6:30 AM today. Patient is already beginning to improve her words finding enunciation issues have resolved. She is on Eliquis for atrial fibrillation she denies any difficulty with vision or swallowing. She has noted that she has had a difficult time walking due to the weakness on her right side. No nausea vomiting Associated symptoms: Deny chest pain Related Data Home Medications Medication Instructions Recorded Confirmed multivitamin 1 tab PO DAILY 11/21/20 04/06/24 docusate sodium 100 mg capsule 100 mg PO DAILY 03/16/21 04/06/24 vitamin B comp and C no.3 15 mg-10 1 cap PO DAILY 10/04/22 04/06/24 mg-50 mg-5 mg-300 mg capsule (B Complex Plus Vitamin C) aspirin 81 mg tablet,delayed 81 mg PO DAILY 04/06/24 04/06/24 release pantoprazole 40 mg tablet,delayed 40 mg PO DAILY 04/06/24 04/06/24 release tramadol 50 mg tablet 50 mg PO QID PRN Pain 04/06/24 04/06/24 Previous Rx's Medication Instructions Recorded AFO brace #1 ea 08/11/22 apixaban 5 mg tablet (Eliquis) 5 mg PO BID #180 tabs 07/14/23 isosorbide dinitrate 5 mg tablet See Rx Instructions .Route 07/22/23 .COMPLEX #180 tabs AFO modification #1 ea 08/09/23 alirocumab 150 mg/mL subcutaneous 150 mg SUBCUT Q14D #2 mL 11/16/23 pen injector (Praluent Pen) baclofen 10 mg tablet 10 mg PO TID PRN spasms #60 tabs 01/04/24 alprazolam 0.5 mg tablet (Xanax) 0.5 mg PO BID PRN Anxiety #60 tabs 02/27/24 oxycodone-acetaminophen 7.5 mg-325 1 tab PO Q6H PRN pain 1 month #60 03/30/24 mg tablet tabs clobetasol 0.05 % topical ointment See Rx Instructions .Route 04/04/24 .COMPLEX #45 grams Allergies Allergy/AdvReac Type Severity Reaction Status Date / Time ezetimibe [From Zetia] Allergy Severe unknown Verified 04/04/24 11:36 red yeast rice Allergy Severe unknown Verified 04/04/24 11:36 Djimadg-OMX-ZwU Reductase Allergy Severe unknown Verified 04/04/24 11:36 Inhibitor [Ohhffni-Evf-Mpo Reductase Inhibitor] escitalopram [From Lexapro] Allergy Intermediate unknown Verified 04/04/24 11:36 gabapentin Allergy Intermediate unknown Verified 04/04/24 11:36 sulfamethoxazole Allergy Intermediate unknown Verified 04/04/24 11:36 [From Bactrim] trimethoprim [From Bactrim] Allergy Intermediate unknown Verified 04/04/24 11:36 codeine Allergy Unknown Verified 04/04/24 11:36 Penicillins Allergy Unknown Verified 04/04/24 11:36 prochlorperazine Allergy Unknown Verified 04/04/24 11:36 [From Compazine] simvastatin Allergy unknown Verified 04/04/24 11:36 Sulfa (Sulfonamide Allergy Unknown Verified 04/04/24 11:36 Antibiotics) verapamil Allergy unknown Verified 04/04/24 11:36 Review of Systems Const: Denies: fever(s) or chills Card: Denies: chest pain Resp: Denies: dyspnea GI: Denies: abdominal pain : Denies: dysuria, urinary frequency or urinary urgency Musc: Denies: neck pain or back pain Skin/Breast: Denies: rash PFSH ED PFSH: Medical History Perforated tympanic membrane of both ears on examination URI with cough and congestion Acute otitis media, bilateral Knee osteoarthritis Anticoagulation adequate with anticoagulant therapy Coronary artery disease Lichen sclerosus (~2018) Confirmed by biopsy in 2019 Myocardial infarction (~2020) No pertinent past medical history neghx: dm,thyroid,pe PCP: Dr. Somers Hypersomnolence Malaise Fatigue Gastric cardia ulcer Endometriosis Trigeminal neuralgia Dyspnea on exertion Palpitations Anxiety Chronic GERD Hypercholesteremia Spinal stenosis SVT (supraventricular tachycardia) DVT (deep venous thrombosis) Surgical History H/O heart artery stent (~05/2021) Dr. Dunn in [place]-- LAD History of atrial fibrillation (~02/22/22) cardiac ablation done History of lung surgery (~2004) nodule removal-- benign H/O brain surgery (~2000) mvd for tgn History of cholecystectomy (~1996) H/O: hysterectomy (~1989) TVH; ovaries spared. Dx with endometriosis H/O knee surgery Total knee replacement Right--08/23/2017 Total knee replacement Left--05/18/2018 History of lumbar fusion (08/18/16) Family History Brother Heart disease x2 Stroke Brother Hypercholesteremia Grandmother Stroke Maternal Breast cancer Maternal--dx age 60 Father Stroke Heart disease Hypercholesteremia Family/Other Breast cancer Maternal aunt--dx age 37 Mother Colon cancer dx age 60 Denies family history of Ovarian cancer Diabetes Hypertension Uterine cancer Thyroid disease NIH stroke score NIHSS: Level Of Consciousness - 1a: 0 Level Of Consciousness Questions - 1b: Both Correct Level Of Consciousness Commands - 1c: Both Correct Best Gaze - 2: Normal Visual Johnson - 3: No Visual Loss Facial Palsy - 4: Minor Paralysis Motor Arm Right - 5: Drift Motor Arm Left - 5: No Drift Motor Leg Right - 6: Drift Motor Leg Left - 6: No Drift Limb Ataxia - 7: Present In One Limb Sensory - 8: Normal Best Language - 9: No Aphasia Dysarthia - 10: Normal Extinction And Inattention - 11: 0 Score: Total Score: 4 Physical Exam Const: COMMON NORMALS: no acute distress GENERAL APPEARANCE: cooperative and comfortable ORIENTATION/CONSCIOUSNESS: Yes awake, Yes oriented to person, Yes oriented to place and Yes oriented to time HENMT: COMMON NORMALS: normocephalic, atraumatic and hearing grossly normal bilaterally HEAD & SCALP: normocephalic and atraumatic Resp: COMMON NORMALS: normal respiratory effort, No retractions, No use of accessory muscles and clear to auscultation bilaterally AUSCULTATION: clear to auscultation bilaterally Cardio: COMMON NORMALS: regular rate, regular rhythm and No murmurs present (Cardio) RATE: regular rate RHYTHM: regular rhythm GI: COMMON NORMALS: Soft to palpation and No hepatosplenomegaly present AUSCULTATION: Yes normoactive bowel sounds PALPATION: Yes Soft to palpation, No Tenderness to palpation present (GI), No Guarding due to palpation present (GI) and Yes No hepatosplenomegaly present Extremity: COMMON NORMALS: normal to inspection, capillary refill normal, no clubbing, cyanosis or edema, no calf tenderness and no pedal edema Neuro: SENSORIUM/ORIENTATION: Yes oriented to person, Yes oriented to place and Yes oriented to time Skin: COMMON NORMALS: no rashes or lesions noted GENERAL SKIN EXAM: no rashes or lesions noted Course Vital Signs: Vital signs: Vital Signs Temperature 97.8 F 04/06/24 09:40 Pulse Rate 60 04/06/24 09:40 Respiratory Rate 16 04/06/24 09:05 Blood Pressure 147/88 04/06/24 09:40 Pulse Oximetry 98 04/06/24 09:40 Oxygen Delivery Me thod Room Air 04/06/24 09:05 MDM - Neuro Symptoms/Deficit Medical Decision Making Initial evaluation patient had a stroke score of 4 her description of symptoms earlier suspect she may have been as high as 5 or 6. She is already beginning to improve. She is not a candidate for thrombolytics because she has not Eliquis. She does not have a high enough score for evaluation for embolectomy. She does continue to improve. Dr. Melo seen the patient and concurred her stroke score was 3 she did begin to show some improvement from when I had seen her about [address] of the head is negative. Will admit the patient for acute CVA. Discussed Dr. Melo recommends a CTA head and neck because she has a history of atrial fibrillation make sure she does not have an embolism that is partially occluding which might actually change course of care. CTA did not show any large vessel embolism. Discussed with hospitalist orders written. Medical Records I reviewed the patient's medical records. Lab Data I reviewed the patient's lab results. 04/06/24 07:42 04/06/24 07:[address] 04/06/24 07:32 IMPRESSION: No acute intracranial abnormality. ASSESSMENT: ASPECTS ([place] Stroke Program Early CT Score) is 10. Head/Neck CTA 04/06/24 08:03 IMPRESSION: 1. No high-grade cervical carotid artery stenosis. Calcified plaque at the bifurcations resulting in mild stenosis, less than 50%. 2. Calcified plaque in the distal intracranial carotid arteries but no occlusion. 3. Middle cerebral arteries are patent. No thrombus or clot identified. Laboratory Results WBC 6.92 10^3/uL (3.29-11.43) 04/06/24 07:42 RBC 4.28 10^6/uL (3.85-5.65) 04/06/24 07:42 Hgb 13.90 g/dL (11.27-16.99) 04/06/24 07:42 Hct 41.7 % (36-47) 04/06/24 07:42 MCV 97.4 fl (85-98) 04/06/24 07:42 MCH 32.5 pg (27-33) 04/06/24 07:42 MCHC 33.3 g/dL (30-55) 04/06/24 07:42 RDW 13.5 % (12.1-15.1) 04/06/24 07:42 Plt Count 255 10^3/cmm (157-399) 04/06/24 07:42 MPV 8.7 fL (7.4-10.4) 04/06/24 07:42 Neut % (Auto) 47.1 % 04/06/24 07:42 Lymph % (Auto) 37.1 % 04/06/24 07:42 [place] % (Auto) 10.3 % 04/06/24 07:42 Eos % (Auto) 4.6 % 04/06/24 07:42 Baso % (Auto) 0.6 % 04/06/24 07:42 Neut # (Auto) 3.26 10^3/uL (1.8-7.7) 04/06/24 07:42 Lymph # (Auto) 2.6 10^3/uL (0.8-4.8) 04/06/24 07:42 [place] # (Auto) 0.7 10^3/uL (0.2-0.9) 04/06/24 07:42 Eos # (Auto) 0.3 10^3/uL (0.0-0.8) 04/06/24 07:42 Baso # (Auto) 0.0 10^3/uL (0.0-0.1) 04/06/24 07:42 Nucleated RBC % (auto) 0 % 04/06/24 07:42 Nucleated RBCs # 0.0 /100WBC 04/06/24 07:42 PT 15.60 SECONDS (12.1-14.9) H 04/06/24 07:42 INR 1.20 (0.8-1.2) 04/06/24 07:42 APTT 31.1 SECONDS (23.9-36.7) 04/06/24 07:42 Sodium 141 mmol/L (136-145) 04/06/24 07:42 Potassium 4.0 mmol/L (3.5-5.1) 04/06/24 07:42 Chloride 105 mmol/L (98-107) 04/06/24 07:42 Carbon Dioxide 24 mmol/L (22-29) 04/06/24 07:42 Anion Gap 16.0 (5-19) 04/06/24 07:42 BUN 16 mg/dL (8-23) 04/06/24 07:42 Creatinine 0.7 mg/dL (0.5-0.9) 04/06/24 07:42 GFR Calculation 83.2 mL/min (90-130) L 04/06/24 07:42 Glucose 98 mg/dL (65-115) 04/06/24 07:42 POC Glucose 92 mg/dL (70-110) 04/06/24 07:24 Estimat Average Glucose 108 04/06/24 07:42 Hemoglobin A1c 5.4 % (4.0-6.0) 04/06/24 07:42 Calculated Osmolality 293 mOsm/kg (285-295) 04/06/24 07:42 Calcium 8.6 mg/dL (8.5-10.5) 04/06/24 07:42 Total Bilirubin 0.7 mg/dL (0.15-1.2) 04/06/24 07:42 AST 19 U/L (0-32) 04/06/24 07:42 ALT 15 U/L (0-33) 04/06/24 07:42 Alkaline Phosphatase 100 U/L (35-105) 04/06/24 07:42 Total Protein 6.8 g/dL (6.6-8.7) 04/06/24 07:42 Albumin 3.9 g/dL (3.5-5.2) 04/06/24 07:42 Globulin 2.9 g/dL (1.3-4.6) 04/06/24 07:42 All radiology interpretation(s) finalized by discharge Discharge Plan Discharge Patient Disposition: Admitted As Inpatient Admit Provider: Ann Marie Jacome Clinical Impression: Acute CVA (cerebrovascular accident), Current use of intermediate anticoagulation, Atrial fibrillation Condition: Stable Coding Level of Care Code ED Embedded Engineer for Dianelys Fisher
[2024-04-06 07:29] LABS: Glucose Point of Care 92 mg/dL (70-110)
--- NOTE | 2024-04-06 07:32 | CTR_ITS ---
PROCEDURE INFORMATION: Exam: CT Head Without Contrast Exam date and time: 04/06/2024 7:25 AM Age: 68 years old Clinical indication: Stroke-like symptoms; RT upper extremity and RT lower extremity weakness; Additional info: AMS, stroke alert TECHNIQUE: Imaging protocol: Computed tomography of the head without contrast. Radiation optimization: All CT scans at this facility use at least one of these dose optimization techniques: automated exposure control; mA and/or kV adjustment per patient size (includes targeted exams where dose is matched to clinical indication); or iterative reconstruction. Other technique: STROKE PROTOCOL was implemented. COMPARISON: CT neck w con* [id number] 02/14/2023 3:56 PM RADIATION DOSE METRICS: Total DLP (mGy-cm): 1126.68 FINDINGS: Brain: No hemorrhage. Unremarkable white matter. No mass effect. Cerebral ventricles: No ventriculomegaly. Paranasal sinuses: Visualized sinuses are unremarkable. No fluid levels. Mastoid air cells: Visualized mastoid air cells are well aerated. Bones: Unremarkable. No acute fracture. Soft tissues: Unremarkable. CT/CT head thrombolytic [id number] IMPRESSION: No acute intracranial abnormality. ASSESSMENT: ASPECTS ([place] Stroke Program Early CT Score) is 10.
--- NOTE | 2024-04-06 07:34 | ECG_ITS ---
[facility] Test Date: 2024-04-06 Pat Name: Nathan Barraza Department: Room: Gender: Female Heel Shaver: : 1955 Requested By: Scott Etienne Order Number: [id number] [place] MD: Lacy Kauffman M.D. Measurements Intervals [place] Rate: 71 P: 51 RI: 147 QRS: 57 QRSD: 84 T: 44 QT: 391 QTc: 427 Interpretive Statements SINUS RHYTHM POSSIBLE LEFT ATRIAL ENLARGEMENT [-0.1mV P-WAVE IN V1/V2] Compared to ECG 12/04/2022 21:45:58 T-wave abnormality no longer present Electronically Signed On 04-06-2024 17:01:40 CDT by Lacy Kauffman M.D. [email or web address] [email or web address] health woman's hospitalAdvanced [email or web address] Systemskettering health [id number]
[2024-04-06 07:54] LABS: Basophils % 0.6 %; Eosinophils # 0.3 10^3/uL (0.0-0.8); Eosinophils % 4.6 %; Hematocrit 41.7 % (36-47); Lymphocytes # 2.6 10^3/uL (0.8-4.8); Lymphocytes % 37.1 %; Mean Corpuscular HGB Conc 33.3 g/dL (30-55); Mean Corpuscular Hemoglobin 32.5 pg (27-33); Mean Corpuscular Volume 97.4 fl (85-98); Mean Platelet Volume 8.7 fL (7.4-10.4); Monocytes # 0.7 10^3/uL (0.2-0.9); Monocytes % 10.3 %; Neutrophils # 3.26 10^3/uL (1.8-7.7); Neutrophils % 47.1 %; Nucleated Red Blood Cells % 0 %; Platelet Count 255 10^3/cmm (157-399); Red Blood Count 4.28 10^6/uL (3.85-5.65); Red Cell Distribution Width 13.5 % (12.1-15.1); White Blood Count 6.92 10^3/uL (3.29-11.43)
--- NOTE | 2024-04-06 08:03 | CT_ITS ---
WS: [id number] CT ANGIOGRAM CEREBRAL AND CAROTID ARTERIES HISTORY: CVA TECHNIQUE: CT angiogram is performed of the carotid and cerebral arteries. During arterial injection imaging is obtained from the skull vertex to the aortic arch in 1.25 mm imaging. Coronal and sagittal reformats are submitted. Additional multi planar reformats of the carotid and cerebral arteries are submitted, MIP imaging also reviewed. NASCET criteria utilized. [facility] at least one of these dose optimization techniques: automated exposure control; mA and/or kV adjust ment per patient size (includes targeted exams where dose is matched to clinical indication); or iter ative reconstruction. CONTRAST: Omnipaque 350; 100 mL IV. DLP: 506.20 mGy.cm COMPARISON: Noncontrast CT head 04/06/2024 Carotid Angiogram: Right carotid: Common carotid artery: Arises normally from the innominate artery. No significant plaque or stenosis. Internal carotid artery: Increasing plaque towards the bifurcation. Stenosis less than 50%. External carotid artery: Patent. Left carotid: Common carotid artery: Portions of the proximal common carotid artery obscured by the contrast inject ion through the LEFT upper extremity. Internal carotid artery: Focal calcified plaque at the bifurcation. Stenosis estimated at less than 5 0%. External carotid artery: Patent. Right vertebral artery: Unremarkable. Left vertebral artery: Short segment of the proximal LEFT vertebral artery is obscured by injection o f the contrast to the LEFT upper extremity. Subclavian arteries: Negative RIGHT subclavian artery. Limited evaluation of the LEFT subclavian toni ry. There is artifact extending through the artery proximally. Upper thorax: Tiny micronodules in the upper lung [place]. Thyroid gland: Subcentimeter bilateral thyroid nodules. Osseous structures: Mild cervical spondylosis. CEREBRAL ANGIOGRAM: Intracranial vertebral arteries: Normal with no significant atherosclerosis. Basilar artery: No significant stenosis or occlusion. No aneurysm. Intracranial Internal carotid arteries: Scattered plaque through the distal carotid arteries but no o cclusion. Stenosis less than 50%. Middle cerebral arteries: Normal. No thrombus or occlusion in the M1 or M2 segments. No paucity of ve ssels distally. Anterior cerebral arteries and ACOM: Normal. Posterior cerebral arteries and PCOM's: Normal. Dural venous sinuses are normally enhancing. Mastoid air cells: Normal. Paranasal sinuses: Normal. Calvarium: Normal. CT/CT angio headneck* [id number] IMPRESSION: 1. No high-grade cervical carotid artery stenosis. Calcified plaque at the bif urcations resulting in mild stenosis, less than 50%. 2. Calcified plaque in the distal intracranial carotid arteries but no occlusi on. 3. Middle cerebral arteries are patent. No thrombus or clot identified.
[2024-04-06 08:04] LABS: Alanine Aminotransferase 15 U/L (0-33); Albumin Level 3.9 g/dL (3.5-5.2); Alkaline Phosphatase 100 U/L (35-105); Aspartate Amino Transferase 19 U/L (0-32); Blood Urea Nitrogen 16 mg/dL (8-23); Calcium 8.6 mg/dL (8.5-10.5); Carbon Dioxide 24 mmol/L (22-29); Chloride 105 mmol/L (98-107); Creatinine Clr Calc Pharmacy 81.3306; Globulin 2.9 g/dL (1.3-4.6); Glomerular Filtration Rate 83.2 mL/min (90-130); Glucose 98 mg/dL (65-115); Osmolality Calculated 293 mOsm/kg (285-295); Sodium 141 mmol/L (136-145); Total Bilirubin 0.7 mg/dL (0.15-1.2); Total Protein 6.8 g/dL (6.6-8.7)
[2024-04-06 08:11] LABS: Partial Thromboplastin Time 31.1 SECONDS (23.9-36.7)
--- NOTE | 2024-04-06 08:16 | P.CONIM_ITS ---
Providers/Reason For Consult 2 Consulting Physician/Specialty*: Carlyle Melo MD neurology and epilepsy Reason for Consult*: Code stroke/acute care emergency department room #13 Primary Care Provider: Malcolm Somers MD History of Present Illness History of Present Illness Nathan Barraza is a 68 year old female with a history of atrial fibrillation treated with Eliquis, status post cardiac ablation surgery, right trigeminal nerve decompression 2001 and right foot drop. The patient was at home with her . According to the patient she and her woke up around 5 AM on 04/06/2024. Around 6:30 AM 04/06/2024 the patient was witnessed by her to display for acute on onset of balance difficulty and veering to the right as well as some questionable confusion. The patient denied dizziness. As a result the patient was brought to [facility] emergency department. Code stroke initiated at 7:24 AM on 04/06/2024. NIH score performed by Dr. Peterson =4 NIH score performed by neurology, Dr. Melo =3(secondary to mild right lower weakness =1, drift in the right upper extremity =1, drift in the right lower extremity = 1). Glucose 98 thrombolytic Stat noncontrast head CT 04/06/2024 revealed no acute findings. Although the patient's last known well was 6:30 AM on 04/06/2024 and code stroke was initiated at 7:24 AM, the patient is on Eliquis and low-dose aspirin for atrial fibrillation and therefore the patient was not a candidate for intravenous thrombolytics and no intravenous thrombolytics were administered. After further discussion with Dr. Peterson we both agreed patient should undergo CT angiogram of the head and neck to assess for thrombus. The patient and the patient's who was present at the bedside and emergency department room #13 agreed with this plan. The patient is not on antilipid lowering agent secondary to reports of allergies to the medications. Drug allergies: Red yeast rice type reaction unknown Statins/HMG/CoA reductase inhibitors type reaction unknown Lexapro type reaction unknown Neurontin type reaction unknown Bactrim type reaction unknown Codeine type reaction unknown Penicillins type reaction unknown Compazine type reaction unknown SIM Avastin type reaction unknown Sulfa (sulfonamide antibiotics) type reaction unknown Verapamil type reaction unknown Current medications: Eliquis 5 mg p.o. twice daily for atrial fibrillation Aspirin 81 mg p.o. daily Alirocumab 150 mg subcutaneously every 14 days Xanax 0.5 mg tablet 1 p.o. twice daily as needed Baclofen 10 mg p.o. 3 times daily as needed Clobetasol 0.05% topical ointment to use as directed Colace 100 mg p.o. daily Isosorbide dinitrate 5 mg tablet to use as directed Multivitamin 1 p.o. daily Oxycodone 7.5 mg / 325 mg tablets 1 p.o. every 6 hours as needed pain Pantoprazole 40 mg p.o. daily Tramadol 50 mg p.o. daily, as needed Vitamin B and vitamin C complex 1 p.o. daily Past medical history: Atrial fibrillation status post ablation surgery treated with Eliquis Right trigeminal nerve decompression 2000 Right foot drop Otitis media Perforated tympanic membranes of both ears Prinzmetal angina Anticoagulation therapy for atrial fibrillation Acromioclavicular joint arthritis Left rotator cuff syndrome Coronary artery disease Spinal stenosis Dyslipidemia Obstructive sleep apnea Habits: The patient reports that she smoked but quit 35 years ago. Patient denied other drug use. Family history: Remarkable for a father who experienced a stroke and had heart disease Remarkable for 2 brothers and paternal uncle with heart disease Social history: Patient lives with her Review of Systems 2 General: Reports: 10 or more systems reviewed and unremarkable except in HPI and below Medications/Allergies Home Medications Medication Instructions Recorded Confirmed Last Taken Type multivitamin 1 tab PO DAILY 11/21/20 04/04/24 12/13/22 06:30 History docusate sodium 100 mg capsule 100 mg PO DAILY 03/16/21 04/04/24 12/13/22 06:30 History AFO brace #1 ea 08/11/22 04/04/24 Unknown Rx vitamin B comp and C no.3 15 mg-10 1 cap PO DAILY 10/04/22 04/04/24 12/13/22 06:30 History mg-50 mg-5 mg-300 mg capsule (B Complex Plus Vitamin C) aspirin 81 mg capsule 81 mg PO DAILY 12/13/22 04/04/24 12/14/22 04:00 History apixaban 5 mg tablet (Eliquis) 5 mg PO BID #180 tabs 07/14/23 04/04/24 Unknown Rx isosorbide dinitrate 5 mg tablet See Rx Instructions .Route 07/22/23 04/04/24 Unknown Rx .COMPLEX #180 tabs AFO modification #1 ea 08/09/23 04/04/24 Unknown Rx alirocumab 150 mg/mL subcutaneous 150 mg SUBCUT Q14D #2 mL 11/16/23 04/04/24 Unknown Rx pen injector (Praluent Pen) baclofen 10 mg tablet 10 mg PO TID PRN spasms #60 tabs 01/04/24 04/04/24 Unknown Rx pantoprazole 40 mg tablet,delayed See Rx Instructions .Route 02/09/24 04/04/24 Unknown Rx release .COMPLEX #90 tabs tramadol 50 mg tablet 50 mg PO DAILY PRN Pain #120 tabs 02/09/24 04/04/24 Unknown Rx alprazolam 0.5 mg tablet (Xanax) 0.5 mg PO BID PRN Anxiety #60 tabs 02/27/24 04/04/24 Unknown Rx oxycodone-acetaminophen 7.5 mg-325 1 tab PO Q6H PRN pain 1 month #60 03/30/24 04/04/24 Unknown Rx mg tablet tabs clobetasol 0.05 % topical ointment See Rx Instructions .Route 04/04/24 04/04/24 Unknown Rx .COMPLEX #45 grams Allergies Allergy/AdvReac Type Severity Reaction Status Date / Time ezetimibe [From Zetia] Allergy Severe unknown Verified 04/04/24 11:36 red yeast rice Allergy Severe unknown Verified 04/04/24 11:36 Osxcuja-HLX-MzM Reductase Allergy Severe unknown Verified 04/04/24 11:36 Inhibitor [Kmfumhi-Tik-Kxp Reductase Inhibitor] escitalopram [From Lexapro] Allergy Intermediate unknown Verified 04/04/24 11:36 gabapentin Allergy Intermediate unknown Verified 04/04/24 11:36 sulfamethoxazole Allergy Intermediate unknown Verified 04/04/24 11:36 [From Bactrim] trimethoprim [From Bactrim] Allergy Intermediate unknown Verified 04/04/24 11:36 codeine Allergy Unknown Verified 04/04/24 11:36 Penicillins Allergy Unknown Verified 04/04/24 11:36 prochlorperazine Allergy Unknown Verified 04/04/24 11:36 [From Compazine] simvastatin Allergy unknown Verified 04/04/24 11:36 Sulfa (Sulfonamide Allergy Unknown Verified 04/04/24 11:36 Antibiotics) verapamil Allergy unknown Verified 04/04/24 11:36 PFSH Acute 2 PFSH: Medical History Perforated tympanic membrane of both ears on examination URI with cough and congestion Acute otitis media, bilateral Knee osteoarthritis Anticoagulation adequate with anticoagulant therapy Coronary artery disease Lichen sclerosus (~2018) Confirmed by biopsy in 2019 Myocardial infarction (~2020) No pertinent past medical history neghx: dm,thyroid,pe PCP: Dr. Somers Hypersomnolence Malaise Fatigue Gastric cardia ulcer Endometriosis Trigeminal neuralgia Dyspnea on exertion Palpitations Anxiety Chronic GERD Hypercholesteremia Spinal stenosis SVT (supraventricular tachycardia) DVT (deep venous thrombosis) Surgical History H/O heart artery stent (~05/2021) Dr. Dunn in [place]-- LAD History of atrial fibrillation (~02/22/22) cardiac ablation done History of lung surgery (~2004) nodule removal-- benign H/O brain surgery (~2000) mvd for tgn History of cholecystectomy (~1996) H/O: hysterectomy (~1989) TVH; ovaries spared. Dx with endometriosis H/O knee surgery Total knee replacement Right--08/23/2017 Total knee replacement Left--05/18/2018 History of lumbar fusion (08/18/16) Family History Brother Heart disease x2 Stroke Brother Hypercholesteremia Grandmother Stroke Maternal Breast cancer Maternal--dx age 60 Father Stroke Heart disease Hypercholesteremia Family/Other Breast cancer Maternal aunt--dx age 37 Mother Colon cancer dx age 60 Denies family history of Ovarian cancer Diabetes Hypertension Uterine cancer Thyroid disease Vitals/I&O/Wt Last Vital Signs Pulse 80 04/06/24 07:15 Resp 16 04/06/24 07:15 BP 141/87 04/06/24 07:15 Pulse Ox 97 04/06/24 07:15 O2 Del Method Room Air 04/06/24 07:15 Weight last 48 hrs Weight 241 lb Physical Exam 2 Narrative: NIH score performed by Dr. Horstman =4 NIH score performed by neurology, Dr. Melo =3(secondary to mild right lower weakness =1, drift in the right upper extremity =1, drift in the right lower extremity = 1). Glucose 98 thrombolytic Stat noncontrast head CT 04/06/2024 revealed no acute findings. Blood pressure 141/87 heart rate 71 The patient is alert into x 3. Speech fluent. Head normocephalic. Neck supple. Cranial nerves II through XII revealed mild right lower facial weakness. Pupils 3 to 4 mm round reactive to light and accommodation. Extraocular movements intact. Visual [place] full via confrontation. Motor testing 3/5 in the right arm and right leg. Motor testing in the left upper and left lower extremity 5/5. Plantar responses flexor bilaterally. There was no clonus. Patient has chronic history of decreased sensation in the right lower extremity. There was no extinction on double sensory stimulation. Throat clear. Lungs clear. Heart: history of atrial fibrillation requiring cardiac ablation surgery. Extremities were negative for cyanosis. Data 04/06/24 07:42 04/06/24 07:42 A&P Assessment and plan (1) Cerebral infarction, left hemisphere: Impression: 1. Left subcortical versus cortical infarction 04/06/2024. Although the patient's last known well was 6:30 AM on 04/06/2024 and code stroke was initiated at 7:24 AM, the patient is on Eliquis and low-dose aspirin for atrial fibrillation and therefore the patient was not a candidate for intravenous thrombolytics and no intravenous thrombolytics were administered. 2. Atrial fibrillation treated with Eliquis and low-dose has to 3. Statin allergy 4. Obstructive sleep apnea 5. History of right trigeminal nerve decompression 2000 6. History of bilateral otitis media and perforated tympanic membranes bilaterally 7. History of right foot drop Plan: 1. Agree with obtaining obtaining CT angiogram of the head and neck to assess for large vessel occlusion 2. Agree with hospital admission 3. Neurochecks and vital signs per NIH stroke protocol 4. Give patient and patient's stroke pamphlet 5. Recommend occupational therapy, physical therapy and speech therapy consults 6. Fall precautions 7. Recommend obtaining cardiology input regarding anticoagulation since the patient experienced an acute stroke on Eliquis and low-dose aspirin. Consult Attestations 2 Medical Necessity Statement: The patient was evaluated by neurology secondary to acute care/code stroke emergency department room #13 Coding Level of Care Code 14980 Diagnoses Cerebral infarction, left hemisphere I63.9
--- NOTE | 2024-04-06 08:26 | P.HP_ITS ---
Providers/Chief Complaint 2 Primary Care Provider: Malcolm Somers MD Chief Complaint: weakness & ams History of Present Illness Nathan Barraza is a 68 year old female With past medical history of atrial fibrillation status post ablation, myocardial infarction 2020, anxiety, chronic GERD, hypercholesterolemia, DVT, osteoarthritis presented to the hospital today with complaint of strokelike symptoms. She was brought in by her . She states that she is generally weak and deconditioned since her heart attack few years ago. She now goes to cardiac rehab. She states in the morning her makes breakfast and as usual he did the same today. She woke up at 530 and around 6:30 AM her stated that she had garbled speech. She also felt she was perhaps weak on the right side. Upon arrival to the ER her symptoms improved at the time when she was seen by hospitalist all her symptoms have resolved. Stroke score was 4 in the ER. Patient was seen by Dr. Melo/neurology and was deemed not a candidate for thrombolytics because she was on Eliquis. CTA head and neck has been ordered which is pending at this time. Patient to be admitted for further workup. She states she is chronically on Eliquis after an ablation done for A-fib last year. Denies nausea vomiting diarrhea, constipation or any other symptoms at this time. She is intolerant of statins and now on Repatha twice a month. Medications/Allergies Home Medications Medication Instructions Recorded Confirmed Last Taken Type multivitamin 1 tab PO DAILY 11/21/20 04/06/24 04/06/24 History docusate sodium 100 mg capsule 100 mg PO DAILY 03/16/21 04/06/24 04/05/24 History AFO brace #1 ea 08/11/22 04/06/24 Unknown Rx vitamin B comp and C no.3 15 mg-10 1 cap PO DAILY 10/04/22 04/06/24 04/06/24 History mg-50 mg-5 mg-300 mg capsule (B Complex Plus Vitamin C) apixaban 5 mg tablet (Eliquis) 5 mg PO BID #180 tabs 07/14/23 04/06/24 04/06/24 Rx isosorbide dinitrate 5 mg tablet See Rx Instructions .Route 07/22/23 04/06/24 04/05/24 Rx .COMPLEX #180 tabs AFO modification #1 ea 08/09/23 04/06/24 Unknown Rx alirocumab 150 mg/mL subcutaneous 150 mg SUBCUT Q14D #2 mL 11/16/23 04/06/24 04/01/24 Rx pen injector (Praluent Pen) baclofen 10 mg tablet 10 mg PO TID PRN spasms #60 tabs 01/04/24 04/06/24 Unknown Rx alprazolam 0.5 mg tablet (Xanax) 0.5 mg PO BID PRN Anxiety #60 tabs 02/27/24 04/06/24 Unknown Rx oxycodone-acetaminophen 7.5 mg-325 1 tab PO Q6H PRN pain 1 month #60 03/30/24 04/06/24 Unknown Rx mg tablet tabs clobetasol 0.05 % topical ointment See Rx Instructions .Route 04/04/24 04/06/24 Unknown Rx .COMPLEX #45 grams aspirin 81 mg tablet,delayed 81 mg PO DAILY 04/06/24 04/06/24 04/06/24 History release pantoprazole 40 mg tablet,delayed 40 mg PO DAILY 04/06/24 04/06/24 04/06/24 History release tramadol 50 mg tablet 50 mg PO QID PRN Pain 04/06/24 04/06/24 Unknown History Allergies Allergy/AdvReac Type Severity Reaction Status Date / Time ezetimibe [From Zetia] Allergy Severe unknown Verified 04/04/24 11:36 red yeast rice Allergy Severe unknown Verified 04/04/24 11:36 Fvlhvyg-LYA-UuP Reductase Allergy Severe unknown Verified 04/04/24 11:36 Inhibitor [Tonuosx-Uss-Ury Reductase Inhibitor] escitalopram [From Lexapro] Allergy Intermediate unknown Verified 04/04/24 11:36 gabapentin Allergy Intermediate unknown Verified 04/04/24 11:36 sulfamethoxazole Allergy Intermediate unknown Verified 04/04/24 11:36 [From Bactrim] trimethoprim [From Bactrim] Allergy Intermediate unknown Verified 04/04/24 11:36 codeine Allergy Unknown Verified 04/04/24 11:36 Penicillins Allergy Unknown Verified 04/04/24 11:36 prochlorperazine Allergy Unknown Verified 04/04/24 11:36 [From Compazine] simvastatin Allergy unknown Verified 04/04/24 11:36 Sulfa (Sulfonamide Allergy Unknown Verified 04/04/24 11:36 Antibiotics) verapamil Allergy unknown Verified 04/04/24 11:36 PFSH Acute 2 PFSH: Medical History (Updated 04/06/24 @ 18:57 by Ann Marie Jacome MD) Perforated tympanic membrane of both ears on examination URI with cough and congestion Acute otitis media, bilateral Knee osteoarthritis Anticoagulation adequate with anticoagulant therapy Coronary artery disease Lichen sclerosus (~2018) Confirmed by biopsy in 2019 Myocardial infarction (~2020) No pertinent past medical history neghx: dm,thyroid,pe PCP: Dr. Somers Hypersomnolence Malaise Fatigue Gastric cardia ulcer Endometriosis Trigeminal neuralgia Dyspnea on exertion Palpitations Anxiety Chronic GERD Hypercholesteremia Spinal stenosis SVT (supraventricular tachycardia) DVT (deep venous thrombosis) Surgical History H/O heart artery stent (~05/2021) Dr. Dunn in [place]-- LAD History of atrial fibrillation (~02/22/22) cardiac ablation done History of lung surgery (~2004) nodule removal-- benign H/O brain surgery (~2000) mvd for tgn History of cholecystectomy (~1996) H/O: hysterectomy (~1989) TVH; ovaries spared. Dx with endometriosis H/O knee surgery Total knee replacement Right--08/23/2017 Total knee replacement Left--05/18/2018 History of lumbar fusion (08/18/16) Family History Brother Heart disease x2 Stroke Brother Hypercholesteremia Grandmother Stroke Maternal Breast cancer Maternal--dx age 60 Father Stroke Heart disease Hypercholesteremia Family/Other Breast cancer Maternal aunt--dx age 37 Mother Colon cancer dx age 60 Denies family history of Ovarian cancer Diabetes Hypertension Uterine cancer Thyroid disease Vitals/I&O/Wt Last Vital Signs Pulse 65 04/06/24 08:22 Resp 20 H 04/06/24 08:22 BP 141/87 04/06/24 07:15 Pulse Ox 95 04/06/24 08:22 O2 Del Method Room Air 04/06/24 07:15 Weight last 48 hrs Weight 109.316 kg Physical Exam 2 Narrative: General: Alert oriented x3, patient seen laying in bed appearing comfortable at this time. HEENT: Normocephalic, atraumatic, EOMI, breathing room air Cardio: Regular rate rhythm, normal S1-S2, no murmurs Respiratory: Good bilateral air entry, no wheezes no rhonchi appreciated GI: Abdomen soft, nontender, nondistended, bowel sounds + Behavior: Appropriate and cooperative Extremities: no edema neuro: no focal deficits, clear speech. Data 04/06/24 07:42 04/06/24 07:42 A&P Assessment and plan (1) Atrial fibrillation: (2) Dyslipidemia: (3) Obesity: Qualifiers: Obesity type: due to excess calories Obesity classification: adult class 3 (BMI >= 40) Serious obesity comorbidity presence: without serious comorbidity Body mass index: BMI 40.0-44.9 Qualified Code(s): E66.01 - Morbid (severe) obesity due to excess calories; Z68.41 - Body mass index [BMI]40.0- 44.9, adult (4) Acute CVA (cerebrovascular accident): (5) Cerebral infarction, left hemisphere: (6) Dropfoot: (7) TIA (transient ischemic attack): Plan #Left cerebral infarction versus TIA # Atrial fibrillation chronically on anticoagulation #Obstructive sleep apnea #History of myocardial infarction currently on cardiac rehab #History of right foot drop # Hypercholesterolemia #Anxiety #Chronic GERD #Osteoarthritis #History of DVT ? Patient presented with strokelike symptoms. At time of my encounter all her symptoms have resolved at this time. Main complaint was right-sided weakness and garbled speech which have also resolved. Patient also seen by neurology. ? Check echo ? Continue on aspirin and Eliquis ? Patient intolerant of statins. Takes Repatha q. 2 weeks ? Neurochecks every 2 hours ? Check CTA head and neck. Study performed, result is pending at this time. ? Continue home medications ? Allow for permissive hypertension ? Continue normal saline 75 cc/h ? Continue patient's tramadol ? Check PT OT -Neurology note pending at this time however patient has already been seen Full code DVT prophylaxis: On Eliquis Attestations 2 Medical Necessity Statement*: Less than 48 hours stay expected. Diagnoses Atrial fibrillation I48.91 Dyslipidemia E78.5 Class 3 severe obesity due to excess calories without serious comorbidity with body mass index (BMI) of 40.0 to 44.9 in adult E66.01; Z68.41 Obesity type: due to excess calories Obesity classification: adult class 3 (BMI >= 40) Serious obesity comorbidity presence: without serious comorbidity Body mass index: BMI 40.0-44.9 Acute CVA (cerebrovascular accident) I63.9 Cerebral infarction, left hemisphere I63.9 Dropfoot M21.379 TIA (transient ischemic attack) G45.9
[2024-04-06] MEDS: iohexol 350 mg/mL 500 mL Btl (per mL) IV (08:46)
--- NOTE | 2024-04-06 09:05 | USCV_ITS ---
Nathan Barraza Age: 68 Gender: F : 1955 Exam Date: 04/06/2024 11:42 Ordering Phys: Ann Marie Jacome MD Technologist: CT Exam Location: [facility] – [place] Indication: stroke BP: 178 / 98 HR: 54 Rhythm: Sinus Technical Quality: Adequate MEASUREMENTS (Male / Female) Normal Values 2D ECHO LVOT Diameter 2.0 cm LV Ejection Fraction MOD 4C 72.5 % LV Ejection Fraction MOD 2C 53.2 % LV Ejection Fraction 2C AL 54.3 % LA Diameter 3.6 cm RA Systolic Volume 4C AL 34.1 ml RA Systolic Volume 4C MOD 31.1 ml LA Sys Volume AL 26.4 cm cubed LA Sys Volume Index AL 11.4 cm cubed/m squared Aorta at Sinotubular Diameter 2.2 cm IVC Diameter 1.3 cm M-MODE LA Ao Ratio MM 1.4 AV Cusp Separation MM 2.0 cm DOPPLER AV Peak Velocity 114.0 cm/s LVOT Peak Velocity 107.0 cm/s AV Area Cont Eq vti 3.2 cm squared AV Area Cont Eq pk 3.0 cm squared MV Peak Velocity 75.0 cm/s MV Area PHT 2.8 cm squared TR Peak Velocity 111.0 cm/s TR Peak Gradient 4.9 mmHg TV Peak E Velocity 56.0 cm/s Right Atrial Pressure 3.0 mmHg Pulmonary Artery Systolic Pressu 7.9 mmHg PV Peak Velocity 96.0 cm/s FINDINGS Left Ventricle Normal left ventricular size, systolic function estimated ejection fraction 60% with no regional wall motion abnormalities. Normal left ventricular wall thickness. Normal diastolic filling pattern. Right Ventricle The right ventricle is normal in size and function. Right Atrium The right atrium is normal in size. Left Atrium The left atrium is normal in size. Mitral Valve Structurally normal mitral valve without significant stenosis or prolapse. There is no mitral regurgitation. Aortic Valve Moderate aortic valve calcification. No aortic valve stenosis. There is trace aortic regurgitation. Tricuspid Valve Structurally normal tricuspid valve without significant stenosis and trace regurgitation. Pulmonary artery systolic pressure is normal. Pulmonic Valve Structurally normal pulmonic valve without significant stenosis. There is no pulmonic regurgitation. Pericardium Normal pericardium without effusion. Aorta Normal ascending aorta dimension. IVC The inferior vena cava appears normal. CONCLUSIONS Normal left ventricular size, systolic function estimated ejection fraction 60% with no regional wall motion abnormalities. Normal left ventricular wall thickness. Normal diastolic filling pattern. No significant valve abnormalities. There is no pericardial effusion. Pulmonary artery systolic pressure is within normal limits. Right atrial pressure is around 5 mm of mercury. Tino Caruso MD (Electronically Signed) Final Date: 06 April 2024 17:50 S
[2024-04-06 09:34] LABS: Estmated Average Glucose 108; Hemoglobin A1C 5.4 % (4.0-6.0)
[2024-04-06 09:36] LABS: Charge for UA Resulting for Rev
[2024-04-06 09:43] LABS: Bilirubin Urine Negative (Negative); Blood Urine Negative (Negative); Glucose Urine UA Negative (Normal); Ketones Urine Negative (Negative); Leukocyte Esterase Urine 3+ (Negative); Nitrate Urine Negative (Negative); Protein Urine Negative (Negative); Urine Appearance Clear (CLEAR); Urine Color Yellow (Yellow); Urobilinogen Urine 0.2 mg/dL (Negative); pH Urine 7.5 (5-7)
[2024-04-06 09:52] LABS: Amphetamines Screen Urine Negative (Negative); Barbiturates Screen Urine Negative (Negative); Benzodiazepines Screen Urine Positive (Negative); Cocaine Screen Urine Negative (Negative); Opiate Screen Urine Negative (Negative); PCP Screen Urine Negative (Negative); THC Screen Urine Negative (Negative)
[2024-04-06 09:55] LABS: Vitamin B12 679 pg/mL (232-1245)
[2024-04-06 10:06] LABS: Specific Gravity, Urine 1.034 (1.005-1.030); UA Manual Slide Review YES
[2024-04-06 10:07] LABS: WBC Urine 15-25 /hpf (0-5)
[2024-04-06 10:08] LABS: Add Urine Culture? Yes; Bacteria Urine 2+ /hpf; Squamous Epithelial Cell Urine 0-4 /hpf (0-5)
[2024-04-06] MEDS: sodium chloride 0.9% 1,000 ML 75 ML IV (10:46)
--- NOTE | 2024-04-06 13:55 | PC.OT ---
Pt seen for OT evaluation with pt stating that she does not have any deficits related to the TIA and is back to baseline with no deficits noted. No OT indicated at this time.
[2024-04-06] MEDS: TRAMadol 50 mg Tablet PO ×2 (15:08→20:07)
[2024-04-06] MEDS: apixaban 5 mg Tablet PO (18:10)
[2024-04-06] MEDS: ALPRAZolam 0.5 mg Tablet PO (20:07)
[2024-04-07] MEDS: sodium chloride 0.9% 1,000 ML 75 ML IV ×2 (00:14→11:36)
[2024-04-07] MEDS: acetaminophen 325 mg Tablet 650 MG PO ×2 (02:46→09:08)
[2024-04-07] MEDS: TRAMadol 50 mg Tablet PO ×2 (02:47→09:09)
[2024-04-07 04:00] VITALS: BP 142/83; PULSE 61; RESP 17; TEMP 36.3; O2SAT 95
[2024-04-07 05:23] LABS: Basophils # 0.1 10^3/uL (0.0-0.1); Basophils % 0.9 %; Eosinophils # 0.3 10^3/uL (0.0-0.8); Hematocrit 40.8 % (36-47); Lymphocytes # 2.1 10^3/uL (0.8-4.8); Lymphocytes % 31.4 %; Mean Corpuscular HGB Conc 33.6 g/dL (30-55); Mean Corpuscular Hemoglobin 32.8 pg (27-33); Mean Corpuscular Volume 97.6 fl (85-98); Monocytes # 0.7 10^3/uL (0.2-0.9); Monocytes % 10.9 %; Neutrophils # 3.56 10^3/uL (1.8-7.7); Neutrophils % 52.5 %; Nucleated Red Blood Cells % 0 %; Platelet Count 258 10^3/cmm (157-399); Red Blood Count 4.18 10^6/uL (3.85-5.65); Red Cell Distribution Width 13.4 % (12.1-15.1); White Blood Count 6.78 10^3/uL (3.29-11.43)
[2024-04-07 05:34] LABS: Blood Urea Nitrogen 10 mg/dL (8-23); Calcium 8.2 mg/dL (8.5-10.5); Carbon Dioxide 22 mmol/L (22-29); Chloride 108 mmol/L (98-107); Creatinine Clr Calc Pharmacy 82.5065; Glomerular Filtration Rate 122.7 mL/min (90-130); Glucose 93 mg/dL (65-115); Magnesium 2.1 mg/dL (1.7-2.3); Osmolality Calculated 291 mOsm/kg (285-295); Sodium 141 mmol/L (136-145)
[2024-04-07 06:00] VITALS: PULSE 57
[2024-04-07 07:41] VITALS: BP 124/71; PULSE 63; RESP 17; TEMP 36.4; O2SAT 95
[2024-04-07] MEDS: multivitamin therapeutic Tablet 1 TAB PO (08:31)
[2024-04-07] MEDS: aspirin 81 mg EC Tablet PO (08:31)
[2024-04-07] MEDS: docusate sodium 100 mg Capsule PO (08:31)
[2024-04-07] MEDS: apixaban 5 mg Tablet PO (08:31)
[2024-04-07] MEDS: ALPRAZolam 0.5 mg Tablet PO (09:49)
[2024-04-07 11:20] VITALS: BP 137/81; PULSE 59; RESP 18; TEMP 36.3; O2SAT 96
--- NOTE | 2024-04-07 13:05 | P.DS_ITS ---
Discharge Providers Date of Admission: 04/06/24 09:17 Date of Discharge: April 07, 2024 Attending Provider at Admission: Ann Marie Jacome MD Attending Provider at Discharge: Frankie Chirinos MD Consults: Neurology Primary Care Provider: Malcolm Somers MD Diagnoses at Discharge Discharge Diagnosis (1) Atrial fibrillation: Status: Acute (2) Dyslipidemia: Status: Acute (3) Obesity: Status: Acute Qualifiers: Body mass index: BMI 40.0-44.9 Obesity classification: adult class 3 (BMI >= 40) Obesity type: due to excess calories Serious obesity comorbidity presence: without serious comorbidity Qualified Code(s): E66.01 - Morbid (severe) obesity due to excess calories; Z68.41 - Body mass index [BMI]40.0- 44.9, adult (4) Acute CVA (cerebrovascular accident): Status: Acute (5) Cerebral infarction, left hemisphere: Status: Acute (6) Dropfoot: Status: Chronic (7) TIA (transient ischemic attack): Status: Acute Reason for Visit Reason for Visit: weakness & ams Hospital Course Hospital Course Victoria Barraza is a very pleasant 68-year-old female with a past medical history significant for atrial fibrillation status post ablation, coronary artery disease with prior myocardial infarction, anxiety, GERD, deep vein thrombosis, and multiple other comorbidities who presented with strokelike symptoms. Neurology was consulted and followed. Head CT was negative for acute intracranial abnormalities. Head and neck CTA revealed no high-grade cervical carotid stenosis. There was calcified plaque at the bifurcation resulting in mild stenosis. Her symptomatology resolved. She was continued on apixaban and aspirin. She is noted to have a history of statin intolerance. Patient worked well with therapy. Patient discharged to home in stable condition. She will follow-up with her outpatient providers for continued care. Physical Exam Narrative: General: Patient is awake and alert. Head: Normocephalic. Atraumatic. EOM intact. Neck: No JVD. Cardiovascular: RRR. No gallops. No murmurs. Lungs: Clear to auscultation, no use of accessory muscles, no crackles or wheezes. Skin: No jaundice. No rashes. Abdomen: Normal bowel sounds, abdomen soft and nontender. Extremities: No cyanosis or clubbing. Musculoskeletal: No swollen or erythematous joints. Neurological: Moves all 4 extremities. No myoclonus. Discharge Data Studies Completed and Pending Completed Studies During Hospitalization Category Date Time Status CT head thrombolytic [id number] Stat Cat Scan 04/06/24 07:32 Completed CTA head neck [CT angio headneck* [id number]] Stat Cat Scan 04/06/24 08:03 Completed US echo complete [CV. echo complete* [id number]] Routine Ultrasound 04/06/24 09:05 Completed Pending at discharge Category Date Time Status Urine Culture Stat Lab 04/06/24 09:28 Received Radiology Impressions Head CT 04/06/24 07:32 IMPRESSION: No acute intracranial abnormality. ASSESSMENT: ASPECTS ([place] Stroke Program Early CT Score) is 10. Head/Neck CTA 04/06/24 08:03 IMPRESSION: 1. No high-grade cervical carotid artery stenosis. Calcified plaque at the bifurcations resulting in mild stenosis, less than 50%. 2. Calcified plaque in the distal intracranial carotid arteries but no occlusion. 3. Middle cerebral arteries are patent. No thrombus or clot identified. Laboratory Results WBC 6.78 10^3/uL (3.29-11.43) 04/07/24 04:35 RBC 4.18 10^6/uL (3.85-5.65) 04/07/24 04:35 Hgb 13.70 g/dL (11.27-16.99) 04/07/24 04:35 Hct 40.8 % (36-47) 04/07/24 04:35 MCV 97.6 fl (85-98) 04/07/24 04:35 MCH 32.8 pg (27-33) 04/07/24 04:35 MCHC 33.6 g/dL (30-55) 04/07/24 04:35 RDW 13.4 % (12.1-15.1) 04/07/24 04:35 Plt Count 258 10^3/cmm (157-399) 04/07/24 04:35 MPV 9.0 fL (7.4-10.4) 04/07/24 04:35 Neut % (Auto) 52.5 % 04/07/24 04:35 Lymph % (Auto) 31.4 % 04/07/24 04:35 [place] % (Auto) 10.9 % 04/07/24 04:35 Eos % (Auto) 4.0 % 04/07/24 04:35 Baso % (Auto) 0.9 % 04/07/24 04:35 Neut # (Auto) 3.56 10^3/uL (1.8-7.7) 04/07/24 04:35 Lymph # (Auto) 2.1 10^3/uL (0.8-4.8) 04/07/24 04:35 [place] # (Auto) 0.7 10^3/uL (0.2-0.9) 04/07/24 04:35 Eos # (Auto) 0.3 10^3/uL (0.0-0.8) 04/07/24 04:35 Baso # (Auto) 0.1 10^3/uL (0.0-0.1) 04/07/24 04:35 Nucleated RBC % (auto) 0 % 04/07/24 04:35 Nucleated RBCs # 0.0 /100WBC 04/07/24 04:35 PT 15.60 SECONDS (12.1-14.9) H 04/06/24 07:42 INR 1.20 (0.8-1.2) 04/06/24 07:42 APTT 31.1 SECONDS (23.9-36.7) 04/06/24 07:42 Sodium 141 mmol/L (136-145) 04/07/24 04:35 Potassium 4.0 mmol/L (3.5-5.1) 04/07/24 04:35 Chloride 108 mmol/L (98-107) H 04/07/24 04:35 Carbon Dioxide 22 mmol/L (22-29) 04/07/24 04:35 Anion Gap 15.0 (5-19) 04/07/24 04:35 BUN 10 mg/dL (8-23) 04/07/24 04:35 Creatinine 0.5 mg/dL (0.5-0.9) 04/07/24 04:35 GFR Calculation 122.7 mL/min (90-130) 04/07/24 04:35 Glucose 93 mg/dL (65-115) 04/07/24 04:35 POC Glucose 92 mg/dL (70-110) 04/06/24 07:24 Estimat Average Glucose 108 04/06/24 07:42 Hemoglobin A1c 5.4 % (4.0-6.0) 04/06/24 07:42 Calculated Osmolality 291 mOsm/kg (285-295) 04/07/24 04:35 Calcium 8.2 mg/dL (8.5-10.5) L 04/07/24 04:35 Magnesium 2.1 mg/dL (1.7-2.3) 04/07/24 04:35 Total Bilirubin 0.7 mg/dL (0.15-1.2) 04/06/24 07:42 AST 19 U/L (0-32) 04/06/24 07:42 ALT 15 U/L (0-33) 04/06/24 07:42 Alkaline Phosphatase 100 U/L (35-105) 04/06/24 07:42 Total Protein 6.8 g/dL (6.6-8.7) 04/06/24 07:42 Albumin 3.9 g/dL (3.5-5.2) 04/06/24 07:42 Globulin 2.9 g/dL (1.3-4.6) 04/06/24 07:42 Vitamin B12 679 pg/mL (232-1245) 04/06/24 07:42 TSH 1.20 uIU/mL (0.27-4.20) 04/06/24 07:42 Urine Color Yellow (Yellow) 04/06/24 09:28 Urine Appearance Clear (CLEAR) 04/06/24 09:28 Urine pH 7.5 (5-7) 04/06/24 09:28 Ur Specific [place] 1.034 (1.005-1.030) H 04/06/24 09:28 Urine Protein Negative (Negative) 04/06/24 09:28 Urine Glucose (UA) Negative (Normal) 04/06/24 09:28 Urine Ketones Negative (Negative) 04/06/24 09:28 Urine Blood Negative (Negative) 04/06/24 09:28 Urine Nitrate Negative (Negative) 04/06/24 09:28 Urine Bilirubin Negative (Negative) 04/06/24 09:28 Urine Urobilinogen 0.2 mg/dL (Negative) 04/06/24 09:28 Ur Leukocyte Esterase 3+ (Negative) A 04/06/24 09:28 Urine WBC 15-25 /hpf (0-5) H 04/06/24 09:28 Ur Squamous Epith Cells 0-4 /hpf (0-5) H 04/06/24 09:28 Amorphous Sediment Not Reportable 04/06/24 09:28 Urine Bacteria 2+ /hpf (NONE) H 04/06/24 09:28 Urine Opiates Screen Negative ng/mL (Negative) 04/06/24 09:28 Ur Barbiturates Screen Negative ng/mL (Negative) 04/06/24 09:28 Ur Phencyclidine Scrn Negative ng/mL (Negative) 04/06/24 09:28 Ur Amphetamines Screen Negative ng/mL (Negative) 04/06/24 09:28 U Benzodiazepines Scrn Positive ng/mL (Negative) H 04/06/24 09:28 Urine Cocaine Screen Negative ng/mL (Negative) 04/06/24 09:28 U Marijuana (THC) Screen Negative ng/mL (Negative) 04/06/24 09:28 Vitals Last Vital Signs Temp 97.4 F L 04/07/24 11:20 Pulse 59 L 04/07/24 11:20 Resp 18 04/07/24 11:20 BP 137/81 04/07/24 11:20 Pulse Ox 96 04/07/24 11:20 O2 Del Method Room Air 04/07/24 11:20 Discharge Plan Discharge Patient Disposition: Home Condition: Stable Prescriptions: Continued docusate sodium 100 mg capsule 100 mg PO DAILY (DME) AFO modification See Rx Instructions .Route .MEDSUPPLY Qty: 1 0RF Rx Instructions: As directed to [facility] [place] (DME) AFO brace See Rx Instructions .Route .MEDSUPPLY Qty: 1 0RF Rx Instructions: As directed B Complex Plus Vitamin C [id number] mg capsule 1 cap PO DAILY Rx Instructions: give with food (meal/snack) Eliquis 5 mg tablet 5 mg PO BID Qty: 180 3RF Hold Instructions: Resume on 12/15/22. May start tomorrow evening clobetasol 0.05 % ointment See Rx Instructions .ROUTE .COMPLEX Qty: 45 1RF Dose Instruction: apply topically TWICE DAILY NEEDED FOR lichen sclerosis Rx Instructions: Apply topically TWICE DAILY NEEDED FOR lichen sclerosis. alprazolam [Xanax] 0.5 mg tablet 0.5 mg PO BID PRN (Reason: Anxiety) Qty: 60 5RF isosorbide dinitrate 5 mg tablet See Rx Instructions .ROUTE .COMPLEX Qty: 180 3RF Dose Instruction: TAKE 1 TABLET BY MOUTH TWICE DAILY. ALLOW NITRATE FREE INTERVAL OF 12-14 HOURS PER 24 HOUR PERIOD Rx Instructions: TAKE 1 TABLET BY MOUTH TWICE DAILY. ALLOW NITRATE FREE INTERVAL OF 12-14 HO URS PER 24 HOUR PERIOD Praluent Pen 150 mg/mL pen injector 150 mg SUBCUT Q14D Qty: 2 11RF Rx Instructions: inject into abdomen, thigh, or upper arm (deltoid muscle); rotate sites baclofen 10 mg tablet 10 mg PO TID PRN (Reason: spasms) Qty: 60 2RF oxycodone-acetaminophen 7.5-325 mg tablet 1 tab PO Q6H PRN (Reason: pain) 30 Days Qty: 60 0RF multivitamin Tablet 1 tab PO DAILY aspirin 81 mg Tablet,Delayed Release (Dr/Ec) 81 mg PO DAILY tramadol 50 mg tablet 50 mg PO QID PRN (Reason: Pain) pantoprazole 40 mg tablet,delayed release (DR/EC) 40 mg PO DAILY Discharge Orders: Discharge Order (Routine); Ordered 04/07/24 Ordered By: Frankie Chirinos Referrals: Lacy Kauffman MD [Physician] - 7-10 days (We have notified your physician's clinic of the need for a follow-up appointment to be scheduled. If you have not heard from them within the next 2 business days, please call them directly. ) Malcolm Somers MD [Primary Care Provider] - 4-7 days (We have notified your physician's clinic of the need for a follow-up appointment to be scheduled. If you have not heard from them within the next 2 business days, please call them directly. ) Discharge Diet: Advance as tolerated and Cardiac Discharge Activity: Resume usual activity Patient Instructions: Transient Ischemic Attack (DC), A-fib (Atrial Fibrillation) (DC), Opioid Safety, Stroke Stoplight Activity Restrictions/Additional Instructions: 1. Take medications as prescribed. 2. Continue cardiac rehab. Discharge Attestations Time Spent in Discharge Care*: greater than 30 min Status at Discharge: Cognitive status at discharge: cognitively intact , Behavioral status at discharge: cooperative , Quality Metrics Clinical Quality Measures [ No reported AMI, CVA or VTE this stay] Coding Level of Care Code Acute Code for [facility] Fwd Diagnoses Atrial fibrillation I48.91 Dyslipidemia E78.5 Class 3 severe obesity due to excess calories without serious comorbidity with body mass index (BMI) of 40.0 to 44.9 in adult E66.01; Z68.41 Body mass index: BMI 40.0-44.9 Obesity classification: adult class 3 (BMI >= 40) Obesity type: due to excess calories Serious obesity comorbidity presence: without serious comorbidity Acute CVA (cerebrovascular accident) I63.9 Cerebral infarction, left hemisphere I63.9 Dropfoot M21.379 TIA (transient ischemic attack) G45.9
[2024-04-07 14:38] VITALS: BP 137/81; PULSE 59; RESP 18; TEMP 36.3; O2SAT 96
== END 2024-04-07 14:30 | disposition home or self-care (01) | DRG 65 ==
LOC: ER 07:30 → MEDSURG 09:18
PROVIDERS: Admitting Provider Internal Medicine; Emergency Provider Family Medicine; PCP Family Medicine; Visit Provider Internal Medicine
DX: I63.9 Cerebral infarction, unspecified (principal); Z68.41 Body mass index [BMI] 40.0-44.9, adult; I48.91 Unspecified atrial fibrillation; I25.2 Old myocardial infarction; K21.9 Gastro-esophageal reflux disease without esophagitis; F41.9 Anxiety disorder, unspecified; E78.00 Pure hypercholesterolemia, unspecified; Z86.718 Personal history of other venous thrombosis and embolism; I25.10 Atherosclerotic heart disease of native coronary artery without angina pectoris; Z95.5 Presence of coronary angioplasty implant and graft; Z90.710 Acquired absence of both cervix and uterus; E78.5 Hyperlipidemia, unspecified; E66.01 Morbid (severe) obesity due to excess calories; G47.33 Obstructive sleep apnea (adult) (pediatric); M19.90 Unspecified osteoarthritis, unspecified site; Z98.1 Arthrodesis status; Z82.3 Family history of stroke; Z82.49 Family history of ischemic heart disease and other diseases of the circulatory system; Z96.653 Presence of artificial knee joint, bilateral; Z79.01 Long term (current) use of anticoagulants; Z79.899 Other long term (current) drug therapy; Z79.82 Long term (current) use of aspirin; Z88.1 Allergy status to other antibiotic agents; Z88.0 Allergy status to penicillin; Z88.8 Allergy status to other drugs, medicaments and biological substances; Z91.018 Allergy to other foods; Z87.891 Personal history of nicotine dependence
CPT/HCPCS: 36415; 36416; 70450; 70496; 70498; 80048; 80053; 80306; 81003; 81015; 82607; 82962; 83036; 83735; 84443; 85025; 85610; 85730; 87086; 93005; 93306; 97110; 97161; 99285; J7030

== ENCOUNTER 2024-04-25 12:31 | Outpatient (CLI) | payer MEDICARE, OTHER, SELFPAY ==
--- NOTE | 2024-04-25 13:00 | XR_ITS ---
WS: [email or web address] SCREENING DEXA SCAN [employer] CLINICAL INFORMATION: Z78.0 - Asymptomatic menopausal state COMPARISON: None. FINDINGS: The LEFT forearm bone mineral density measures 0.910. This corresponds to a T score score of 0.4 and Z score of 2.1. Left femoral neck bone mineral density measures 0.999 g/cm2. This corresponds to a T score of -0.1 an d Z score of 0.5. Right femoral neck bone mineral density measures 0.997 g/cm2. This corresponds to a T score -0.1of an d Z score of 0.5. Mean femoral neck bone mineral density measures 0.998 g/cm2. This corresponds to a T score of -0.1 an d Z score of 0.5. XR/XR DEXA axial skeleton* [id number] IMPRESSION: Normal bone mineralization. Patient's FRAX calculated 10 year probability for major osteoporotic fracture i s 6.9% and osteoporotic hip fracture is 0.4%.
--- NOTE | 2024-04-25 13:30 | MM_ITS ---
WS: [email or web address] BILATERAL SCREENING DIGITAL TOMOSYNTHESIS MAMMOGRAM WITH CAD HISTORY: Z12.39 - Encounter for other screening for malignant neop... COMPARISON: 04/20/2023, 03/03/2022, 08/07/2014 Bilateral CC and MLO views with tomosynthesis and synthetic mammography submitted. Computer aided det ection analyzed. Breast composition: There are scattered areas of fibroglandular density. No suspicious masses, microc alcifications or architectural distortion. Several asymmetries and nodules in the anterior RIGHT maxim st seen best on the lateral projection below the nipple line. These are stable since at least 02/12/20 22. Additional benign calcifications are stable. MM/MM scr BI tomosynthesis [id number] IMPRESSION: BI-RADS: 2 - Benign. FOLLOW UP: 1 Year Follow-up
== END 2024-04-25 12:32 | disposition home or self-care (01) ==
LOC: RAD 12:32
PROVIDERS: PCP Family Medicine; Visit Provider Nurse Practitioner Women's Health
DX: Z12.31 Encounter for screening mammogram for malignant neoplasm of breast (principal); Z13.820 Encounter for screening for osteoporosis; Z78.0 Asymptomatic menopausal state; R92.323 Mammographic fibroglandular density, bilateral breasts; N64.89 Other specified disorders of breast; R92.1 Mammographic calcification found on diagnostic imaging of breast
CPT/HCPCS: 77063; 77067; 77080

== ENCOUNTER → 2024-04-26 14:44 | Outpatient (BNVA) | payer MEDICARE, OTHER, SELFPAY | PROVIDERS: PCP Family Medicine; Visit Provider Internal Medicine Cardiovascular Disease | DX: I48.92 Unspecified atrial flutter (principal); I82.511 Chronic embolism and thrombosis of right femoral vein; I25.10 Atherosclerotic heart disease of native coronary artery without angina pectoris; Z79.01 Long term (current) use of anticoagulants; Z86.73 Personal history of transient ischemic attack (TIA), and cerebral infarction without residual deficits | CPT/HCPCS: 99214 ==

== ENCOUNTER 2024-05-01 13:11 | Outpatient (RCR) | payer MEDICARE, OTHER, SELFPAY | END 2024-05-31 23:59 | disposition home or self-care (01) | LOC: CR 13:11 | PROVIDERS: PCP Family Medicine; Referring Provider Internal Medicine Cardiovascular Disease; Visit Provider Internal Medicine Cardiovascular Disease | DX: Z95.5 Presence of coronary angioplasty implant and graft (principal) ==

== ENCOUNTER → 2024-05-17 09:14 | Outpatient (BNVA) | payer SELFPAY | PROVIDERS: PCP Family Medicine; Visit Provider Family Medicine | DX: F41.9 Anxiety disorder, unspecified (principal); I25.10 Atherosclerotic heart disease of native coronary artery without angina pectoris | CPT/HCPCS: 80053; 80061; 85025 ==

== ENCOUNTER → 2024-05-22 07:45 | Outpatient (BNVA) | payer MEDICARE, OTHER, SELFPAY | PROVIDERS: PCP Family Medicine; Visit Provider Podiatrist Foot & Ankle Surgery | DX: S86.012A Strain of left Achilles tendon, initial encounter (principal); M79.671 Pain in right foot; M19.071 Primary osteoarthritis, right ankle and foot; X58.XXXA Exposure to other specified factors, initial encounter | CPT/HCPCS: 20600; 20605; 99213; J1100; J3301 ==

== ENCOUNTER 2024-05-22 09:36 | Outpatient (CLI) | payer MEDICARE, OTHER, SELFPAY | END 2024-05-22 09:37 | disposition home or self-care (01) | LOC: SPT 09:38 | PROVIDERS: PCP Family Medicine; Visit Provider Podiatrist Foot & Ankle Surgery | DX: Z46.89 Encounter for fitting and adjustment of other specified devices (principal); S86.019D Strain of unspecified Achilles tendon, subsequent encounter; X58.XXXD Exposure to other specified factors, subsequent encounter | CPT/HCPCS: 97760; L4361 ==

== ENCOUNTER → 2024-06-04 06:44 | Outpatient (BNVA) | payer MEDICARE, OTHER, SELFPAY | PROVIDERS: PCP Family Medicine; Visit Provider Podiatrist Foot & Ankle Surgery | DX: S86.012A Strain of left Achilles tendon, initial encounter (principal); M79.671 Pain in right foot; M19.072 Primary osteoarthritis, left ankle and foot; X58.XXXA Exposure to other specified factors, initial encounter | CPT/HCPCS: 99213 ==

== ENCOUNTER 2024-06-19 07:30 | Outpatient (CLI) | payer MEDICARE, OTHER, SELFPAY ==
--- NOTE | 2024-06-19 08:00 | MR_ITS ---
WS: [id number] MRI LEFT ANKLE WITHOUT CONTRAST. COMPARISON: 10/20/2022 radiograph. Multiplanar, multisequence imaging is performed without contrast. History: Evaluate Achilles tendon for possible tear. Prior fall. No Achilles tendon tear. There is mild very minimal increased signal in the Achilles tendon. No tear. Large amount of edema throughout the calcaneus. The edema extends to the posterior calcaneus at the i nsertion site of the Achilles tendon. Changes are most likely due to fracture and not Achilles tendon tear. Nondisplaced fracture is noted through the posterior calcaneus. Peroneal tendons are normal. Flexor hallucis longus, flexor digitorum longus and the posterior tibial is tendons appear appropriate. Anterior extensor tendons are normal. Moderate narrowing of the tibiotalar joint space. Marrow edema along the anterior tibial plafond. Nor mal syndesmosis. There is a small amount of fluid adjacent to the anterior talofibular ligament. No d efinite tear is identified. Posterior talofibular ligament is intact. Chronic degenerative changes in the deltoid ligament. Normal calcaneofibular ligament. Spring ligament is intact. Edema in the sinus Tarsi. MR/MR ankle LT wo con* [id number] IMPRESSION: 1. Acute calcaneal fracture involving predominantly the posterior calcaneus. F racture extends to the insertion site of the Achilles tendon. There is no depre ssion or loss of height of the calcaneus. 2. Mild tendinopathy in the Achilles tendon. 3. Mild narrowing of the tibiotalar joint space with a small amount of edema i n the anterior tibial plafond. 4. No peroneal tendon injury.
== END 2024-06-19 07:31 | disposition home or self-care (01) ==
PROVIDERS: PCP Family Medicine; Visit Provider Podiatrist Foot & Ankle Surgery
DX: S92.002A Unspecified fracture of left calcaneus, initial encounter for closed fracture (principal); X58.XXXA Exposure to other specified factors, initial encounter
CPT/HCPCS: 73721

== ENCOUNTER → 2024-06-20 14:17 | Outpatient (BNVA) | payer MEDICARE, OTHER, SELFPAY | PROVIDERS: PCP Family Medicine; Visit Provider Podiatrist Foot & Ankle Surgery | DX: S86.012A Strain of left Achilles tendon, initial encounter; M79.671 Pain in right foot; M19.079 Primary osteoarthritis, unspecified ankle and foot; M84.372A Stress fracture, left ankle, initial encounter for fracture; X58.XXXA Exposure to other specified factors, initial encounter | CPT/HCPCS: 99213 ==

== ENCOUNTER 2024-07-03 12:34 | Outpatient (RCR) | payer SELFPAY | END 2024-07-31 23:59 | disposition home or self-care (01) | LOC: CR 12:34 | PROVIDERS: PCP Family Medicine; Referring Provider Internal Medicine Cardiovascular Disease; Visit Provider Internal Medicine Cardiovascular Disease | DX: Z95.5 Presence of coronary angioplasty implant and graft (principal) ==

== ENCOUNTER → 2024-07-09 15:08 | Outpatient (BNVA) | payer SELFPAY | PROVIDERS: PCP Family Medicine; Visit Provider Podiatrist Foot & Ankle Surgery | DX: M84.372D Stress fracture, left ankle, subsequent encounter for fracture with routine healing; S86.012D Strain of left Achilles tendon, subsequent encounter; W19.XXXD Unspecified fall, subsequent encounter; M19.072 Primary osteoarthritis, left ankle and foot; M79.671 Pain in right foot; M84.376 Stress fracture, unspecified foot | CPT/HCPCS: 73630 ==

== ENCOUNTER → 2024-08-02 07:01 | Outpatient (BNVA) | payer MEDICAID, OTHER, SELFPAY | PROVIDERS: PCP Family Medicine; Visit Provider Podiatrist Foot & Ankle Surgery | DX: M19.071 Primary osteoarthritis, right ankle and foot; M72.2 Plantar fascial fibromatosis; M84.372D Stress fracture, left ankle, subsequent encounter for fracture with routine healing | CPT/HCPCS: 20550; 20600; 73630; 99213; J1100; J3301 ==

== ENCOUNTER 2024-08-09 09:05 | Outpatient (RCR) | payer MEDICARE, OTHER, SELFPAY | END 2024-08-31 23:59 | disposition home or self-care (01) | LOC: CR 09:05 | PROVIDERS: PCP Family Medicine; Referring Provider Internal Medicine Cardiovascular Disease; Visit Provider Internal Medicine Cardiovascular Disease | DX: Z95.5 Presence of coronary angioplasty implant and graft (principal) ==

== ENCOUNTER 2024-09-03 15:05 | Outpatient (RCR) | payer SELFPAY | END 2024-09-28 23:59 | disposition home or self-care (01) | LOC: CR 15:05 | PROVIDERS: PCP Family Medicine; Referring Provider Internal Medicine Cardiovascular Disease; Visit Provider Internal Medicine Cardiovascular Disease | DX: Z95.5 Presence of coronary angioplasty implant and graft (principal) ==

== ENCOUNTER 2024-09-29 12:14 | Outpatient (RCR) | payer SELFPAY | END 2024-10-29 23:59 | disposition home or self-care (01) | LOC: CR 12:14 | PROVIDERS: PCP Family Medicine; Referring Provider Internal Medicine Cardiovascular Disease; Visit Provider Internal Medicine Cardiovascular Disease | DX: Z95.5 Presence of coronary angioplasty implant and graft (principal) ==

== ENCOUNTER → 2024-10-22 13:35 | Outpatient (BNVA) | payer MEDICARE, OTHER, SELFPAY | PROVIDERS: PCP Family Medicine; Visit Provider Internal Medicine Cardiovascular Disease | DX: I48.92 Unspecified atrial flutter (principal); I25.10 Atherosclerotic heart disease of native coronary artery without angina pectoris; I82.511 Chronic embolism and thrombosis of right femoral vein; Z79.01 Long term (current) use of anticoagulants; I95.2 Hypotension due to drugs | CPT/HCPCS: 99214 ==

== ENCOUNTER → 2024-10-24 07:25 | Outpatient (BNVA) | payer MEDICARE, OTHER, SELFPAY | PROVIDERS: PCP Family Medicine; Visit Provider Podiatrist Foot & Ankle Surgery | DX: M79.671 Pain in right foot (principal); M79.672 Pain in left foot; M19.071 Primary osteoarthritis, right ankle and foot; M84.375A Stress fracture, left foot, initial encounter for fracture; M85.872 Other specified disorders of bone density and structure, left ankle and foot | CPT/HCPCS: 20600; 73630; 99213 ==

== ENCOUNTER 2024-10-30 13:23 | Outpatient (RCR) | payer SELFPAY | END 2024-11-28 23:59 | disposition home or self-care (01) | LOC: CR 13:23 | PROVIDERS: PCP Family Medicine; Referring Provider Internal Medicine Cardiovascular Disease; Visit Provider Internal Medicine Cardiovascular Disease | DX: Z95.5 Presence of coronary angioplasty implant and graft (principal) ==

== ENCOUNTER → 2024-11-16 08:48 | Outpatient (BNVA) | payer MEDICARE, OTHER, SELFPAY | PROVIDERS: PCP Family Medicine; Visit Provider Family Medicine | DX: R31.9 Hematuria, unspecified (principal); I25.10 Atherosclerotic heart disease of native coronary artery without angina pectoris; R10.9 Unspecified abdominal pain | CPT/HCPCS: 80053; 80061; 81000; 85025 ==

== ENCOUNTER 2024-11-28 09:05 | Outpatient (CLI) | payer MEDICARE, OTHER, SELFPAY ==
--- NOTE | 2024-11-28 09:45 | US_ITS ---
WS: [email or web address] RENAL ULTRASOUND URINARY BLADDER ULTRASOUND HISTORY: hematuria COMPARISON: 11/04/2021, 01/02/2019 TECHNIQUE: 2-D and color Doppler imaging of the kidney submitted. Right kidney: 9.4 cm x 5.6 cm x 4.6 cm. Normal echogenicity with no hydronephrosis or mass. Left kidney: 9.5 cm x 4.4 (cm) cm x 4.6 (cm) cm. Normal echogenicity with no hydronephrosis or mass. Aorta: Normal. Urinary Bladder: Only minimally distended. Bladder wall thickening due to underdistention. Prevoid volume: 63 mL. Post void volume: No change. Patient was unable to void. US/US renal BI with PV bladder IMPRESSION: 1. No renal obstruction or mass. 2. Nondistended urinary bladder. Limited evaluation of the bladder. Patient wa s unable to void as the bladder was not distended.
== END 2024-11-28 09:06 | disposition home or self-care (01) ==
PROVIDERS: PCP Family Medicine; Visit Provider Family Medicine
DX: R31.9 Hematuria, unspecified (principal); N32.89 Other specified disorders of bladder
CPT/HCPCS: 76770; 76857

== ENCOUNTER 2024-11-29 10:52 | Outpatient (RCR) | payer SELFPAY | END 2024-12-29 23:59 | disposition home or self-care (01) | LOC: CR 10:52 | PROVIDERS: PCP Family Medicine; Referring Provider Internal Medicine Cardiovascular Disease; Visit Provider Internal Medicine Cardiovascular Disease | DX: Z95.5 Presence of coronary angioplasty implant and graft (principal) ==

== ENCOUNTER 2024-12-10 09:28 | Outpatient (CLI) | payer MEDICARE, OTHER, SELFPAY ==
[2024-12-10] MEDS: iohexol 350 mg/mL 500 mL Btl (per mL) PO (10:00)
--- NOTE | 2024-12-10 11:00 | CT_ITS ---
WS: [email or web address] CT ABDOMEN AND PELVIS WITH CONTRAST HISTORY: abd pain, RIGHT upper quadrant pain into back for 2 months. TECHNIQUE: Imaging performed of the abdomen and pelvis with IV contrast. Single phase imaging of the abdomen. Coronal and sagittal reformats are submitted. All CT scans at [facility] use at least one of these dose optimization techniques: automated exposure control; mA and/or kV adjustment per patient size (includes targeted exams where dose is matched to clinical indication); or iterative reconstruction. IV CONTRAST: Omnipaque 350; 100 mL IV. Oral contrast: Yes. DLP: 788.16 mGy.cm COMPARISON: 12/19/2005 Lower thorax: Micronodule LEFT lung base. Heart is normal size. Small hiatal hernia. Liver/biliary system: Normal size liver. Very mild central biliary dilatation. Common bile duct is dilated to 1.2 cm. Soft tissue stranding around the common bile duct, most significant within the pancreatic head and to the ampulla of Vater. Gallbladder: Prior cholecystectomy. Pancreas: Fatty replacement of the pancreas. Peripancreatic stranding around the pancreatic head and common bile duct. No fluid collection and no mass identified. Spleen: Normal size spleen. No mass or infarct. Adrenal glands: Normal. Right kidney: Normal. Left kidney: Normal. Aorta: Mild atherosclerosis aorta. Mild mesenteric artery plaque. Lymphadenopathy: None. Free fluid: None. GI tract: Stomach is well distended with oral contrast. No small bowel obstruction. Normal appendix. Minimal diverticular disease. Abdominal wall: Fat containing umbilical hernia. Pelvis: No free fluid or adenopathy within the pelvis. Negative urinary bladder. Prior hysterectomy. Bones: Lumbar fusion hardware from L4-S1. No destructive bone lesions. CT/CT abdomen pelvis w con* [id number] IMPRESSION: 1. Status post cholecystectomy. 2. Mild fat stranding around the pancreatic head and common bile duct. Correla te for acute pancreatitis. The common bile duct is dilated to 1.2 cm. This may be appropriate for postcholecystectomy state. 3. There is mild intrahepatic duct dilatation which can also be seen postchole cystectomy. Consider MRCP for further evaluation. 4. No pseudocyst or mass identified. No pancreatic duct dilatation. 5. No renal obstruction. 6. No ascites.
[2024-12-10] MEDS: iohexol 350 mg/mL 500 mL Btl (per mL) IV (11:20)
== END 2024-12-10 09:29 | disposition home or self-care (01) ==
PROVIDERS: PCP Family Medicine; Visit Provider Family Medicine
DX: R10.9 Unspecified abdominal pain (principal); Z90.49 Acquired absence of other specified parts of digestive tract; R93.3 Abnormal findings on diagnostic imaging of other parts of digestive tract; R91.1 Solitary pulmonary nodule; K44.9 Diaphragmatic hernia without obstruction or gangrene; R93.2 Abnormal findings on diagnostic imaging of liver and biliary tract; K86.89 Other specified diseases of pancreas; I70.0 Atherosclerosis of aorta; K55.1 Chronic vascular disorders of intestine; K42.9 Umbilical hernia without obstruction or gangrene; Z98.890 Other specified postprocedural states; Z98.1 Arthrodesis status
CPT/HCPCS: 74177

== ENCOUNTER → 2024-12-12 09:57 | Outpatient (BNVA) | payer MEDICARE, OTHER, SELFPAY | PROVIDERS: PCP Family Medicine; Visit Provider Family Medicine | DX: R10.9 Unspecified abdominal pain (principal) | CPT/HCPCS: 80053; 83690 ==

== ENCOUNTER 2024-12-31 11:49 | Outpatient (RCR) | payer SELFPAY | END 2025-01-28 23:59 | disposition home or self-care (01) | LOC: CR 11:49 | PROVIDERS: PCP Family Medicine; Referring Provider Internal Medicine Cardiovascular Disease; Visit Provider Internal Medicine Cardiovascular Disease | DX: Z95.5 Presence of coronary angioplasty implant and graft (principal) ==

== ENCOUNTER → 2025-01-24 07:33 | Outpatient (BNVA) | payer MEDICARE, OTHER, SELFPAY | PROVIDERS: PCP Family Medicine; Visit Provider Podiatrist Foot & Ankle Surgery | DX: M19.071 Primary osteoarthritis, right ankle and foot (principal); M85.871 Other specified disorders of bone density and structure, right ankle and foot | CPT/HCPCS: 20600 ==

== ENCOUNTER 2025-01-29 09:58 | Outpatient (RCR) | payer SELFPAY | END 2025-02-28 23:59 | disposition home or self-care (01) | LOC: CR 09:58 | PROVIDERS: PCP Family Medicine; Referring Provider Internal Medicine Cardiovascular Disease; Visit Provider Internal Medicine Cardiovascular Disease | DX: Z95.5 Presence of coronary angioplasty implant and graft (principal) ==

== ENCOUNTER 2025-03-01 15:00 | Outpatient (RCR) | payer SELFPAY | END 2025-03-31 23:59 | disposition home or self-care (01) | LOC: CR 15:00 | PROVIDERS: PCP Family Medicine; Referring Provider Internal Medicine Cardiovascular Disease; Visit Provider Internal Medicine Cardiovascular Disease | DX: Z95.5 Presence of coronary angioplasty implant and graft (principal) ==

== ENCOUNTER 2025-04-02 11:40 | Outpatient (CLI) | payer MEDICARE, OTHER, SELFPAY ==
--- NOTE | 2025-04-02 11:48 | XRR_ITS ---
PROCEDURE INFORMATION: Exam: XR Right Ankle Exam date and time: 04/02/2025 11:55 AM Age: 69 years old Clinical indication: Pain; Ankle; Right; Additional info: Foot pain TECHNIQUE: Imaging protocol: Radiologic exam of the right ankle. Views: 3 or more views. COMPARISON: CR XR ankle RT 2V [id number] 04/15/2021 11:26 AM FINDINGS: Bones/joints: Normal alignment. No acute fracture. Calcaneal spurs. Midfoot osteoarthritis. Soft tissues: Normal. XR/XR ankle RT min 3V* [id number] IMPRESSION: No acute osseous abnormality.
--- NOTE | 2025-04-02 11:48 | XRR_ITS ---
PROCEDURE INFORMATION: Exam: XR Right Tibia and Fibula Exam date and time: 04/02/2025 11:55 AM Age: 69 years old Clinical indication: Pain; Lower leg; Right; Additional info: Leg pain TECHNIQUE: Imaging protocol: Radiologic exam of the right tibia and fibula. Views: 2 views. COMPARISON: CR XR foot RT min 3V* [id number] 05/19/2023 8:53 AM FINDINGS: Bones/joints: Normal alignment. No acute fracture. Postoperative change from three-part total knee arthroplasty. Calcaneal spurs. Soft tissues: Normal. XR/XR tibia fibula RT 2V [id number] IMPRESSION: No acute osseous abnormality.
== END 2025-04-02 11:41 | disposition home or self-care (01) ==
LOC: RAD 11:44
PROVIDERS: PCP Family Medicine; Visit Provider Family Medicine
DX: M25.571 Pain in right ankle and joints of right foot (principal); M77.31 Calcaneal spur, right foot; Z96.651 Presence of right artificial knee joint
CPT/HCPCS: 73590; 73610

== ENCOUNTER 2025-04-02 13:06 | Outpatient (RCR) | payer SELFPAY | END 2025-04-30 23:59 | disposition home or self-care (01) | LOC: CR 13:06 | PROVIDERS: PCP Family Medicine; Referring Provider Internal Medicine Cardiovascular Disease; Visit Provider Internal Medicine Cardiovascular Disease | DX: Z95.5 Presence of coronary angioplasty implant and graft (principal) ==

== ENCOUNTER 2025-05-01 11:40 | Outpatient (RCR) | payer SELFPAY | END 2025-05-31 23:59 | disposition home or self-care (01) | LOC: CR 11:40 | PROVIDERS: PCP Family Medicine; Referring Provider Internal Medicine Cardiovascular Disease; Visit Provider Internal Medicine Cardiovascular Disease | DX: Z95.5 Presence of coronary angioplasty implant and graft (principal) ==

== ENCOUNTER → 2025-05-02 07:41 | Outpatient (BNVA) | payer MEDICARE, OTHER, SELFPAY | PROVIDERS: PCP Family Medicine; Visit Provider Podiatrist Foot & Ankle Surgery | DX: M79.671 Pain in right foot (principal); Z71.89 Other specified counseling; M85.871 Other specified disorders of bone density and structure, right ankle and foot | CPT/HCPCS: 20600; J1100; J3301; J9999 ==

== ENCOUNTER 2025-06-01 13:35 | Outpatient (RCR) | payer SELFPAY | END 2025-06-30 23:59 | disposition home or self-care (01) | LOC: CR 13:35 | PROVIDERS: PCP Family Medicine; Referring Provider Internal Medicine Cardiovascular Disease; Visit Provider Internal Medicine Cardiovascular Disease | DX: Z95.5 Presence of coronary angioplasty implant and graft (principal) ==

== ENCOUNTER 2025-06-14 09:51 | Outpatient (CLI) | payer MEDICARE, OTHER, SELFPAY ==
--- NOTE | 2025-06-14 10:20 | MM_ITS ---
WS: [email or web address] BILATERAL SCREENING DIGITAL TOMOSYNTHESIS MAMMOGRAM WITH CAD HISTORY: Z12.31 - Encounter for screening mammogram for malignant ... COMPARISON: 04/25/2024, 02/11/2022 Bilateral CC and MLO views with tomosynthesis and synthetic mammography submitted. Computer aided detection analyzed. Breast composition: The breasts are heterogeneously dense, which may obscure small masses. No suspicious masses, microcalcifications or architectural distortion. Benign calcifications in each breast. Asymmetry in the upper outer quadrant LEFT breast is stable. MM/MM [facility] tomosynthesis [id number] IMPRESSION: BI-RADS: 2 - Benign FOLLOW UP: 1 Year Follow-up
== END 2025-06-14 09:52 | disposition home or self-care (01) ==
LOC: RAD 09:52
PROVIDERS: PCP Family Medicine; Visit Provider Nurse Practitioner Women's Health
DX: Z12.31 Encounter for screening mammogram for malignant neoplasm of breast (principal); R92.333 Mammographic heterogeneous density, bilateral breasts; R92.1 Mammographic calcification found on diagnostic imaging of breast; N64.89 Other specified disorders of breast
CPT/HCPCS: 77063; 77067

== ENCOUNTER 2025-07-01 12:27 | Outpatient (RCR) | payer SELFPAY | END 2025-07-31 23:59 | disposition home or self-care (01) | LOC: CR 12:27 | PROVIDERS: PCP Family Medicine; Referring Provider Internal Medicine Cardiovascular Disease; Visit Provider Internal Medicine Cardiovascular Disease | DX: Z95.5 Presence of coronary angioplasty implant and graft (principal) ==